=== PATIENT | male | born 1975 | race Caucasian/White ===

== ENCOUNTER 2017-11-08 11:14 | Emergency (ER) | payer OTHER ==
[2017-11-08] MEDS: NORCO, ANEXSIA 5/325MG TABLET (HYDROcodone/ACETAMINOPHEN) PO (12:16)
== END 2017-11-08 12:27 | disposition home or self-care (01) ==
LOC: M ED 11:14
DX: K04.7 Periapical abscess without sinus (principal); I10 Essential (primary) hypertension; Z91.013 Allergy to seafood; Z91.041 Radiographic dye allergy status; F17.210 Nicotine dependence, cigarettes, uncomplicated
CPT/HCPCS: 99283

== ENCOUNTER → 2019-04-24 | Outpatient (REF) | payer OTHER ==
[~2019-04-24] MED LIST: AUGMSUS PO; HYDR-3715 PO; IBUP-1022 PO; MAGICMW SSP
[2019-04-24 11:17] LABS: BASO # 0.1 10^3/uL (0.0-0.2); EOS # 0.3 10^3/uL (0.0-0.5); EOS % 2.8 % (0.0-3.0); HEMOGLOBIN 14.3 g/dl (13.5-17.5); LYMPH # 2.6 10^3/uL (1.5-5.0); LYMPH % 21.3 % (24.0-44.0); MEAN CORPUSCULAR HGB CONC 33.3 g/dl (32.0-36.5); MEAN CORPUSCULAR VOLUME 93.1 fl (80.0-96.0); MONO # 0.9 10^3/uL (0.0-0.8); MONO % 7.2 % (0.0-5.0); NEUTROPHILS # 8.2 10^3/uL (1.5-8.5); NEUTROPHILS % 67.3 % (36.0-66.0); PLATELET COUNT, AUTOMATED 199 10^3/uL (150-450); RED BLOOD COUNT 4.62 10^6/uL (4.30-6.10); WHITE BLOOD COUNT 12.2 10^3/uL (4.0-10.0)
[2019-04-24 11:36] LABS: ALBUMIN 3.9 GM/DL (3.2-5.2); ALT/SGPT 181 U/L (12-78); BILIRUBIN,TOTAL 0.6 MG/DL (0.2-1.0); BLOOD UREA NITROGEN 7 MG/DL (7-18); CALCIUM LEVEL 8.7 MG/DL (8.5-10.1); CARBON DIOXIDE LEVEL 29 MEQ/L (21-32); CHLORIDE LEVEL 106 MEQ/L (98-107); CHOLESTEROL LEVEL 269 MG/DL (<200); CHOLESTEROL RISK RATIO 6.897 (<5); CREATININE FOR GFR 0.86 MG/DL (0.70-1.30); FREE T4 1.17 NG/DL (0.76-1.46); GLOMERULAR FILTRATION RATE > 60.0 (>60); GLUCOSE, FASTING 128 MG/DL (70-100); HDL CHOLESTEROL 39 MG/DL (>40); LDL CHOLESTEROL 195 MG/DL (<100); NON-HDL-C 230 MG/DL; POTASSIUM SERUM 4.3 MEQ/L (3.5-5.1); SODIUM LEVEL 139 MEQ/L (136-145); THYROID STIMULATING HORMONE 0.841 uIU/ML (0.358-3.740); TOTAL PROTEIN 7.9 GM/DL (6.4-8.2); TRIGLYCERIDES LEVEL 173 MG/DL (<150)
[2019-04-24 11:43] LABS: HEMOGLOBIN A1c 7.1 %
== END ==
LOC: M SFHCPLAZ 09:42
PROVIDERS: ATTEND Nurse Practitioner Family
DX: I10 Essential (primary) hypertension (principal); Z13.228 Encounter for screening for other metabolic disorders; Z13.220 Encounter for screening for lipoid disorders

== ENCOUNTER 2020-06-23 14:06 | Emergency (ER) | payer OTHER ==
[~2020-06-23] VITALS: Ht 170.2 cm; Wt 110.9 kg
[2020-06-23 14:07] VITALS: BP 173/103
[2020-06-23] MEDS ORDERED: LISI10TA22 (14:24)
== END 2020-06-23 18:43 | disposition left against medical advice (07) ==
LOC: M ED 14:06
DX: Z53.21 Procedure and treatment not carried out due to patient leaving prior to being seen by health care provider (principal)

== ENCOUNTER → 2020-07-02 | Outpatient (CLI) | payer OTHER ==
[~2020-07-02] MED LIST changes: +LISI10TA22
--- NOTE | 2020-07-02 11:23 | REP ---
INDICATION: RUQ PAIN. COMPARISON: None FINDINGS: Multiple ultrasonographic images of the liver show diffuse increased echoes throughout the hepatic parenchyma without evidence of a mass or ductal dilatation. The common bile duct measures approximately 3.7 mm in its greatest transverse dimension. The maximal hepatic dimension is approximately 19.2 cm. Multiple ultrasonographic images of the gallbladder show no focal or diffuse gallbladder wall thickening. There are no echogenic foci within the gallbladder lumen, which casts acoustic shadows. There is no pericholecystic edema. Images of the pancreatic region show no gross abnormality. The imaged portion of the right kidney is unremarkable. IMPRESSION: Fatty infiltration of the liver. There is evidence of mild hepatomegaly. Accredited by the [employer] in General Ultrasound. <Electronically signed by Zack Barroso > 07/02/20 [id number]
== END ==
LOC: M RAD 10:16
PROVIDERS: ATTEND Nurse Practitioner Family
DX: R10.9 Unspecified abdominal pain (principal)

== ENCOUNTER → 2020-07-02 | Outpatient (REF) | payer OTHER ==
[2020-07-02 11:26] LABS: BASO # 0.1 10^3/uL (0.0-0.2); BASO % 1.3 % (0.0-1.0); EOS # 0.4 10^3/uL (0.0-0.5); EOS % 5.8 % (0.0-3.0); HEMATOCRIT 41.1 % (42.0-52.0); HEMOGLOBIN 13.9 g/dl (13.5-17.5); LYMPH # 2.2 10^3/uL (1.5-5.0); LYMPH % 31.6 % (24.0-44.0); MEAN CORPUSCULAR HEMOGLOBIN 31.2 pg (27.0-33.0); MEAN CORPUSCULAR HGB CONC 33.8 g/dl (32.0-36.5); MEAN CORPUSCULAR VOLUME 92.2 fl (80.0-96.0); MONO # 0.4 10^3/uL (0.0-0.8); MONO % 5.9 % (2.0-8.0); NEUTROPHILS # 3.9 10^3/uL (1.5-8.5); NEUTROPHILS % 55.1 % (36.0-66.0); PLATELET COUNT, AUTOMATED 187 10^3/uL (150-450); RED BLOOD COUNT 4.46 10^6/uL (4.30-6.10); WHITE BLOOD COUNT 7.1 10^3/uL (4.0-10.0)
[2020-07-02 11:37] LABS: INR 0.93; PROTHROMBIN TIME 12.7 SECONDS (12.5-14.3)
[2020-07-02 12:13] LABS: HEMOGLOBIN A1c 7.7 %
[2020-07-02 12:16] LABS: ALBUMIN 4.1 GM/DL (3.2-5.2); ALT/SGPT 194 U/L (12-78); BILIRUBIN,TOTAL 0.6 MG/DL (0.2-1.0); BLOOD UREA NITROGEN 9 MG/DL (7-18); C REACTIVE PROTEIN QUANTITATIV 1.51 MG/DL (0.00-0.30); CALCIUM LEVEL 9.2 MG/DL (8.5-10.1); CARBON DIOXIDE LEVEL 27 MEQ/L (21-32); CHLORIDE LEVEL 102 MEQ/L (98-107); CHOLESTEROL LEVEL 284 MG/DL (<200); CHOLESTEROL RISK RATIO 6.042 (<5); CREATININE FOR GFR 0.84 MG/DL (0.70-1.30); FERRITIN 272 NG/ML (26-388); FREE T4 1.06 NG/DL (0.76-1.46); GLOMERULAR FILTRATION RATE > 60.0 (>60); GLUCOSE, FASTING 194 MG/DL (70-100); HDL CHOLESTEROL 47 MG/DL (>40); IRON (FE) 96 UG/DL (65-175); LDL CHOLESTEROL 201 MG/DL (<100); NON-HDL-C 237 MG/DL; POTASSIUM SERUM 4.2 MEQ/L (3.5-5.1); SODIUM LEVEL 136 MEQ/L (136-145); TOTAL PROTEIN 8.2 GM/DL (6.4-8.2); TRIGLYCERIDES LEVEL 181 MG/DL (<150)
[2020-07-02 12:25] LABS: CREATININE, URINE 67.1 MG/DL; MAU/CREAT RATIO 1421.7 MCG/MG (0.0-30.0)
== END ==
LOC: M SFHCPLAZ 09:40
PROVIDERS: ATTEND Nurse Practitioner Family
DX: R10.11 Right upper quadrant pain (principal); I10 Essential (primary) hypertension; R74.8 Abnormal levels of other serum enzymes; E78.5 Hyperlipidemia, unspecified; E11.9 Type 2 diabetes mellitus without complications; S30.1XXA Contusion of abdominal wall, initial encounter; W18.30XA Fall on same level, unspecified, initial encounter; Y92.009 Unspecified place in unspecified non-institutional (private) residence as the place of occurrence of the external cause

== ENCOUNTER 2020-07-04 11:50 | Emergency (ER) | payer OTHER ==
[~2020-07-04] VITALS: Ht 172.7 cm; Wt 112.2 kg
[2020-07-04] MEDS ORDERED: diphenhydrAMINE 50MG/ML VIAL (J1200) IV STA (12:09)
[2020-07-04] MEDS ORDERED: methylPREDNISolone 125MG 2ML VIAL IV ONE (12:10)
[2020-07-04] MEDS ORDERED: MORPHINE 4 MG/ML 1ML VIAL/SYRINGE (J2270) IV PRN (12:10)
[2020-07-04] MEDS ORDERED: ONDANSETRON 4MG/2ML VIAL IV ONE (12:10)
[2020-07-04 12:28] LABS: HEMATOCRIT 39.4 % (42.0-52.0); HEMOGLOBIN 13.5 g/dl (13.5-17.5); MEAN CORPUSCULAR HEMOGLOBIN 31.1 pg (27.0-33.0); MEAN CORPUSCULAR HGB CONC 34.3 g/dl (32.0-36.5); MEAN CORPUSCULAR VOLUME 90.8 fl (80.0-96.0); PLATELET COUNT, AUTOMATED 195 10^3/uL (150-450); RED BLOOD COUNT 4.34 10^6/uL (4.30-6.10)
[2020-07-04 12:46] LABS: INR 0.96
[2020-07-04] MEDS ORDERED: ISOVUE-370 76% 100ML VIAL As Ordered ONE (12:55)
[2020-07-04 12:57] LABS: ALBUMIN 3.7 GM/DL (3.2-5.2); BILIRUBIN,DIRECT 0.2 MG/DL (0.0-0.2); BILIRUBIN,TOTAL 0.8 MG/DL (0.2-1.0); TOTAL PROTEIN 7.6 GM/DL (6.4-8.2)
[2020-07-04 13:06] LABS: ATYPICAL LYMPH 1 % (0-5); EOSINOPHILS 7 % (0-3); LYMPHOCYTES 29 % (16-44); MONOCYTES 3 % (0-5); NEUTROPHILS 60 % (28-66); PLATELET ESTIMATE NORMAL (NORMAL)
--- NOTE | 2020-07-04 13:26 | REP ---
INDICATION: abd pain/brusing anterior abd and flank ? retro bleed. COMPARISON: None TECHNIQUE: Standard helical technique after the intravenous administration of 100 cc Isovue 370 FINDINGS: Mild chronic changes are seen in the lung bases. There are no pleural or pericardial effusions. There is hepatomegaly. The gallbladder, spleen, pancreas, adrenal glands, and kidneys are within normal limits. The abdominal aorta and para-regions are within normal limits. The bowel loops the mesenteries are within normal limits. There is no free fluid or free air. There is no mass or adenopathy. In the right upper mid abdominal region within the lateral soft tissues there is an approximately 14 by 4.4 by 11 cm sized area of soft tissue thickening and mixed density. There are no underlying rib fractures. This includes and is external to the transversalis muscle and fascia. This extends to the deep subcutanea. There are no concomitant well-demarcated air-fluid levels. Bone window technique throughout the examination shows no evidence of a fracture. IMPRESSION: 1. Soft tissue contusion and likely concomitant extraperitoneal hematoma as described above. 2. Hepatomegaly. <Electronically signed by Zack Barroso > 07/04/20 [id number]
[2020-07-04] MEDS ORDERED: PERC5TAB12 PO ×2 (14:22→14:30)
[2020-07-04 14:45] VITALS: BP 163/98
--- NOTE | 2020-07-04 18:19 | ECGEPIP ---
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
== END 2020-07-04 15:09 | disposition home or self-care (01) ==
LOC: M ED 11:50
DX: S30.1XXA Contusion of abdominal wall, initial encounter (principal); X58.XXXA Exposure to other specified factors, initial encounter; Y92.89 Other specified places as the place of occurrence of the external cause; E11.9 Type 2 diabetes mellitus without complications; I10 Essential (primary) hypertension; E78.5 Hyperlipidemia, unspecified; Z91.041 Radiographic dye allergy status; F17.210 Nicotine dependence, cigarettes, uncomplicated
CPT/HCPCS: 74177; 80047; 80076; 83690; 85025; 85610; 86850; 86900; 86901; 93005; 93041; 96374; 96375; 99285; J1200; J2270; J2405; J2930; Q9967

== ENCOUNTER → 2020-11-24 | Outpatient (CLI) | payer OTHER ==
[~2020-11-24] MED LIST changes: +PERC5TAB12 PO
[2020-11-24 13:36] LABS: BASO # 0.1 10^3/uL (0.0-0.2); BASO % 1.3 % (0.0-1.0); EOS # 0.2 10^3/uL (0.0-0.5); EOS % 2.8 % (0.0-3.0); HEMATOCRIT 43.6 % (42.0-52.0); HEMOGLOBIN 14.2 g/dl (13.5-17.5); LYMPH # 2.6 10^3/uL (1.5-5.0); LYMPH % 40.7 % (24.0-44.0); MEAN CORPUSCULAR HEMOGLOBIN 29.8 pg (27.0-33.0); MEAN CORPUSCULAR HGB CONC 32.6 g/dl (32.0-36.5); MEAN CORPUSCULAR VOLUME 91.4 fl (80.0-96.0); MONO # 0.4 10^3/uL (0.0-0.8); MONO % 6.8 % (2.0-8.0); NEUTROPHILS % 47.9 % (36.0-66.0); PLATELET COUNT, AUTOMATED 212 10^3/uL (150-450); RED BLOOD COUNT 4.77 10^6/uL (4.30-6.10); WHITE BLOOD COUNT 6.3 10^3/uL (4.0-10.0)
[2020-11-24 14:53] LABS: CREATININE, URINE 34.4 MG/DL; MALB URINE SIEMENS 41.7 MG/L; MAU/CREAT RATIO 121.2 MCG/MG (0.0-30.0)
[2020-11-24 15:45] LABS: ALT/SGPT 217 U/L (12-78); BILIRUBIN,TOTAL 0.3 MG/DL (0.2-1.0); BLOOD UREA NITROGEN 9 MG/DL (7-18); CALCIUM LEVEL 9.5 MG/DL (8.5-10.1); CARBON DIOXIDE LEVEL 28 MEQ/L (21-32); CHLORIDE LEVEL 104 MEQ/L (98-107); CHOLESTEROL LEVEL 279 MG/DL (<200); CHOLESTEROL RISK RATIO 5.936 (<5); CREATININE FOR GFR 0.87 MG/DL (0.70-1.30); GLOMERULAR FILTRATION RATE > 60.0 (>60); GLUCOSE, FASTING 104 MG/DL (70-100); HDL CHOLESTEROL 47 MG/DL (>40); LDL CHOLESTEROL 213 MG/DL (<100); NON-HDL-C 232 MG/DL; POTASSIUM SERUM 4.5 MEQ/L (3.5-5.1); SODIUM LEVEL 137 MEQ/L (136-145); THYROID STIMULATING HORMONE 0.587 uIU/ML (0.358-3.740); TOTAL PROTEIN 8.2 GM/DL (6.4-8.2); TRIGLYCERIDES LEVEL 97 MG/DL (<150)
[2020-11-24 18:04] LABS: HEMOGLOBIN A1c 7.1 %
== END ==
LOC: M PLALAB 10:54
PROVIDERS: ATTEND Nurse Practitioner Family
DX: E11.9 Type 2 diabetes mellitus without complications (principal); E78.5 Hyperlipidemia, unspecified; I10 Essential (primary) hypertension

== ENCOUNTER 2021-01-03 08:19 | Emergency (ER) | payer OTHER ==
[~2021-01-03] VITALS: Ht 172.7 cm; Wt 103.2 kg
--- OUTSIDE RECORDS SUMMARY | 2021-01-03 08:29 | CCD ---
Author Author [facility] Organization [facility] Address Unknown Phone Unavailable Care Team Providers Care Commercial Horticulture Instructor Name Role Phone Maring, Marko PA Unavailable Unavailable Maring, Marko PA Unavailable Unavailable Maring, Marko PA Unavailable Unavailable Maring, Marko PA Unavailable Unavailable Maring, Marko PA Unavailable Unavailable Maring, Marko PA Unavailable Unavailable Maring, Marko PA Unavailable Unavailable Maring, Marko PA Unavailable Unavailable Maring, Mrako PA Unavailable Unavailable Maring, Marko PA Unavailable Unavailable Maring, Marko PA Unavailable Unavailable Maring, Marko PA Unavailable Unavailable Maring, Marko PA Unavailable Unavailable Maring, Marko PA Unavailable Unavailable Maring, Marko PA Unavailable Unavailable Maring, Marko PA Unavailable Unavailable Oswaldo Banuelos MD Unavailable Unavailable Oswaldo Banuelos MD Unavailable Unavailable Oswaldo Banuelos MD Unavailable Unavailable Oswaldo Banuelos MD Unavailable Unavailable Oswaldo Banuelos MD Unavailable Unavailable Oswaldo Banuelos MD Unavailable Unavailable Banuelos, C Lara MD Unavailable Unavailable Banuelos, C Lara MD Unavailable Unavailable Banuelos, C Lara MD Unavailable Unavailable Banuelos, C Lara MD Unavailable Unavailable Banuelos, C Lara MD Unavailable Unavailable Banuelos, C Lara MD Unavailable Unavailable Banuelos, C Lara MD Unavailable Unavailable Banuelos, C Lara MD Unavailable Unavailable Banuelos, C Lara MD Unavailable Unavailable Banuelos, C Lara MD Unavailable Unavailable Banuelos, C Lara MD Unavailable Unavailable Banuelos, C Lara MD Unavailable Unavailable Banuelos, C Lara MD Unavailable Unavailable Banuelos, C Lara MD Unavailable Unavailable Banuelos, C Lara MD Unavailable Unavailable Banuelos, C Lara MD Unavailable Unavailable Banuelos, C Lara MD Unavailable Unavailable Banuelos, C Lara MD Unavailable Unavailable Banuelos, C Lara MD Unavailable Unavailable Re-disclosure Warning The records that you are about to access may contain information from federally-assisted alcohol or drug abuse programs. If such information is present, then the following federally mandated warning applies: This information has been disclosed to you from records protected by federal confidentiality rules (42 CFR part 2). The federal rules prohibit you from making any further disclosure of this information unless further disclosure is expressly permitted by the written consent of the person to whom it pertains or as otherwise permitted by 42 CFR part 2. A general authorization for the release of medical or other information is NOT sufficient for this purpose. The Federal rules restrict any use of the information to criminally investigate or prosecute any alcohol or drug abuse patient.The records that you are about to access may contain highly sensitive health information, the redisclosure of which is protected by Article 27-F of the [facility] Public Health law. If you continue you may have access to information: Regarding HIV / AIDS; Provided by facilities licensed or operated by the [facility] Office of Mental Health; or Provided by the [facility] Office for People With Developmental Disabilities. If such information is present, then the following [facility] mandated warning applies: This information has been disclosed to you from confidential records which are protected by state law. State law prohibits you from making any further disclosure of this information without the specific written consent of the person to whom it pertains, or as otherwise permitted by law. Any unauthorized further disclosure in violation of state law may result in a fine or mcfp sentence or both. A general authorization for the release of medical or other information is NOT sufficient authorization for further disc losure. Encounters Encounter Providers Location Date Indications Data Source(s ) [place] [address] [facility] [address] 11/24/2020 12:00:00 AM EDT eCW1 ([facility]) Outpatient Attender: Marko PHAN 11/02/19 03:48:23 PM EDT - 11/01/2020 04:12:59 PM EDT [facility] ([facility] ) [place] [address] [facility] [address] 07/14/2020 12:00:00 AM EDT eCW1 ([facility]) [place] [address] [facility] [address] 07/03/2020 12:00:00 AM EDT eCW1 ([facility]) Unknown [address] [facility] [address] 07/03/2020 12:00:00 AM EDT eCW1 ([facility]) Outpatient Attender: Marko PHAN 06/27/19 08:11:34 AM EDT - 06/26/2020 08:56:10 AM EDT [facility] ([facility] ) [place] [address] [address] 06/23/2020 12:00:00 AM EDT eCW1 ([facility]) Outpatient [address] [address] 06/06/2020 12:00:00 AM EDT eCW1 ([facility]) [place] [address] [address] 06/06/2020 12:00:00 AM EDT eCW1 ([facility]) Outpatient Attender: Lara Banuelos MD 0 04/25/2020 11:08:33 AM EST - 04/25/2020 12:40:34 PM EST [facility] ([facility]) Unknown [address] [facility] [address] 12/26/2019 12:00:00 AM EDT eCW1 ([facility]) Immunizations Vaccine Date Status Description Data Source(s) COVID-19 VACCINE Pfizer 10/26/2020 12:00:00 AM EDT completed [facility] Vaccine Series Complete: YESThis Data wa s Submitted to [facility] Via [employer]. COVID-19 VACCINE Pfizer 10/06/2020 12:00:00 AM EDT completed [facility] Vaccine Series Complete: NOThis Data was Submitted to [facility] [employer]. Medications Medication Brand Name Start Date Product Form Dose Route Admi nistrative Instructions Pharmacy Instructions Status Indications Reaction Description Data Source(s) Steglatro 15 MG Steglatro 15 MG 07/02/2020 12:00:00 AM EDT 1.0 { tablet} active Steglatro 15 MG eCW1 ([facility]) alogliptin 25 MG Oral Tablet Alogliptin Benzoate 25 MG Alogliptin Benzoate 25 MG 07/02/2020 12:00:00 AM EDT 1.0 {tablet} activ e Alogliptin Benzoate 25 MG eCW1 ([facility]) alogliptin 25 MG Oral Tablet Alogliptin Benzoate 25 MG Alogliptin Benzoate 25 MG 07/02/2020 12:00:00 AM EDT 1.0 {tablet} activ e Alogliptin Benzoate 25 MG eCW1 ([facility]) Steglatro 15 MG Steglatro 15 MG 07/02/2020 12:00:00 AM EDT 1.0 { tablet} active Steglatro 15 MG eCW1 ([facility]) Augmentin 875-125 MG UNK 06/06/2020 12:00:00 AM EDT 1.0 {tablet } active Augmentin 875-125 MG eCW1 ([facility]) Augmentin 875-125 MG UNK 06/06/2020 12:00:00 AM EDT 1.0 {tablet } active Augmentin 875-125 MG eCW1 ([facility]) Augmentin 875-125 MG UNK 06/06/2020 12:00:00 AM EDT 1.0 {tablet } active Augmentin 875-125 MG eCW1 ([facility]) Insurance Providers Payer name Policy type / Coverage type Policy ID Covered alliance party ID Covered alliance party's relationship to kwan Policy Kwan Plan Information E-Generator. [id number] Self [id number] RPR- Needs Payer Match [id number] Self [id number] RPR- Needs Payer Match [id number] Self [id number] [facility] [id number] DINA [id number] SP [id number] SELF PAY [id number] SP [id number] Problems, Conditions, and Diagnoses No Information Surgeries/Procedures Procedure Description Date Indications Data Source(s) ECG ROUTINE ECG W/LEAST 12 LDS W/I&R 06/06/2020 12:00: 00 AM EDT eCW1 ([facility]) Results ID Date Data Source Islet Cell Antibodies 11/24/2020 12:00:00 AM EDT eCW1 ([facility]) Name Value Range Interpretation Code Description Data Danielle rce(s) Supporting Document(s) Negative Neg:<1:1 ISLET CELL ANTIBODIES eCW 1 ([facility]) ID Date Data Source [id number] AUTOANTIBODY 11/24/2020 12:00:00 AM EDT eCW1 ([facility]) Name Value Range Interpretation Code Description Data Danielle rce(s) Supporting Document(s) <5.0 0.0-5.0 [id number] AUTOANTIBODY eCW1 ([facility]) ID Date Data Source C-PEPTIDE 11/24/2020 12:00:00 AM EDT eCW1 ([facility]) Name Value Range Interpretation Code Description Data Danielle rce(s) Supporting Document(s) 4.9 1.1-4.4 C-PEPTIDE eCW1 ([facility]) ID Date Data Source [id number] 11/24/2020 12:00:00 AM EDT eCW1 ([facility]) Name Value Range Interpretation Code Description Data Danielle rce(s) Supporting Document(s) Hemoglobin A1c/Hemoglobin.total in Blood 7.1 HEMOGLOBIN A1c eCW1 ([facility]) ID Date Data Source [id number] 11/24/2020 12:00:00 AM EDT eCW1 ([facility]) Name Value Range Interpretation Code Description Data Danielle rce(s) Supporting Document(s) Microalbumin/Creatinine [Mass Ratio] in Urine 34.4 CREATININE, URINE eCW1 ([facility]) Albumin/Creatinine [Mass Ratio] in Urine 41.7 MALB URINE SIEMENS eCW1 ([facility]) Microalbumin/Creatinine [Ratio] in Urine 121.2 0.0-30.0 LEONIDAS/CREAT RATIO eCW1 ([facility]) ID Date Data Source TSH 11/24/2020 12:00:00 AM EDT eCW1 ([facility]) Name Value Range Interpretation Code Description Data Danielle rce(s) Supporting Document(s) 0.587 0.358-3.740 THYROID STIMULATING HORM ONE eCW1 ([facility]) ID Date Data Source LIPID PANEL (CARDIAC RISK) 11/24/2020 12:00:00 AM EDT eCW1 ( [facility]) Name Value Range Interpretation Code Description Data Danielle rce(s) Supporting Document(s) Triglyceride [Mass/volume] in Serum or Plasma by calculation 97 <150 TRIGLYCERIDES LEVEL eCW1 ([facility]) Cholesterol [Moles/volume] in Serum or Plasma 279 <200 CHOLESTEROL LEVEL eC ([facility]) Cholesterol in LDL [Mass/volume] in Serum or Plasma by calculation 213 <100 LDL CHOLESTEROL eCW1 ([facility]) Cholesterol in HDL [Moles/volume] in Serum or Plasma 47 >40 HDL CHOLESTEROL eCW1 ([facility]) 232 NON-HDL-C eCW1 ([facility]) 5.936 <5 CHOLESTEROL RISK RATIO eCW ([facility]) ID Date Data Source FREE T4 11/24/2020 12:00:00 AM EDT eCW1 ([facility]) Name Value Range Interpretation Code Description Data Danielle rce(s) Supporting Document(s) 1.00 0.76-1.46 FREE T4 eCW1 ([facility]) ID Date Data Source Comprehensive Metabolic Profile (CMP) 11/24/2020 12:00:00 AM EDT eCW1 ([facility]) Name Value Range Interpretation Code Description Data Danielle rce(s) Supporting Document(s) 104 70-100 GLUCOSE, FASTING eCW1 ([facility]) 9 7-18 BLOOD UREA NITROGEN eCW1 ([facility]) 0.87 0.70-1.30 CREATININE FOR GFR eCW1 ([facility]) > 60.0 >60 GLOMERULAR FILTRATION RATE eCW 1 ([facility]) 104 98-107 CHLORIDE LEVEL eCW1 ([facility]) 4.5 3.5-5.1 POTASSIUM SERUM eCW1 ([facility]) 28 21-32 CARBON DIOXIDE LEVEL eCW1 ([facility]) 137 136-145 SODIUM LEVEL eCW1 ([facility]) 83 7-37 AST/SGOT eCW1 ([facility]) 9.5 8.5-10.1 CALCIUM LEVEL eCW1 ([facility]) 217 12-78 ALT/SGPT eCW1 ([facility]) 0.3 0.2-1.0 BILIRUBIN,TOTAL eCW1 ([facility]) 74 45-117 ALKALINE PHOSPHATASE eCW1 ([facility]) 8.2 6.4-8.2 TOTAL PROTEIN eCW1 ([facility]) 4.0 3.2-5.2 ALBUMIN eCW1 ([facility]) 1.0 ALBUMIN/GLOBULIN RATIO eCW1 ([facility]) ID Date Data Source CBC with Differential 11/24/2020 12:00:00 AM EDT eCW1 ([facility]) Name Value Range Interpretation Code Description Data Danielle rce(s) Supporting Document(s) 6.3 4.0-10.0 WHITE BLOOD COUNT eCW1 ([facility]) 43.6 42.0-52.0 HEMATOCRIT eCW1 ([facility]) 14.2 13.5-17.5 HEMOGLOBIN eCW1 ([facility]) 4.77 4.30-6.10 RED BLOOD COUNT eCW1 ([facility]) 91.4 80.0-96.0 MEAN CORPUSCULAR VOLUME e CW1 ([facility]) 29.8 27.0-33.0 MEAN CORPUSCULAR HEMOGLOB IN eCW1 ([facility]) 32.6 32.0-36.5 MEAN CORPUSCULAR HGB CONC eCW1 ([facility]) 13.2 11.5-14.5 RED CELL DISTRIBUTION WID TH eCW1 ([facility]) 212 150-450 PLATELET COUNT, AUTOMATED eCW1 ([facility]) 40.7 24.0-44.0 LYMPH % eCW1 ([facility]) 47.9 36.0-66.0 NEUTROPHILS % eCW1 ([facility]) 6.8 2.0-8.0 MONO % eCW1 ([facility]) 3.0 1.5-8.5 NEUTROPHILS # eCW1 ([facility]) 1.3 0.0-1.0 BASO % eCW1 ([facility]) 2.6 1.5-5.0 LYMPH # eCW1 ([facility]) 2.8 0.0-3.0 EOS % eCW1 ([facility]) 0.1 0.0-0.2 BASO # eCW1 ([facility]) 0.4 0.0-0.8 MONO # eCW1 ([facility]) 0.2 0.0-0.5 EOS # eCW1 ([facility]) Procedure Social History Code Duration Value Status Description Data Source(s ) Smoking 11/24/2020 12:00:00 AM EDT Current Smoker completed Curre nt Smoker eCW1 ([facility]) Smoking 07/14/2020 12:00:00 AM EDT Current Smoker completed Curre nt Smoker eCW1 ([facility]) Smoking 07/02/2020 12:00:00 AM EDT Current Smoker completed Curre nt Smoker eCW1 ([facility]) Smoking 07/02/2020 12:00:00 AM EDT Current Smoker completed Curre nt Smoker eCW1 ([facility]) Smoking 06/06/2020 12:00:00 AM EDT Current Smoker completed Curre nt Smoker eCW1 ([facility]) Smoking 06/06/2020 12:00:00 AM EDT Current Smoker completed Curre nt Smoker eCW1 ([facility]) Smoking 06/06/2020 12:00:00 AM EDT Current Smoker completed Curre nt Smoker eCW1 ([facility]) Vital Signs ID Date Data Source UNK Name Value Range Interpretation Code Description Data Source(s) Body weight 223.8 [lb_av] 223.8 [lb_av] eCW1 ([facility]) Body weight 101.52 kg 101.52 kg eCW1 ([facility]) Body height 67 [in_i] 67 [in_i] eCW1 ([facility]) Body mass index (BMI) [Ratio] 35.05 kg/m2 35.05 kg/m2 eCW1 ([facility]) Heart rate 103 /min 103 /min eCW1 ([facility]) Respiratory rate 18 /min 18 /min eCW1 ([facility]) Body temperature 97.1 [degF] 97.1 [degF] eCW1 ( [facility]) Systolic blood pressure 130 mm[Hg] 130 mm[Hg] e CW1 ([facility]) Diastolic blood pressure 78 mm[Hg] 78 mm[Hg] eCW1 ([facility]) Body weight 237 [lb_av] 237 [lb_av] eCW1 ([facility]) Body height 67 [in_i] 67 [in_i] eCW1 ([facility]) Body mass index (BMI) [Ratio] 37.12 kg/m2 37.12 kg/m2 eCW1 ([facility]) Heart rate 114 /min 114 /min eCW1 ([facility]) Respiratory rate 18 /min 18 /min eCW1 ([facility]) Body temperature 97.5 [degF] 97.5 [degF] eCW1 ( [facility]) Systolic blood pressure 132 mm[Hg] 132 mm[Hg] e CW1 ([facility]) Diastolic blood pressure 80 mm[Hg] 80 mm[Hg] eCW1 ([facility]) Body weight 245 [lb_av] 245 [lb_av] eCW1 ([facility]) Body height 67 [in_i] 67 [in_i] eCW1 ([facility]) Body mass index (BMI) [Ratio] 38.37 kg/m2 38.37 kg/m2 eCW1 ([facility]) Heart rate 125 /min 125 /min eCW1 ([facility]) Respiratory rate 18 /min 18 /min eCW1 ([facility]) Body temperature 97.3 [degF] 97.3 [degF] eCW1 ( [facility]) Systolic blood pressure 136 mm[Hg] 136 mm[Hg] e CW1 ([facility]) Diastolic blood pressure 82 mm[Hg] 82 mm[Hg] eCW1 ([facility]) Patient Treatment Plan of Care Planned Activity Planned Date Details Description Data Source (s) alogliptin 25 MG Oral Tablet 07/02/2020 12:00:00 AM EDT eCW1 ([facility]) Steglatro 15 MG 07/02/2020 12:00:00 AM EDT eCW1 ([facility]) alogliptin 25 MG Oral Tablet 07/02/2020 12:00:00 AM EDT eCW1 ([facility]) Steglatro 15 MG 07/02/2020 12:00:00 AM EDT eCW1 ([facility]) Augmentin 875-125 MG 06/06/2020 12:00:00 AM EDT eCW1 ([facility]) Augmentin 875-125 MG 06/06/2020 12:00:00 AM EDT eCW1 ([facility]) Augmentin 875-125 MG 06/06/2020 12:00:00 AM EDT eCW1 ([facility])
--- OUTSIDE RECORDS SUMMARY | 2021-01-03 08:29 | CCD ---
Author Author [facility] Organization [facility] Address Unknown Phone Unavailable Care Team Providers Care Compliance Advisor Name Role Phone Amairani Lane Unavailable PROBLEMS Type Condition ICD9-CM Code [id number] Code Onset Dates Condition S tatus W/U Status Risk SNOMED Code Notes Problem Obesity (BMI 30-39.9) E66.9 Active confirmed 101743059 Problem Essential hypertension I10 Active confirmed 57471831 Problem Diabetes mellitus, type 2 E11.9 Active confirmed 46851647 Problem Alcohol abuse, daily use F10.10 Active confirmed 70709390 Problem Hyperlipidemia E78.5 Active confirmed 65356 004 ALLERGIES Allergen (clinical drug ingredient) Drug/Non Drug Allergy do cumented on EMR Reaction Allergy Type Onset Date Status contrast Dye Rash Non Drug Allergy Active ENCOUNTERS from 1973 to 2020-12-01 Encounter Location Date Provider Diagnosis [address] [phone] [place] [address] 13 Nov, [address] Essential hypertension I10 ; Obesity (BMI 30-39.9) E66.9 ; Diabetes mellitus, type 2 E11.9 ; Hyperlipidemia E78.5 ; Elevated liver enzymes R74.8 and Alcohol abuse, daily use F10.10 IMMUNIZATIONS No Information SOCIAL HISTORY Tobacco Use: Social History Observation Description Date Details (start date - stop date) Current Smoker Sex Assigned At : Social History Observation Description Sex Assigned At Unknown Education: Question Answer Notes Level of Education: Finished College Language: Question Answer Notes Languages spoken: Icelandic Jew: Question Answer Notes Jew 31 None Alcohol Screening: Question Answer Notes Did you have a drink containing alcohol in the past year? Ye s Points 4 Interpretation Positive How often did you have six or more drinks on one occas ion in the past year? Never (0 points) How many drinks did you have on a typica l day when you were drinking in the past year? 1 or 2 (0 points) How often did you have a drink containing alcohol in t he past year? Four or more times a week (4 points) Tobacco Use: Question Answer Notes Are you a: current smoker Smoking Cessation Information Given 05/01/2019 Patient counseled on the dangers of tobacco use and urged to quit: 05/01/2019 How many cigarettes a day do you smoke? 11-20 Are you interested in quitting? Thinking about quitting Counseled the patient on smoking cessation, education provid ed 05/01/2019 REASON FOR REFERRAL No Information VITAL SIGNS Weight 223.8 lbs Nov, Weight-kg 101.52 kg Nov, Height 67 in Nov, BMI 35.05 kg/m2 Nov, Heart Rate 103 /min Nov, Respiratory Rate 18 /min Nov, Temperature 97.1 degrees Fahrenheit Nov, Oximetry 97% Nov, Blood pressure systolic 130 mm Hg Nov, Blood pressure diastolic 78 mm Hg Nov, MEDICATIONS Medication SIG (Take, Route, Frequency, Duration) Notes Start Da te End Date Status Alogliptin Benzoate 25 MG 1 tablet Orally Once a day for 30 day(s) Active Steglatro 15 MG 1 tablet Orally Once a day for 30 day(s) Active BL Lancets 1 1 lancet e11.9 Daily for 90 day(s) Active Alcohol Swabs 70 % as directed e11.9 Daily for 90 day(s) Active OneTouch Verio 1 as directed E11.9 Daily for 90 day(s) Active Lisinopril 20 MG 1 tablet Orally Once a day for 30 day(s) Active Atorvastatin Calcium 20 MG 1 tablet Orally Once a day for 30 day(s) Active Aspirin 81 MG as directed Orally Once a day for 30 Active Glucometer (Verio IQ) as directed E11.9 Daily for 30 day(s) Active PROCEDURES No Information RESULTS Component Value Reference Range CBC with Differential Reviewed date:11/24/2020 17:07:00 Interpretation: Performing Lab:[facility], [facility] [id number] , ,[place] [address] WHITE BLOOD COUNT 6.3 4.0-10.0 RED BLOOD COUNT 4.77 4.30-6.10 HEMOGLOBIN 14.2 13.5-17.5 HEMATOCRIT 43.6 42.0-52.0 MEAN CORPUSCULAR VOLUME 91.4 80.0-96.0 MEAN CORPUSCULAR HEMOGLOBIN 29.8 27.0-33.0 MEAN CORPUSCULAR HGB CONC 32.6 32.0-36.5 RED CELL DISTRIBUTION WIDTH 13.2 11.5-14.5 PLATELET COUNT, AUTOMATED 212 150-450 NEUTROPHILS % 47.9 36.0-66.0 LYMPH % 40.7 24.0-44.0 MONO % 6.8 2.0-8.0 EOS % 2.8 0.0-3.0 BASO % 1.3 0.0-1.0 NEUTROPHILS # 3.0 1.5-8.5 LYMPH # 2.6 1.5-5.0 MONO # 0.4 0.0-0.8 EOS # 0.2 0.0-0.5 BASO # 0.1 0.0-0.2 Comprehensive Metabolic Profile (CMP) Reviewed date:11/24/2020 17:06:49 Interpretation: Performing Lab:[facility], [facility] [address] [facility] [id number] , ,[place] [address] GLUCOSE, FASTING 104 70-100 BLOOD UREA NITROGEN 9 7-18 CREATININE FOR GFR 0.87 0.70-1.30 GLOMERULAR FILTRATION RATE > 60.0 >60 SODIUM LEVEL 137 136-145 POTASSIUM SERUM 4.5 3.5-5.1 CHLORIDE LEVEL 104 98-107 CARBON DIOXIDE LEVEL 28 21-32 CALCIUM LEVEL 9.5 8.5-10.1 AST/SGOT 83 7-37 ALT/SGPT 217 12-78 ALKALINE PHOSPHATASE 74 45-117 BILIRUBIN,TOTAL 0.3 0.2-1.0 TOTAL PROTEIN 8.2 6.4-8.2 ALBUMIN 4.0 3.2-5.2 ALBUMIN/GLOBULIN RATIO 1.0 FREE T4 Reviewed date:11/24/2020 17:06:02 Interpretation: Performing Lab:[facility] [address] [facility] [address] , ,[place] [address] FREE T4 1.00 0.76-1.46 LIPID PANEL (CARDIAC RISK) Reviewed date:11/24/2020 17:06:19 Interpretation: Performing Lab:[facility] [address] [facility] [address] , ,[place] [address] TRIGLYCERIDES LEVEL 97 <150 CHOLESTEROL LEVEL 279 <200 HDL CHOLESTEROL 47 >40 LDL CHOLESTEROL 213 <100 NON-HDL-C 232 CHOLESTEROL RISK RATIO 5.936 <5 TSH Reviewed date:11/24/2020 17:06:08 Interpretation: Performing Lab:[facility] hospital [facility]ATORY [address] [facility] [address] , ,[facility] THYROID STIMULATING HORMONE 0.587 0.358-3.740 MICROALBUMIN RANDOM Reviewed date:11/24/2020 17:06:27 Interpretation: Performing Lab:[facility] [address] [facility] [address] , ,[place] [address] CREATININE, URINE 34.4 MALB URINE SIEMENS 41.7 LEONIDAS/CREAT RATIO 121.2 0.0-30.0 HEMOGLOBIN A1c Reviewed date:11/25/2020 12:54:54 Interpretation: Performing Lab:[facility] hospital LAB[facility]ORY [address] [facility] [address] , ,[place] [address] HEMOGLOBIN A1c 7.1 ESTIMATED AVERAGE GLUCOSE 157 60-110 C-PEPTIDE Reviewed date:11/28/2020 17:19:36 Interpretation: Performing Lab:[facility], [facility] [address] [place] [address] , ,[place] [address] C-PEPTIDE 4.9 1.1-4.4 BECKY-65 AUTOANTIBODY Reviewed date:11/28/2020 17:19:44 Interpretation: Performing Lab:[facility], [facility] [address] [facility] [address] , ,[place] [address] BECKY-65 AUTOANTIBODY <5.0 0.0-5.0 Islet Cell Antibodies Reviewed date:11/28/2020 17:19:41 Interpretation: Performing Lab:[facility], [facility] [address] [facility] [address] , ,[place] [address] ISLET CELL ANTIBODIES Negative Neg:<1:1 REASON FOR VISIT SEPT F/U MEDICAL (GENERAL) HISTORY Type Description Date Medical History Hypertension Medical History Nicotine use disorder Medical History ETOH use Medical History Hepatomegaly Medical History Fatty liver disease Medical History Hyperlipidemia Medical History DM type 2 Surgical History No Surgical history information Goals Section No Information Health Concerns No Information MEDICAL EQUIPMENT No Information MENTAL STATUS No Information FUNCTIONAL STATUS No Information ASSESSMENTS Encounter Date Diagnosis Assessment Notes Treatment Notes Treatm ent Clinical Notes Nov, Essential hypertension (ICD-10 - I10) 06/2020 0.8, 9, K 4.2 LEONIDAS 1421 increase to 20,g 04/2019 7, 0.8, K 4.3 lisino 13 Nov, 2020 Obesity (BMI 30-39.9) (ICD-10 - E66.9) encouraged weight loss Nov, Diabetes mellitus, type 2 (ICD-10 - E11.9) advised compliance with medication/diet changes had no f/u since 04/2019 metformin had not taken (difficulty swallowing pills) 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 contingency: Islet cell sammi/BECKY 06/2020 7.7 LEONIDAS 1421 DIANE as per HTN 04/2019 7.1, 04/2019 TSH/T4 0.84, 1.17 Nov, Hyperlipidemia (ICD-10 - E78.5) atorvastatin 40mg [id number], 47, 181 04/2019 195, 39, 173 13 Nov, 2020 Elevated liver enzymes (ICD-10 - R74.8) advised to stay off of ETOH use 06/2020 103/ 194 13 Nov, 2020 Alcohol abuse, daily use (ICD-10 - F10.10) 24 oz of beer 2-3 daily Encouraged to quit smoking PLAN OF TREATMENT Medication Medication Name Sig Start Date Stop Date Alogliptin Benzoate 25 MG 1 tablet Orally Once a day for 30 day( s) Atorvastatin Calcium 20 MG 1 tablet Orally Once a day for 30 day (s) Alcohol Swabs 70 % as directed e11.9 Daily for 90 day(s) Lisinopril 20 MG 1 tablet Orally Once a day for 30 day(s) Steglatro 15 MG 1 tablet Orally Once a day for 30 day(s) BL Lancets 1 1 lancet e11.9 Daily for 90 day(s) Treatment Notes Assessment Notes Clinical Notes Essential hypertension 06/2020 0.8, 9, K 4.2 LEONIDAS 1421 increase to 20, 7, 0.8, K 4.3 lisino Obesity (BMI 30-39.9) encouraged weight loss Diabetes mellitus, type 2 advised compli ance with medication/diet changeshad no f/u since 04/2019metformin had not taken (difficulty swallowing pills)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 cutting 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 operator consultreferral to opthalmologycontingency: Islet cell sammi/ GAD06/2020 7.7 LEONIDAS 1421 DIANE as per HTN04/2019 7.1,04/2019 TSH/T4 0.84, 1.17 Hyperlipidemia atorvastatin 40mg4/2 499770, 47, 18104/2019 195, 39, 173 Elevated liver enzymes advised to stay o ff of ETOH use06/2020 103/ 194 Alcohol abuse, daily use 24 oz of beer 2 -3 dailyEncouraged to quit smoking Treatment Notes Test Name Order Date FREE T4 & TSH PANEL 2020-11-24 Next Appt Details 4 Months Reason: Provider Name:Amairani Lane, 03-23 11:30:00 AM, [address] [facility], , [place], [address], Insurance Providers Payer Name Payer Address Payer Phone Insured Name Patient Relati onship to Insured Coverage Start Date Coverage End Date [facility] [employer] DEPT [address] [place] [phone] CHRISTIANO PEARSON self
[2021-01-03] MEDS ORDERED: STEG15TA PO (08:34)
[2021-01-03] MEDS ORDERED: ALOG25TA PO (08:34)
[2021-01-03] MEDS ORDERED: ATOR1TAB21 PO (08:34)
[2021-01-03] MEDS ORDERED: LISI20TA33 PO (08:34)
[2021-01-03] MEDS ORDERED: IBUP80TA PO (08:34)
[2021-01-03] MEDS ORDERED: diazePAM 5MG TABLET PO ONE (09:10)
--- NOTE | 2021-01-03 09:18 | REP ---
INDICATION: pain, cough. COMPARISON: None. TECHNIQUE: PA and lateral FINDINGS: The cardiomediastinal silhouette is within normal limits. The heart is not enlarged. In the right lower lobe there is a pleural based density which measures 3.3 cm. The lung vitale are otherwise clear. The pleural angles are sharp. The osseous structures are within normal limits. IMPRESSION: Right lower lobe pleural based density as described above. <Electronically signed by Zack Barroso > 01/03/21 0937
--- NOTE | 2021-01-03 09:18 | REP ---
INDICATION: pain, cough. COMPARISON: None. TECHNIQUE: AP and lateral FINDINGS: Mild degenerative changes are seen. There is no plain radiographic evidence of an acute fracture. Vertebral body height and alignment is within normal limits. IMPRESSION: Degenerative changes <Electronically signed by Zack Barroso > 01/03/21 0926
[2021-01-03 09:31] LABS: BASO # 0.1 10^3/uL (0.0-0.2); BASO % 0.9 % (0.0-1.0); EOS # 0.2 10^3/uL (0.0-0.5); EOS % 1.8 % (0.0-3.0); HEMOGLOBIN 14.5 g/dl (13.5-17.5); LYMPH # 2.4 10^3/uL (1.5-5.0); LYMPH % 22.4 % (24.0-44.0); MEAN CORPUSCULAR HEMOGLOBIN 30.5 pg (27.0-33.0); MEAN CORPUSCULAR VOLUME 92.4 fl (80.0-96.0); MONO # 0.5 10^3/uL (0.0-0.8); MONO % 4.4 % (2.0-8.0); NEUTROPHILS # 7.4 10^3/uL (1.5-8.5); NEUTROPHILS % 70.2 % (36.0-66.0); PLATELET COUNT, AUTOMATED 176 10^3/uL (150-450); RED BLOOD COUNT 4.76 10^6/uL (4.30-6.10); WHITE BLOOD COUNT 10.5 10^3/uL (4.0-10.0)
[2021-01-03 10:05] LABS: ALBUMIN 3.9 GM/DL (3.2-5.2); ALT/SGPT 141 U/L (12-78); BILIRUBIN,DIRECT 0.1 MG/DL (0.0-0.2); BILIRUBIN,TOTAL 0.4 MG/DL (0.2-1.0); CK-MB VALUE MASS 2.8 NG/ML (<3.6); CPK CREATINE PHOSPHOKINASE 176 U/L (39-308); LIPASE 220 U/L (73-393); MB/CK RELATIVE INDEX 1.59 (< OR =4); TOTAL PROTEIN 8.3 GM/DL (6.4-8.2); TROPONIN I < 0.02 NG/ML (< 0.10)
[2021-01-03 10:06] VITALS: BP 177/111
[2021-01-03] MEDS ORDERED: methylPREDNISolone 125MG 2ML VIAL IV ONE (10:10)
[2021-01-03] MEDS ORDERED: diphenhydrAMINE 50MG/ML VIAL (J1200) IV STA (10:10)
--- OUTSIDE RECORDS SUMMARY | 2021-01-03 10:40 | CCD ---
Author Author [facility] Organization [facility] Address Unknown Phone Unavailable Care Team Providers Care Postal Service Clerk Name Role Phone Maring, Marko PA Unavailable [...] Unavailable Unavailable Oswaldo Banuelos MD Unavailable Unavailable Oswalod Banuelos MD Unavailable Unavailable Oswaldo Banuelos MD [...] is protected by Article 27-F of the [facility] Public Health law. If you continue you may have access to information: Regarding HIV / AIDS; Provided by facilities licensed or operated by the [facility] Office of Mental Health; or Provided by the [facility] Office for People With Developmental Disabilities. If such information is present, then the following [facility] mandated warning applies: This information [...] law may result in a fine or correction sentence or both. A general authorization for the release of medical or other information is NOT sufficient authorization for further disc losure. Encounters Encounter Providers Location Date Indications Data Source(s ) Outpatient [address] [address] 11/24/2020 12:00:00 AM EDT eCW1 ([facility]) Outpatient Attender: Marko PHAN 11/02/19 03:48:23 PM EDT - 11/01/2020 04:12:59 PM EDT Doc[facility]Tap ([facility] ) [place] [address] [facility] [address] 07/14/2020 12:00:00 AM EDT eCW1 ([facility]) Unknown [address] [facility] [address] [address] 07/03/2020 12:00:00 AM EDT eCW1 ([facility]) Unknown [address] [facility] [address] 07/03/2020 12:00:00 AM EDT eCW1 ([facility]) Outpatient Attender: Marko PHAN 06/27/19 08:11:34 AM EDT - 06/26/2020 08:56:10 AM EDT [facility] ([facility] ) [place] [address] [facility] [address] 06/23/2020 12:00:00 AM EDT eCW1 ([facility]) Outpatient [address] [facility] [address] 06/06/2020 12:00:00 AM EDT eCW1 ([facility]) Unknown [address] [facility] [address] 06/06/2020 12:00:00 AM EDT eCW1 ([facility]) Outpatient Attender: Lara Banuelos MD 0 04/25/2020 11:08:33 AM EST - 04/25/2020 12:40:34 PM EST [facility] ([facility]) Unknown [address] [facility] [address] 12/26/2019 12:00:00 AM EDT eCW1 ([facility]) Immunizations Vaccine Date Status Description Data Source(s) COVID-19 VACCINE Pfizer 10/26/2020 12:00:00 AM EDT completed [facility] Vaccine Series Complete: YESThis Data wa s Submitted to [facility]. COVID-19 VACCINE Pfizer 10/06/2020 12:00:00 AM EDT completed [facility] Vaccine Series Complete: NOThis Data was Submitted to [facility]. Medications Medication Brand Name Start Date Product Form Dose Route Admi nistrative Instructions Pharmacy Instructions Status Indications Reaction Description Data Source(s) Steglatro 15 MG Steglatro 15 MG 07/02/2020 12:00:00 AM EDT 1.0 { tablet} active Steglatro 15 MG eCW1 ([facility]) alogliptin 25 MG Oral Tablet Alogliptin Benzoate 25 MG Alogliptin Benzoate 25 MG 07/02/2020 12:00:00 AM EDT 1.0 {tablet} activ e Alogliptin Benzoate 25 MG eCW1 ([facility]) alogliptin 25 MG Oral Tablet Alogliptin Benzoate 25 MG Alogliptin Benzoate 25 MG 07/02/2020 12:00:00 AM EDT 1.0 {tablet} activ e Alogliptin Benzoate 25 MG eCW1 ([facility]) Steglatro 15 MG Steglatro 15 MG 07/02/2020 12:00:00 AM EDT 1.0 { tablet} active Steglatro 15 MG eCW1 ([facility]) Augmentin 875-125 MG UNK 06/06/2020 12:00:00 AM EDT 1.0 {tablet } active Augmentin 875-125 MG eCW1 ([facility]) Augmentin 875-125 MG UNK 06/06/2020 12:00:00 AM EDT 1.0 {tablet } active Augmentin 875-125 MG eCW1 ([facility]) Augmentin 875-125 MG UNK 06/06/2020 12:00:00 AM EDT 1.0 {tablet } active Augmentin 875-125 MG eCW1 ([facility]) Insurance Providers Payer name Policy type / Coverage type Policy ID Covered libertarian ID Covered libertarian's relationship to kwan Policy Kwan Plan Information [employer]. [id number] Self [id number] RPR- Needs Payer Match [id number] Self [id number] RPR- Needs Payer Match [id number] Self [id number] [facility] [id number] DINA [id number] SP [id number] SELF PAY [id number] SP [id number] Problems, Conditions, and Diagnoses No Information Surgeries/Procedures Procedure Description Date Indications Data Source(s) ECG ROUTINE ECG W/LEAST 12 LDS W/I&R 06/06/2020 12:00: 00 AM EDT eCW1 ([facility]) Results ID Date Data Source Islet Cell Antibodies 11/24/2020 12:00:00 AM EDT eCW1 ([facility]) Name Value Range Interpretation Code Description Data Danielle rce(s) Supporting Document(s) Negative Neg:<1:1 ISLET CELL ANTIBODIES eCW 1 ([facility]) ID Date Data Source [id number] AUTOANTIBODY 11/24/2020 12:00:00 AM EDT eCW1 ([facility]) Name Value Range Interpretation Code Description Data Danielle rce(s) Supporting Document(s) <5.0 0.0-5.0 [id number] AUTOANTIBODY eCW1 ([facility]) ID Date Data Source C-PEPTIDE 11/24/2020 12:00:00 AM EDT eCW1 ([facility]) Name Value Range Interpretation Code Description Data Danielle rce(s) Supporting Document(s) 4.9 1.1-4.4 C-PEPTIDE eCW1 ([facility]) ID Date Data Source [id number] 11/24/2020 12:00:00 AM EDT eCW1 ([facility]) Name Value Range Interpretation Code Description Data Danielle rce(s) Supporting Document(s) Hemoglobin A1c/Hemoglobin.total in Blood 7.1 HEMOGLOBIN A1c eCW1 ([facility]) ID Date Data Source [id number] 11/24/2020 12:00:00 AM EDT eCW1 ([facility]) Name Value Range Interpretation Code Description Data Danielle rce(s) Supporting Document(s) Microalbumin/Creatinine [Mass Ratio] in Urine 34.4 CREATININE, URINE eCW1 ([facility]) Albumin/Creatinine [Mass Ratio] in Urine 41.7 MALB URINE SIEMENS eCW1 ([facility]) Microalbumin/Creatinine [Ratio] in Urine 121.2 0.0-30.0 LEONIDAS/CREAT RATIO eCW1 ([facility]) ID Date Data Source TSH 11/24/2020 12:00:00 AM EDT eCW1 ([facility]) Name Value Range Interpretation Code Description Data Danielle rce(s) Supporting Document(s) 0.587 0.358-3.740 THYROID STIMULATING HORM ONE eCW1 ([facility]) ID Date Data Source LIPID PANEL (CARDIAC RISK) 11/24/2020 12:00:00 AM EDT eCW1 ( [facility]) Name Value Range Interpretation Code Description Data Danielle rce(s) Supporting Document(s) Triglyceride [Mass/volume] in Serum or Plasma by calculation 97 <150 TRIGLYCERIDES LEVEL eCW1 ([facility]) Cholesterol [Moles/volume] in Serum or Plasma 279 <200 CHOLESTEROL LEVEL eC ([facility]) Cholesterol in LDL [Mass/volume] in Serum or Plasma by calculation 213 <100 LDL CHOLESTEROL eCW1 ([facility]) Cholesterol in HDL [Moles/volume] in Serum or Plasma 47 >40 HDL CHOLESTEROL eCW1 ([facility]) 232 NON-HDL-C eCW1 ([facility]) 5.936 <5 CHOLESTEROL RISK RATIO eCW ([facility]) ID Date Data Source FREE T4 11/24/2020 12:00:00 AM EDT eCW1 ([facility]) Name Value Range Interpretation Code Description Data Danielle rce(s) Supporting Document(s) 1.00 0.76-1.46 FREE T4 eCW ([facility]) ID Date Data Source Comprehensive Metabolic Profile (CMP) 11/24/2020 12:00:00 AM EDT eCW1 ([facility]) Name Value Range Interpretation Code Description Data Danielle rce(s) Supporting Document(s) 104 70-100 GLUCOSE, FASTING eCW1 ([facility]) 9 7-18 BLOOD UREA NITROGEN eCW1 ([facility]) 0.87 0.70-1.30 CREATININE FOR GFR eCW1 ([facility]) > 60.0 >60 GLOMERULAR FILTRATION RATE eCW 1 ([facility]) 104 98-107 CHLORIDE LEVEL eCW1 ([facility]) 4.5 3.5-5.1 POTASSIUM SERUM eCW1 ([facility]) 28 21-32 CARBON DIOXIDE LEVEL eCW1 ([facility]) 137 136-145 SODIUM LEVEL eCW1 ([facility]) 83 7-37 AST/SGOT eCW1 ([facility]) 9.5 8.5-10.1 CALCIUM LEVEL eCW1 ([facility]) 217 12-78 ALT/SGPT eCW1 ([facility]) 0.3 0.2-1.0 BILIRUBIN,TOTAL eCW1 ([facility]) 74 45-117 ALKALINE PHOSPHATASE eCW1 ([facility]) 8.2 6.4-8.2 TOTAL PROTEIN eCW1 ([facility]) 4.0 3.2-5.2 ALBUMIN eCW1 ([facility]) 1.0 ALBUMIN/GLOBULIN RATIO eCW1 ([facility]) ID Date Data Source CBC with Differential 11/24/2020 12:00:00 AM EDT eCW1 ([facility]) Name Value Range Interpretation Code Description Data Danielle rce(s) Supporting Document(s) 6.3 4.0-10.0 WHITE BLOOD COUNT eCW1 ([facility]) 43.6 42.0-52.0 HEMATOCRIT eCW1 ([facility]) 14.2 13.5-17.5 HEMOGLOBIN eCW1 ([facility]) 4.77 4.30-6.10 RED BLOOD COUNT eCW1 ([facility]) 91.4 80.0-96.0 MEAN CORPUSCULAR VOLUME e CW1 ([facility]) 29.8 27.0-33.0 MEAN CORPUSCULAR HEMOGLOB IN eCW1 ([facility]) 32.6 32.0-36.5 MEAN CORPUSCULAR HGB CONC eCW1 ([facility]) 13.2 11.5-14.5 RED CELL DISTRIBUTION WID TH eCW1 ([facility]) 212 150-450 PLATELET COUNT, AUTOMATED eCW1 ([facility]) 40.7 24.0-44.0 LYMPH % eCW1 ([facility]) 47.9 36.0-66.0 NEUTROPHILS % eCW1 ([facility]) 6.8 2.0-8.0 MONO % eCW1 ([facility]) 3.0 1.5-8.5 NEUTROPHILS # eCW1 ([facility]) 1.3 0.0-1.0 BASO % eCW1 ([facility]) 2.6 1.5-5.0 LYMPH # eCW1 ([facility]) 2.8 0.0-3.0 EOS % eCW1 ([facility]) 0.1 0.0-0.2 BASO # eCW1 ([facility]) 0.4 0.0-0.8 MONO # eCW1 ([facility]) 0.2 0.0-0.5 EOS # eCW1 ([facility]) Procedure Social History Code Duration Value Status Description Data Source(s ) Smoking 11/24/2020 12:00:00 AM EDT Current Smoker completed Curre nt Smoker eCW1 ([facility]) Smoking 07/14/2020 12:00:00 AM EDT Current Smoker completed Curre nt Smoker eCW1 ([facility]) Smoking 07/02/2020 12:00:00 AM EDT Current Smoker completed Curre nt Smoker eCW1 ([facility]) Smoking 07/02/2020 12:00:00 AM EDT Current Smoker completed Curre nt Smoker eCW1 ([facility]) Smoking 06/06/2020 12:00:00 AM EDT Current Smoker completed Curre nt Smoker eCW1 ([facility]) Smoking 06/06/2020 12:00:00 AM EDT Current Smoker completed Curre nt Smoker eCW1 ([facility]) Smoking 06/06/2020 12:00:00 AM EDT Current Smoker completed Curre nt Smoker eCW1 ([facility]) Vital Signs ID Date Data Source UNK Name Value Range Interpretation Code Description Data Source(s) Body weight 223.8 [lb_av] 223.8 [lb_av] eCW1 ([facility]) Body weight 101.52 kg 101.52 kg eCW1 ([facility]) Body height 67 [in_i] 67 [in_i] eCW1 ([facility]) Body mass index (BMI) [Ratio] 35.05 kg/m2 35.05 kg/m2 eCW1 ([facility]) Heart rate 103 /min 103 /min eCW1 ([facility]) Respiratory rate 18 /min 18 /min eCW1 ([facility]) Body temperature 97.1 [degF] 97.1 [degF] eCW1 ( [facility]) Systolic blood pressure 130 mm[Hg] 130 mm[Hg] e CW1 ([facility]) Diastolic blood pressure 78 mm[Hg] 78 mm[Hg] eCW1 ([facility]) Body weight 237 [lb_av] 237 [lb_av] eCW1 ([facility]) Body height 67 [in_i] 67 [in_i] eCW1 ([facility]) Body mass index (BMI) [Ratio] 37.12 kg/m2 37.12 kg/m2 eCW1 ([facility]) Heart rate 114 /min 114 /min eCW1 ([facility]) Respiratory rate 18 /min 18 /min eCW1 ([facility]) Body temperature 97.5 [degF] 97.5 [degF] eCW1 ( [facility]) Systolic blood pressure 132 mm[Hg] 132 mm[Hg] e CW1 ([facility]) Diastolic blood pressure 80 mm[Hg] 80 mm[Hg] eCW1 ([facility]) Body weight 245 [lb_av] 245 [lb_av] eCW1 ([facility]) Body height 67 [in_i] 67 [in_i] eCW1 ([facility]) Body mass index (BMI) [Ratio] 38.37 kg/m2 38.37 kg/m2 eCW1 ([facility]) Heart rate 125 /min 125 /min eCW1 ([facility]) Respiratory rate 18 /min 18 /min eCW1 ([facility]) Body temperature 97.3 [degF] 97.3 [degF] eCW1 ( [facility]) Systolic blood pressure 136 mm[Hg] 136 mm[Hg] e CW1 ([facility]) Diastolic blood pressure 82 mm[Hg] 82 mm[Hg] eCW1 ([facility]) Patient Treatment Plan of Care Planned Activity Planned Date Details Description Data Source (s) alogliptin 25 MG Oral Tablet 07/02/2020 12:00:00 AM EDT eCW1 ([facility]) Steglatro 15 MG 07/02/2020 12:00:00 AM EDT eCW1 ([facility]) alogliptin 25 MG Oral Tablet 07/02/2020 12:00:00 AM EDT eCW1 ([facility]) Steglatro 15 MG 07/02/2020 12:00:00 AM EDT eCW1 ([facility]) Augmentin 875-125 MG 06/06/2020 12:00:00 AM EDT eCW1 ([facility]) Augmentin 875-125 MG 06/06/2020 12:00:00 AM EDT eCW1 ([facility]) Augmentin 875-125 MG 06/06/2020 12:00:00 AM EDT eCW1 ([facility])
[2021-01-03] MEDS ORDERED: ISOVUE-370 76% 100ML VIAL As Ordered ONE (11:11)
--- NOTE | 2021-01-03 11:41 | REP ---
INDICATION: CP r/o PE COMPARISON: None. TECHNIQUE: CT angiography of the chest attention pulmonary arteries after the intravenous administration of 75 cc of Isovue 370. FINDINGS: There is excellent visualization of the pulmonary arterial vasculature. No focal filling defects are present that would be considered consistent with acute pulmonary emboli. The thoracic aorta is grossly within normal limits. There is no mediastinal or hilar adenopathy. There are no pleural or pericardial effusions. The imaged osseous structures are within normal limits. The imaged upper abdomen is within normal limits. Evaluation of the lung vitale shows early emphysematous changes particularly in the lung apical regions where tiny bulla and small pleural blebs are evident.. There is evidence of scattered subsegmental atelectatic change particularly in the lung bases. There is a subtle increase in the interstitial markings without focality. IMPRESSION: 1. There is no evidence of a pulmonary embolism. 2. Early emphysematous changes as described above. 3. Likely scattered areas of subsegmental atelectasis. Early interstitial lung disease cannot be ruled out. <Electronically signed by Zack Barroso > 01/03/21 [id number]
[2021-01-03] MEDS ORDERED: KETOROLAC 30 MG/ML 1ML VIAL IV ONE (11:45)
[2021-01-03] MEDS ORDERED: PERCOCET 5MG/325MG TAB PO ONE (13:10)
[2021-01-03] MEDS ORDERED: CYCL-707 PO (13:51)
[2021-01-03 14:14] VITALS: BP 164/98
--- NOTE | 2021-01-03 18:20 | ECGEPIP ---
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
--- NOTE | 2021-01-04 06:48 | ED PDOC ---
Post-Departure Follow-Up radiology report faxed to Marylin Garza MD Jan 04, 2021 06:48
== END 2021-01-03 14:16 | disposition home or self-care (01) ==
LOC: M ED 08:19
DX: I10 Essential (primary) hypertension (principal); M62.830 Muscle spasm of back; E11.9 Type 2 diabetes mellitus without complications; E78.5 Hyperlipidemia, unspecified; K76.0 Fatty (change of) liver, not elsewhere classified; Z91.041 Radiographic dye allergy status; Z79.899 Other long term (current) drug therapy; Z79.84 Long term (current) use of oral hypoglycemic drugs; F17.210 Nicotine dependence, cigarettes, uncomplicated
CPT/HCPCS: 71046; 71275; 72072; 80047; 80076; 82550; 82553; 83690; 85025; 93005; 96374; 96375; 99284; J1200; J1885; J2930; Q9967

== ENCOUNTER 2022-09-07 19:45 | Emergency (ER) | payer OTHER ==
[~2022-09-07] VITALS: Ht 172.7 cm; Wt 101.8 kg
[~2022-09-07 19:45] MED LIST changes: +ALOG25TA PO; +ATOR1TAB21 PO; +CYCL-707 PO; +IBUP80TA PO; +LISI20TA33 PO; +STEG15TA PO
[2022-09-07 20:46] LABS: VENOUS BASE EXCESS -2.1 (-2.0-2.0); VENOUS HCO3 20.8 MMOL/L (23.0-27.0); VENOUS O2 SATURATION 97.8 % (60.0-80.0); VENOUS PARTIAL PRESSURE CO2 30.4 mmHg (38.0-50.0); VENOUS PARTIAL PRESSURE O2 100.6 mmHg (30.0-50.0); VENOUS PH 7.453 UNITS (7.330-7.430); VENOUS STANDARD HCO3 22.8 MMOL/L; VENOUS TOTAL CO2 21.7 MMOL/L (24.0-28.0)
[2022-09-07 21:18] LABS: BASO # 0.1 10^3/uL (0.0-0.2); CK-MB VALUE MASS 3.5 NG/ML (<3.6); EOS # 0.1 10^3/uL (0.0-0.5); EOS % 1.5 % (0.0-3.0); HEMATOCRIT 37.5 % (42.0-52.0); HEMOGLOBIN 12.3 g/dl (13.5-17.5); LYMPH # 3.4 10^3/uL (1.5-5.0); LYMPH % 43.8 % (24.0-44.0); MEAN CORPUSCULAR HEMOGLOBIN 29.9 pg (27.0-33.0); MEAN CORPUSCULAR HGB CONC 32.8 g/dl (32.0-36.5); MONO # 0.6 10^3/uL (0.0-0.8); MONO % 7.4 % (2.0-8.0); NEUTROPHILS # 3.6 10^3/uL (1.5-8.5); NEUTROPHILS % 46.2 % (36.0-66.0); PLATELET COUNT, AUTOMATED 179 10^3/uL (150-450); RED BLOOD COUNT 4.12 10^6/uL (4.30-6.10); WHITE BLOOD COUNT 7.9 10^3/uL (4.0-10.0)
[2022-09-07 21:20] LABS: CPK CREATINE PHOSPHOKINASE 223 U/L (46-171); MB/CK RELATIVE INDEX 1.56 (< OR =4)
[2022-09-07 21:21] LABS: ALBUMIN 3.6 G/DL (3.2-5.2); ALKALINE PHOSPHATASE 73 U/L (46-116); ALT/SGPT 38 U/L (7.0-40); AST/SGOT 49 U/L (<34); BILIRUBIN,DIRECT 0.3 MG/DL (<0.4); BILIRUBIN,TOTAL 0.8 MG/DL (0.3-1.2); BLOOD UREA NITROGEN 7 MG/DL (9-23); CALCIUM LEVEL 8.4 MG/DL (8.5-10.1); CARBON DIOXIDE LEVEL 23 MMOL/L (20-31); CHLORIDE LEVEL 105 MMOL/L (98-107); CREATININE FOR GFR 0.67 MG/DL (0.70-1.30); GLOMERULAR FILTRATION RATE > 60.0 (>60); GLUCOSE, FASTING 168 MG/DL (60-100); POTASSIUM SERUM 3.9 MMOL/L (3.5-5.1); SODIUM LEVEL 135 MMOL/L (136-145)
[2022-09-07 21:23] LABS: THYROID STIMULATING HORMONE 1.459 uIU/ML (0.55-4.78)
[2022-09-07 21:27] LABS: PROCALCITONIN 0.05 ng/ml
[2022-09-07 21:39] LABS: RSV AMPLIFICATION NEGATIVE (NEGATIVE)
[2022-09-07] MEDS ORDERED: diphenhydrAMINE 50MG/ML VIAL IV STA (21:44)
[2022-09-07] MEDS ORDERED: methylPREDNISolone 125MG 2ML VIAL IV ONE (21:45)
[2022-09-07] MEDS ORDERED: FAMOTIDINE 20MG/2ML VIAL IVP ONE (21:45)
[2022-09-07 22:27] LABS: CK-MB VALUE MASS 4.1 NG/ML (<3.6)
[2022-09-07 22:28] LABS: MB/CK RELATIVE INDEX 1.94 (< OR =4)
[2022-09-07] MEDS ORDERED: ISOVUE-370 76% 100ML VIAL As Ordered ONE (22:32)
[2022-09-07] MEDS ORDERED: hydrALAZINE 20MG/ML 1ML VIAL IV STA (23:16)
[2022-09-07] MEDS ORDERED: NS 1,000 ML IV ONE (23:20)
[2022-09-07 23:54] LABS: APPEARANCE, URINE CLEAR (CLEAR); BACTERIA, URINE AUTO NEGATIVE (NEGATIVE); BILIRUBIN, URINE AUTO NEGATIVE (NEGATIVE); BLOOD, URINE BLOOD NEGATIVE (NEGATIVE); COLOR, URINE STRAW (YELLOW); GLUCOSE, URINE (UA) AUTO NEGATIVE (NEGATIVE); KETONE, URINE AUTO NEGATIVE (NEGATIVE); LEUKOCYTE ESTERASE, URINE AUTO NEGATIVE (NEGATIVE); NITRITE, URINE AUTO NEGATIVE (NEGATIVE); PROTEIN, URINE AUTO 1+ mg/dL (NEGATIVE); RBC, URINE AUTO 0 /HPF (0-3); SPECIFIC GRAVITY URINE AUTO 1.003 (1.002-1.035); SQUAMOUS EPITHELIAL CELL UR AU 0 /HPF (0-6); UROBILINOGEN, URINE AUTO 0.2 mg/dL (0.0-2.0); WBC, URINE AUTO 0 /HPF (0-3)
[2022-09-08 00:37] VITALS: BP 160/101; TEMP 98; O2SAT 97
== END 2022-09-08 00:50 | disposition left against medical advice (07) ==
LOC: M ED 19:45
DX: I16.0 Hypertensive urgency (principal); F41.9 Anxiety disorder, unspecified; R06.00 Dyspnea, unspecified; E11.9 Type 2 diabetes mellitus without complications; F17.200 Nicotine dependence, unspecified, uncomplicated; Z91.041 Radiographic dye allergy status
CPT/HCPCS: 71045; 71275; 80048; 80076; 81001; 82010; 82550; 82553; 82803; 83605; 83880; 84145; 84443; 85025; 85379; 87040; 87631; 93005; 93041; 94760; 96374; 96375; 99285; J0360; J1200; J2930; Q9967; S0028

== ENCOUNTER 2022-09-19 08:27 | Inpatient (IN) | payer OTHER ==
[~2022-09-19] VITALS: Ht 172.7 cm; Wt 102.7 kg
[~2022-09-19 08:27] MED LIST changes: +AMOX600S51 PO; -AUGMSUS PO
[2022-09-19] MEDS: MULTIVITAMINS/MINERALS THERAP 1 TAB PO SCH (09:00)
[2022-09-19 09:15] LABS: BASO # 0.1 10^3/uL (0.0-0.2); BASO % 1.2 % (0.0-1.0); EOS # 0.1 10^3/uL (0.0-0.5); EOS % 1.7 % (0.0-3.0); HEMATOCRIT 39.3 % (42.0-52.0); HEMOGLOBIN 12.5 g/dl (13.5-17.5); LYMPH # 2.2 10^3/uL (1.5-5.0); LYMPH % 30.5 % (24.0-44.0); MEAN CORPUSCULAR HEMOGLOBIN 28.9 pg (27.0-33.0); MEAN CORPUSCULAR HGB CONC 31.8 g/dl (32.0-36.5); MONO # 0.5 10^3/uL (0.0-0.8); MONO % 6.6 % (2.0-8.0); NEUTROPHILS # 4.3 10^3/uL (1.5-8.5); NEUTROPHILS % 59.7 % (36.0-66.0); PLATELET COUNT, AUTOMATED 191 10^3/uL (150-450); RED BLOOD COUNT 4.32 10^6/uL (4.30-6.10); WHITE BLOOD COUNT 7.2 10^3/uL (4.0-10.0)
[2022-09-19 09:25] LABS: ABG BASE EXCESS -3.5 (-2.0-2.0); ABG HCO3 19.3 MMOL/L (22.0-26.0); ABG O2 SATURATION 96.8 % (95.0-99.0); ABG PARTIAL PRESSURE CO2 28.6 mmHg (35.0-45.0); ABG PARTIAL PRESSURE O2 85.7 mmHg (75.0-100.0); ABG STANDARD HCO3 21.5 MMOL/L. (22.0-26.0); ABG TOTAL CO2 20.1 MMOL/L (22.0-29.0); ABG pH (ARTERIAL) 7.446 UNITS (7.350-7.450)
[2022-09-19 09:25] LABS: INR 1.13; PROTHROMBIN TIME 14.7 SECONDS (12.5-14.5)
[2022-09-19 09:26] LABS: PARTIAL THROMBOPLASTIN TIME 27.5 SECONDS (24.8-34.2)
[2022-09-19 09:48] LABS: CK-MB VALUE MASS 2.4 NG/ML (<3.6); LIPASE 64 U/L (12-53)
[2022-09-19 09:52] LABS: FREE T4 1.11 NG/DL (0.89-1.76); THYROID STIMULATING HORMONE 1.146 uIU/ML (0.55-4.78)
[2022-09-19 09:55] LABS: ALBUMIN 3.4 G/DL (3.2-5.2); ALKALINE PHOSPHATASE 74 U/L (46-116); ALT/SGPT 35 U/L (7.0-40); AST/SGOT 52 U/L (<34); BILIRUBIN,DIRECT 0.3 MG/DL (<0.4); BILIRUBIN,TOTAL 0.8 MG/DL (0.3-1.2); BLOOD UREA NITROGEN < 5 MG/DL (9-23); CALCIUM LEVEL 8.2 MG/DL (8.5-10.1); CARBON DIOXIDE LEVEL 22 MMOL/L (20-31); CHLORIDE LEVEL 105 MMOL/L (98-107); CPK CREATINE PHOSPHOKINASE 158 U/L (46-171); CREATININE FOR GFR 0.68 MG/DL (0.70-1.30); GLOMERULAR FILTRATION RATE > 60.0 (>60); GLUCOSE, FASTING 194 MG/DL (60-100); MB/CK RELATIVE INDEX 1.51 (< OR =4); POTASSIUM SERUM 4.3 MMOL/L (3.5-5.1); SODIUM LEVEL 137 MMOL/L (136-145)
[2022-09-19 10:11] LABS: RSV AMPLIFICATION NEGATIVE (NEGATIVE)
[2022-09-19] MEDS ORDERED: diphenhydrAMINE 50MG/ML VIAL IV STA (10:21)
[2022-09-19] MEDS ORDERED: FAMOTIDINE 20MG/2ML VIAL IVP ONE (10:25)
[2022-09-19] MEDS ORDERED: methylPREDNISolone 125MG 2ML VIAL IV ONE (10:25)
[2022-09-19] MEDS ORDERED: FUROSEMIDE 20MG/2ML VIAL IV ONE (10:50)
[2022-09-19] MEDS ORDERED: ISOVUE-370 76% 100ML VIAL As Ordered ONE (11:05)
[2022-09-19 12:02] LABS: CK-MB VALUE MASS 1.9 NG/ML (<3.6); MB/CK RELATIVE INDEX 1.25 (< OR =4)
[2022-09-19] MEDS ORDERED: LORazepam 2 MG/ML 1ML VIAL IV STA (12:59)
[2022-09-19] MEDS ORDERED: LORazepam 2 MG TAB PO PRN (13:00)
[2022-09-19] MEDS ORDERED: MED REC IN PROGRESS XX SCH (13:05)
[2022-09-19] MEDS ORDERED: HOME MED LIST COMPLETE! XX SCH (13:45)
[2022-09-19] MEDS ORDERED: GLUCAGON INJ 1MG VIAL SC PRN (13:50)
[2022-09-19] MEDS ORDERED: MOM 30ML SUSPENSION UDC PO PRN (13:50)
[2022-09-19] MEDS ORDERED: GLUCOSE 4GM CHEW TABLET PO PRN (13:50)
[2022-09-19] MEDS ORDERED: ACETAMINOPHEN TAB 650MG DOSE (2X325MG) PO PRN (13:50)
[2022-09-19] MEDS ORDERED: DEXTROSE 50% 50ML SYRINGE IV PRN (13:50)
[2022-09-19] MEDS ORDERED: NICOTINE POLACRILEX 2 MG GUM PO PRN (14:05)
[2022-09-19 15:21] LABS: INR 1.12; PROTHROMBIN TIME 14.6 SECONDS (12.5-14.5)
[2022-09-19 16:00] VITALS: BP 139/86; TEMP 97; O2SAT 92
[2022-09-19] MEDS: GABAPENTIN 300 MG CAP PO SCH ×2 (16:29→21:23)
[2022-09-19] MEDS: FUROSEMIDE 40MG/4ML VIAL IV SCH (16:29)
[2022-09-19 17:49] VITALS: BP 169/94
[2022-09-19] MEDS: INSULIN LISPRO (NovoLOG) PER UNIT SC SCH ×2 (17:59→21:24)
[2022-09-19 20:00] VITALS: BP 134/80; TEMP 97; O2SAT 95
[2022-09-19] MEDS: ENOXAPARIN 40MG/0.4ML SYRINGE (J1650 PER 10MG) SC SCH (21:23)
[2022-09-19] MEDS: THIAMINE 100 MG TAB PO SCH (21:23)
[2022-09-19 23:34] VITALS: BP 120/78; TEMP 97.3; O2SAT 93
[2022-09-20] VITALS (7 sets, daily range): BP systolic 108–140; BP diastolic 74–84; TEMP 96.9–97.9; O2SAT 96–99
[2022-09-20 05:32] LABS: HEMATOCRIT 39.7 % (42.0-52.0); HEMOGLOBIN 12.5 g/dl (13.5-17.5); MEAN CORPUSCULAR HEMOGLOBIN 29.1 pg (27.0-33.0); MEAN CORPUSCULAR HGB CONC 31.5 g/dl (32.0-36.5); MEAN CORPUSCULAR VOLUME 92.5 fl (80.0-96.0); PLATELET COUNT, AUTOMATED 206 10^3/uL (150-450); RED BLOOD COUNT 4.29 10^6/uL (4.30-6.10); WHITE BLOOD COUNT 9.6 10^3/uL (4.0-10.0)
[2022-09-20 05:36] LABS: HEMOGLOBIN A1c 8.2 % (4.0-6.0)
[2022-09-20 05:58] LABS: ALBUMIN 3.6 G/DL (3.2-5.2); ALKALINE PHOSPHATASE 78 U/L (46-116); ALT/SGPT 35 U/L (7.0-40); AST/SGOT 9 U/L (<34); BILIRUBIN,DIRECT 0.5 MG/DL (<0.4); BILIRUBIN,TOTAL 1.4 MG/DL (0.3-1.2); BLOOD UREA NITROGEN 12 MG/DL (9-23); CALCIUM LEVEL 8.7 MG/DL (8.5-10.1); CARBON DIOXIDE LEVEL 20 MMOL/L (20-31); CHLORIDE LEVEL 104 MMOL/L (98-107); CHOLESTEROL LEVEL 213 MG/DL (<200); CHOLESTEROL RISK RATIO 5.15 (<5); CREATININE FOR GFR 0.67 MG/DL (0.70-1.30); GLOMERULAR FILTRATION RATE > 60.0 (>60); GLUCOSE, FASTING 182 MG/DL (60-100); HDL CHOLESTEROL 41.3 MG/DL (>40); LDL CHOLESTEROL 149.3 MG/DL (<100); MAGNESIUM LEVEL 2.3 MG/DL (1.8-2.4); NON-HDL-C 171.7 MG/DL; POTASSIUM SERUM 3.7 MMOL/L (3.5-5.1); SODIUM LEVEL 136 MMOL/L (136-145); TOTAL PROTEIN 7.5 G/DL (5.7-8.2); TRIGLYCERIDES LEVEL 112 MG/DL (<150)
[2022-09-20] MEDS: MULTIVITAMINS/MINERALS THERAP 1 TAB PO SCH (08:12)
[2022-09-20] MEDS: INSULIN LISPRO (NovoLOG) PER UNIT SC SCH ×4 (08:12→20:45)
[2022-09-20] MEDS: FOLIC ACID 1MG TAB PO SCH (08:12)
[2022-09-20] MEDS: FUROSEMIDE 40MG/4ML VIAL IV SCH (08:12)
[2022-09-20] MEDS: GABAPENTIN 300 MG CAP PO SCH ×3 (08:12→20:43)
[2022-09-20] MEDS: THIAMINE 100 MG TAB PO SCH ×2 (08:13→20:44)
[2022-09-20] MEDS ORDERED: acetaZOLAMIDE 250MG TAB PO SCH (09:00)
[2022-09-20] MEDS: CARVedilol 6.25 MG TAB PO SCH ×2 (12:51→20:44)
[2022-09-20] MEDS: metFORMIN (GLUCOPHAGE) 500MG TAB PO SCH ×2 (12:51→18:25)
[2022-09-20] MEDS: SPIRONOLACTONE 50 MG TAB PO SCH (12:54)
[2022-09-20] MEDS: ENOXAPARIN 40MG/0.4ML SYRINGE (J1650 PER 10MG) SC SCH (20:43)
[2022-09-20] MEDS ORDERED: ATORVASTATIN 20 MG TAB PO SCH (21:00)
[2022-09-21 03:47] VITALS: BP 112/77; TEMP 97; O2SAT 97
[2022-09-21 06:04] LABS: HEMATOCRIT 38.1 % (42.0-52.0); HEMOGLOBIN 12.2 g/dl (13.5-17.5); MEAN CORPUSCULAR HEMOGLOBIN 29.6 pg (27.0-33.0); MEAN CORPUSCULAR VOLUME 92.5 fl (80.0-96.0); PLATELET COUNT, AUTOMATED 179 10^3/uL (150-450); RED BLOOD COUNT 4.12 10^6/uL (4.30-6.10); WHITE BLOOD COUNT 9.8 10^3/uL (4.0-10.0)
[2022-09-21 06:43] LABS: ALBUMIN 3.4 G/DL (3.2-5.2); ALKALINE PHOSPHATASE 69 U/L (46-116); ALT/SGPT 47 U/L (7.0-40); AST/SGOT 47 U/L (<34); BILIRUBIN,DIRECT 0.3 MG/DL (<0.4); BILIRUBIN,TOTAL 0.9 MG/DL (0.3-1.2); BLOOD UREA NITROGEN 20 MG/DL (9-23); CARBON DIOXIDE LEVEL 23 MMOL/L (20-31); CHLORIDE LEVEL 103 MMOL/L (98-107); GLOMERULAR FILTRATION RATE > 60.0 (>60); GLUCOSE, FASTING 154 MG/DL (60-100); MAGNESIUM LEVEL 2.1 MG/DL (1.8-2.4); POTASSIUM SERUM 3.8 MMOL/L (3.5-5.1); SODIUM LEVEL 135 MMOL/L (136-145); TOTAL PROTEIN 6.8 G/DL (5.7-8.2)
[2022-09-21 07:38] VITALS: BP 114/77; TEMP 96.8; O2SAT 98
[2022-09-21] MEDS: INSULIN LISPRO (NovoLOG) PER UNIT SC SCH ×2 (08:21→12:00)
[2022-09-21] MEDS: SPIRONOLACTONE 50 MG TAB PO SCH (08:22)
[2022-09-21] MEDS: CARVedilol 6.25 MG TAB PO SCH (08:22)
[2022-09-21] MEDS: GABAPENTIN 300 MG CAP PO SCH (08:22)
[2022-09-21] MEDS: metFORMIN (GLUCOPHAGE) 500MG TAB PO SCH (08:22)
[2022-09-21] MEDS: MULTIVITAMINS/MINERALS THERAP 1 TAB PO SCH (08:22)
[2022-09-21] MEDS: THIAMINE 100 MG TAB PO SCH (08:22)
[2022-09-21] MEDS: FOLIC ACID 1MG TAB PO SCH (08:23)
[2022-09-21] MEDS ORDERED: FARX1TAB3 PO (08:32)
[2022-09-21] MEDS ORDERED: FUROSEMIDE 20 MG TAB PO SCH (09:00)
[2022-09-21] MEDS ORDERED: METF500T13 PO ×2 (11:56→12:23)
[2022-09-21] MEDS ORDERED: FURO20TA2 PO ×2 (11:56→12:23)
[2022-09-21] MEDS ORDERED: NICO2GUM PO (11:56)
[2022-09-21] MEDS ORDERED: NALT50TA4 PO (11:56)
[2022-09-21] MEDS ORDERED: ATOR1TAB21 PO ×2 (11:56→12:23)
[2022-09-21] MEDS ORDERED: VITMTA PO ×2 (11:56→12:23)
[2022-09-21] MEDS ORDERED: GABA-282 PO (11:56)
[2022-09-21] MEDS ORDERED: ALDA50TA2 PO ×2 (11:56→12:23)
[2022-09-21] MEDS ORDERED: METO1TAB32 PO (11:57)
[2022-09-21] MEDS ORDERED: LISI5TAB11 PO (11:57)
[2022-09-21] MEDS ORDERED: ATOR40TA75 PO (12:23)
[2022-09-21] MEDS ORDERED: ALCOPAD25 TOP (13:07)
[2022-09-21] MEDS ORDERED: BLOOKIT21 XX (13:07)
[2022-09-21] MEDS ORDERED: LANC30MI XX (13:07)
[2022-09-21] MEDS ORDERED: GLUC1TES2 XX (13:07)
== END 2022-09-21 13:30 | disposition home or self-care (01) | DRG 194 ==
LOC: M ED 08:27 → M ED INP 13:50 → ENRESERV 15:05 → M PCU 16:12
PROVIDERS: ADMIT Student in an Organized Health Care Education/Training Program; ATTEND Student in an Organized Health Care Education/Training Program
PROC: B246ZZZ Ultrasonography of Right and Left Heart (ICD-10-PCS; principal; 2022-09-20)
DX: I11.0 Hypertensive heart disease with heart failure (principal); E11.9 Type 2 diabetes mellitus without complications; F10.231 Alcohol dependence with withdrawal delirium; F17.210 Nicotine dependence, cigarettes, uncomplicated; J43.9 Emphysema, unspecified; K70.31 Alcoholic cirrhosis of liver with ascites; I50.23 Acute on chronic systolic (congestive) heart failure; R00.0 Tachycardia, unspecified; S22.41XD Multiple fractures of ribs, right side, subsequent encounter for fracture with routine healing; Z91.013 Allergy to seafood; Z91.041 Radiographic dye allergy status; Z20.822 Contact with and (suspected) exposure to COVID-19; E78.5 Hyperlipidemia, unspecified; Z71.6 Tobacco abuse counseling; I34.0 Nonrheumatic mitral (valve) insufficiency

== ENCOUNTER 2022-12-23 01:00 | Emergency (ER) | payer OTHER ==
[~2022-12-23] VITALS: Ht 172.7 cm; Wt 92.9 kg
[2022-12-23 01:00] VITALS: BP 141/83; TEMP 96.8; O2SAT 98
[~2022-12-23 01:00] MED LIST changes: +ALCOPAD25 TOP; +ALDA50TA2 PO; +ATOR40TA75 PO; +BLOOKIT21 XX; +FARX1TAB3 PO; +FURO20TA2 PO; +GABA-282 PO; +GLUC1TES2 XX; +LANC30MI XX; +LISI5TAB11 PO; +METF500T13 PO; +METO1TAB32 PO; +NALT50TA4 PO; +NICO2GUM PO; +VITMTA PO
[2022-12-23] MEDS ORDERED: AUGMENTIN 875 MG TAB PO ONE (02:40)
[2022-12-23] MEDS ORDERED: KETOROLAC 60MG 2ML VIAL IM ONE (02:40)
[2022-12-23] MEDS ORDERED: KETO10TAB PO (02:42)
[2022-12-23] MEDS ORDERED: AMOX875T2 PO (02:42)
== END 2022-12-23 02:58 | disposition home or self-care (01) ==
LOC: M ED 01:00
DX: K02.9 Dental caries, unspecified (principal); I10 Essential (primary) hypertension; E78.5 Hyperlipidemia, unspecified; E11.9 Type 2 diabetes mellitus without complications; F10.10 Alcohol abuse, uncomplicated; F17.200 Nicotine dependence, unspecified, uncomplicated; Z79.84 Long term (current) use of oral hypoglycemic drugs; Z79.899 Other long term (current) drug therapy; Z91.013 Allergy to seafood; Z91.041 Radiographic dye allergy status
CPT/HCPCS: 96372; 99282; J1885

== ENCOUNTER 2023-06-17 21:31 | Emergency (ER) | payer OTHER ==
[~2023-06-17] VITALS: Ht 172.7 cm; Wt 104.4 kg
[~2023-06-17 21:31] MED LIST changes: +AMOX875T2 PO; +KETO10TAB PO
[2023-06-17 21:32] VITALS: BP 163/93; TEMP 96.8; O2SAT 98
[2023-06-17 22:39] LABS: BASO # 0.1 10^3/uL (0.0-0.2); BASO % 0.9 % (0.0-1.0); EOS # 0.2 10^3/uL (0.0-0.5); EOS % 2.3 % (0.0-3.0); HEMATOCRIT 36.8 % (42.0-52.0); HEMOGLOBIN 12.7 g/dl (13.5-17.5); LYMPH # 2.5 10^3/uL (1.5-5.0); LYMPH % 32.4 % (24.0-44.0); MEAN CORPUSCULAR HEMOGLOBIN 31.6 pg (27.0-33.0); MEAN CORPUSCULAR HGB CONC 34.5 g/dl (32.0-36.5); MEAN CORPUSCULAR VOLUME 91.5 fl (80.0-96.0); MONO # 0.5 10^3/uL (0.0-0.8); NEUTROPHILS # 4.4 10^3/uL (1.5-8.5); NEUTROPHILS % 57.1 % (36.0-66.0); PLATELET COUNT, AUTOMATED 190 10^3/uL (150-450); RED BLOOD COUNT 4.02 10^6/uL (4.30-6.10); WHITE BLOOD COUNT 7.7 10^3/uL (4.0-10.0)
[2023-06-17 22:44] LABS: ERYTHROCYTE SEDIMENTATION RATE 32 mm/hr (0-15)
[2023-06-17 23:10] LABS: BLOOD UREA NITROGEN 6 MG/DL (9-23); CALCIUM LEVEL 8.5 MG/DL (8.5-10.1); CARBON DIOXIDE LEVEL 22 MMOL/L (20-31); CHLORIDE LEVEL 104 MMOL/L (98-107); CREATININE FOR GFR 0.74 MG/DL (0.70-1.30); GLOMERULAR FILTRATION RATE > 60.0 (>60); GLUCOSE, FASTING 240 MG/DL (60-100); POTASSIUM SERUM 3.5 MMOL/L (3.5-5.1); SODIUM LEVEL 135 MMOL/L (136-145)
== END 2023-06-18 | disposition left against medical advice (07) ==
LOC: M ED 21:31
DX: Z53.21 Procedure and treatment not carried out due to patient leaving prior to being seen by health care provider (principal)

== ENCOUNTER 2023-06-25 02:24 | Emergency (ER) | payer OTHER ==
[~2023-06-25] VITALS: Ht 172.7 cm; Wt 97.7 kg
[2023-06-25] MEDS: diphenhydrAMINE 50MG/ML VIAL IV ONE (02:57)
[2023-06-25] MEDS: methylPREDNISolone 125MG 2ML VIAL IV ONE (02:57)
[2023-06-25] MEDS ORDERED: ISOVUE-370 76% 100ML VIAL As Ordered ONE (02:59)
[2023-06-25 03:03] LABS: VENOUS BASE EXCESS -4.2 (-2.0-2.0); VENOUS HCO3 19.3 MMOL/L (23.0-27.0); VENOUS O2 SATURATION 96.6 % (60.0-80.0); VENOUS PARTIAL PRESSURE CO2 30.9 mmHg (38.0-50.0); VENOUS PARTIAL PRESSURE O2 92.6 mmHg (30.0-50.0); VENOUS PH 7.413 UNITS (7.330-7.430); VENOUS TOTAL CO2 20.2 MMOL/L (24.0-28.0)
[2023-06-25 03:14] LABS: BASO # 0.1 10^3/uL (0.0-0.2); BASO % 1.2 % (0.0-1.0); EOS # 0.2 10^3/uL (0.0-0.5); EOS % 2.7 % (0.0-3.0); HEMATOCRIT 36.6 % (42.0-52.0); HEMOGLOBIN 12.1 g/dl (13.5-17.5); LYMPH # 2.7 10^3/uL (1.5-5.0); LYMPH % 31.7 % (24.0-44.0); MEAN CORPUSCULAR HEMOGLOBIN 30.7 pg (27.0-33.0); MEAN CORPUSCULAR HGB CONC 33.1 g/dl (32.0-36.5); MEAN CORPUSCULAR VOLUME 92.9 fl (80.0-96.0); MONO # 0.7 10^3/uL (0.0-0.8); MONO % 8.1 % (2.0-8.0); NEUTROPHILS # 4.8 10^3/uL (1.5-8.5); NEUTROPHILS % 55.9 % (36.0-66.0); PLATELET COUNT, AUTOMATED 226 10^3/uL (150-450); RED BLOOD COUNT 3.94 10^6/uL (4.30-6.10); WHITE BLOOD COUNT 8.6 10^3/uL (4.0-10.0)
[2023-06-25 03:20] LABS: INR 1.12; PARTIAL THROMBOPLASTIN TIME 31.8 SECONDS (24.8-34.2); PROTHROMBIN TIME 14.1 SECONDS (12.5-14.5)
[2023-06-25 03:30] LABS: ETHYL ALCOHOL (ETHANOL) < 0.003 % (0.000-0.010); LIPASE 61 U/L (12-53)
[2023-06-25 03:32] LABS: ALBUMIN 3.5 G/DL (3.2-5.2); ALKALINE PHOSPHATASE 70 U/L (46-116); ALT/SGPT 69 U/L (7.0-40); AST/SGOT 39 U/L (<34); BILIRUBIN,DIRECT 0.2 MG/DL (<0.4); BILIRUBIN,TOTAL 0.6 MG/DL (0.3-1.2); CPK CREATINE PHOSPHOKINASE 203 U/L (46-171); MB/CK RELATIVE INDEX 1.47 (< OR =4); TOTAL PROTEIN 6.9 G/DL (5.7-8.2)
[2023-06-25 05:12] LABS: CK-MB VALUE MASS 3.2 NG/ML (<3.6)
[2023-06-25 05:13] LABS: MB/CK RELATIVE INDEX 1.6 (< OR =4)
[2023-06-25] MEDS ORDERED: PRED20TA PO (05:57)
[2023-06-25 06:00] VITALS: BP 142/92; TEMP 97.8; O2SAT 96
[2023-06-25] MEDS: ALBUTEROL 90 MCG/ACT 8GM HFA INHALER INH ONE (06:04)
== END 2023-06-25 06:14 | disposition home or self-care (01) ==
LOC: M ED 02:24
DX: J44.9 Chronic obstructive pulmonary disease, unspecified (principal); R00.0 Tachycardia, unspecified; E11.9 Type 2 diabetes mellitus without complications; I10 Essential (primary) hypertension; E78.5 Hyperlipidemia, unspecified; F17.290 Nicotine dependence, other tobacco product, uncomplicated; F10.10 Alcohol abuse, uncomplicated; F15.10 Other stimulant abuse, uncomplicated; Z91.041 Radiographic dye allergy status; Z91.013 Allergy to seafood; Z79.2 Long term (current) use of antibiotics; Z79.84 Long term (current) use of oral hypoglycemic drugs; Z79.52 Long term (current) use of systemic steroids; Z79.810 Long term (current) use of selective estrogen receptor modulators (SERMs); Z79.899 Other long term (current) drug therapy
CPT/HCPCS: 71275; 74174; 80047; 80076; 81001; 82077; 82140; 82550; 82553; 82803; 83605; 83690; 85025; 85610; 85730; 93005; 93041; 96374; 99285; J1200; J2919; Q9967

== ENCOUNTER 2023-07-19 14:29 | Emergency (ER) | payer OTHER ==
[~2023-07-19] VITALS: Ht 172.7 cm; Wt 108.0 kg
[~2023-07-19 14:29] MED LIST changes: +PRED20TA PO
[2023-07-19 16:16] LABS: APPEARANCE, URINE CLEAR (CLEAR); BACTERIA, URINE AUTO NEGATIVE (NEGATIVE); BILIRUBIN, URINE AUTO NEGATIVE (NEGATIVE); BLOOD, URINE BLOOD NEGATIVE (NEGATIVE); COLOR, URINE STRAW (YELLOW); GLUCOSE, URINE (UA) AUTO NEGATIVE (NEGATIVE); KETONE, URINE AUTO NEGATIVE (NEGATIVE); LEUKOCYTE ESTERASE, URINE AUTO NEGATIVE (NEGATIVE); NITRITE, URINE AUTO NEGATIVE (NEGATIVE); PROTEIN, URINE AUTO 2+ mg/dL (NEGATIVE); RBC, URINE AUTO 0 /HPF (0-3); SPECIFIC GRAVITY URINE AUTO 1.003 (1.002-1.035); SQUAMOUS EPITHELIAL CELL UR AU 0 /HPF (0-6); UROBILINOGEN, URINE AUTO 0.2 mg/dL (0.0-2.0); WBC, URINE AUTO 0 /HPF (0-3)
[2023-07-19 16:56] LABS: HEMATOCRIT 38.6 % (42.0-52.0); HEMOGLOBIN 12.4 g/dl (13.5-17.5); MEAN CORPUSCULAR HEMOGLOBIN 28.7 pg (27.0-33.0); MEAN CORPUSCULAR HGB CONC 32.1 g/dl (32.0-36.5); MEAN CORPUSCULAR VOLUME 89.4 fl (80.0-96.0); PLATELET COUNT, AUTOMATED 234 10^3/uL (150-450); RED BLOOD COUNT 4.32 10^6/uL (4.30-6.10); WHITE BLOOD COUNT 10.3 10^3/uL (4.0-10.0)
[2023-07-19 17:19] LABS: ATYPICAL LYMPH 2 % (0-5); BASOPHILS 2 % (0-1); EOSINOPHILS 4 % (0-3); LYMPHOCYTES 44 % (16-44); MONOCYTES 2 % (0-5); NEUTROPHILS 46 % (28-66); PLATELET ESTIMATE NORMAL (NORMAL)
[2023-07-19 17:20] LABS: LIPASE 91 U/L (12-53)
[2023-07-19 17:21] LABS: ETHYL ALCOHOL (ETHANOL) < 0.003 % (0.000-0.010)
[2023-07-19 17:26] LABS: FREE T4 1.29 NG/DL (0.89-1.76); THYROID STIMULATING HORMONE 1.383 uIU/ML (0.55-4.78)
[2023-07-19 17:29] VITALS: BP 157/88; TEMP 97.8; O2SAT 98
[2023-07-19 17:29] LABS: ALBUMIN 3.1 G/DL (3.2-5.2); ALKALINE PHOSPHATASE 77 U/L (46-116); ALT/SGPT 52 U/L (7.0-40); AST/SGOT 37 U/L (<34); BILIRUBIN,DIRECT 0.3 MG/DL (<0.4); BILIRUBIN,TOTAL 0.8 MG/DL (0.3-1.2); BLOOD UREA NITROGEN 10 MG/DL (9-23); CALCIUM LEVEL 9.1 MG/DL (8.5-10.1); CARBON DIOXIDE LEVEL 22 MMOL/L (20-31); CHLORIDE LEVEL 103 MMOL/L (98-107); CREATININE FOR GFR 0.81 MG/DL (0.70-1.30); GLOMERULAR FILTRATION RATE > 60.0 (>60); GLUCOSE, FASTING 157 MG/DL (60-100); POTASSIUM SERUM 4.1 MMOL/L (3.5-5.1); SODIUM LEVEL 135 MMOL/L (136-145); TOTAL PROTEIN 6.9 G/DL (5.7-8.2)
[2023-07-19] MEDS ORDERED: NS 500 ML IV ONE (17:50)
== END 2023-07-19 18:08 | disposition left against medical advice (07) ==
LOC: M ED 14:29
DX: R53.83 Other fatigue (principal); E11.9 Type 2 diabetes mellitus without complications; I10 Essential (primary) hypertension; F17.210 Nicotine dependence, cigarettes, uncomplicated; F10.10 Alcohol abuse, uncomplicated; Z91.013 Allergy to seafood; Z91.041 Radiographic dye allergy status; Z79.2 Long term (current) use of antibiotics; Z79.84 Long term (current) use of oral hypoglycemic drugs; Z79.810 Long term (current) use of selective estrogen receptor modulators (SERMs); Z79.899 Other long term (current) drug therapy; Z53.9 Procedure and treatment not carried out, unspecified reason

== ENCOUNTER → 2023-07-21 | Outpatient (CLI) | payer OTHER ==
[2023-07-21 12:21] LABS: BASO # 0.1 10^3/uL (0.0-0.2); BASO % 1.2 % (0.0-1.0); EOS # 0.1 10^3/uL (0.0-0.5); EOS % 1.1 % (0.0-3.0); HEMATOCRIT 35.8 % (42.0-52.0); HEMOGLOBIN 11.6 g/dl (13.5-17.5); LYMPH # 2.9 10^3/uL (1.5-5.0); MEAN CORPUSCULAR HEMOGLOBIN 28.6 pg (27.0-33.0); MEAN CORPUSCULAR HGB CONC 32.4 g/dl (32.0-36.5); MEAN CORPUSCULAR VOLUME 88.2 fl (80.0-96.0); MONO # 0.6 10^3/uL (0.0-0.8); MONO % 6.9 % (2.0-8.0); NEUTROPHILS # 4.6 10^3/uL (1.5-8.5); NEUTROPHILS % 55.6 % (36.0-66.0); PLATELET COUNT, AUTOMATED 219 10^3/uL (150-450); RED BLOOD COUNT 4.06 10^6/uL (4.30-6.10); WHITE BLOOD COUNT 8.3 10^3/uL (4.0-10.0)
[2023-07-21 12:39] LABS: ALBUMIN 3.1 G/DL (3.2-5.2); ALKALINE PHOSPHATASE 74 U/L (46-116); ALT/SGPT 68 U/L (7.0-40); AST/SGOT 50 U/L (<34); BILIRUBIN,TOTAL 1.2 MG/DL (0.3-1.2); BLOOD UREA NITROGEN 9 MG/DL (9-23); CALCIUM LEVEL 8.4 MG/DL (8.5-10.1); CARBON DIOXIDE LEVEL 25 MMOL/L (20-31); CHLORIDE LEVEL 103 MMOL/L (98-107); CREATININE FOR GFR 0.93 MG/DL (0.70-1.30); GLOMERULAR FILTRATION RATE > 60.0 (>60); GLUCOSE, FASTING 173 MG/DL (60-100); POTASSIUM SERUM 4.3 MMOL/L (3.5-5.1); SODIUM LEVEL 135 MMOL/L (136-145); TOTAL PROTEIN 6.7 G/DL (5.7-8.2)
[2023-07-21 12:53] LABS: HEPATITIS B SURFACE ANTIGEN NEGATIVE (NEGATIVE)
[2023-07-21 13:13] LABS: HEPATITIS C VIRUS ABY INDEX 0.05 INDEX (<0.8)
[2023-07-21 13:14] LABS: HEPATITIS B CORE ANTIBODY IGM NEGATIVE (NEGATIVE)
== END ==
LOC: M LAB 11:36
PROVIDERS: ATTEND Physician Assistant Medical
DX: E11.9 Type 2 diabetes mellitus without complications (principal); K74.60 Unspecified cirrhosis of liver

== ENCOUNTER 2023-07-27 00:49 | Emergency (ER) | payer OTHER ==
[~2023-07-27] VITALS: Ht 172.7 cm; Wt 101.1 kg
[2023-07-27 00:51] VITALS: BP 131/86; TEMP 97.3; O2SAT 98
== END 2023-07-27 04:29 | disposition left against medical advice (07) ==
LOC: M ED 00:49
DX: Z53.21 Procedure and treatment not carried out due to patient leaving prior to being seen by health care provider (principal)

== ENCOUNTER 2023-07-27 11:19 | Emergency (ER) | payer OTHER ==
[~2023-07-27] VITALS: Ht 172.7 cm; Wt 103.2 kg
[2023-07-27 13:07] LABS: BASO # 0.1 10^3/uL (0.0-0.2); BASO % 1.1 % (0.0-1.0); EOS # 0.1 10^3/uL (0.0-0.5); EOS % 0.6 % (0.0-3.0); HEMATOCRIT 35.6 % (42.0-52.0); HEMOGLOBIN 11.4 g/dl (13.5-17.5); LYMPH # 2.8 10^3/uL (1.5-5.0); LYMPH % 34.2 % (24.0-44.0); MEAN CORPUSCULAR HEMOGLOBIN 27.7 pg (27.0-33.0); MEAN CORPUSCULAR VOLUME 86.4 fl (80.0-96.0); MONO # 0.6 10^3/uL (0.0-0.8); MONO % 7.2 % (2.0-8.0); NEUTROPHILS # 4.6 10^3/uL (1.5-8.5); NEUTROPHILS % 56.5 % (36.0-66.0); PLATELET COUNT, AUTOMATED 211 10^3/uL (150-450); RED BLOOD COUNT 4.12 10^6/uL (4.30-6.10); WHITE BLOOD COUNT 8.1 10^3/uL (4.0-10.0)
[2023-07-27 13:20] LABS: D-DIMER QUANT 1.2 ug/mL (<0.5); INR 1.31; PROTHROMBIN TIME 15.9 SECONDS (12.5-14.5)
[2023-07-27 13:33] LABS: CK-MB VALUE MASS 5.7 NG/ML (<3.6)
[2023-07-27 13:35] LABS: CPK CREATINE PHOSPHOKINASE 517 U/L (46-171)
[2023-07-27 13:36] LABS: ALBUMIN 3.2 G/DL (3.2-5.2); ALKALINE PHOSPHATASE 76 U/L (46-116); ALT/SGPT 71 U/L (7.0-40); AST/SGOT 45 U/L (<34); BILIRUBIN,DIRECT 0.5 MG/DL (<0.4); BILIRUBIN,TOTAL 1.1 MG/DL (0.3-1.2); BLOOD UREA NITROGEN 12 MG/DL (9-23); CALCIUM LEVEL 8.9 MG/DL (8.5-10.1); CARBON DIOXIDE LEVEL 25 MMOL/L (20-31); CHLORIDE LEVEL 102 MMOL/L (98-107); CREATININE FOR GFR 0.91 MG/DL (0.70-1.30); GLOMERULAR FILTRATION RATE > 60.0 (>60); GLUCOSE, FASTING 136 MG/DL (60-100); POTASSIUM SERUM 4.2 MMOL/L (3.5-5.1); SODIUM LEVEL 133 MMOL/L (136-145); TOTAL PROTEIN 6.6 G/DL (5.7-8.2)
[2023-07-27 13:37] LABS: THYROID STIMULATING HORMONE 2.784 uIU/ML (0.55-4.78)
[2023-07-27 13:38] LABS: FREE T4 1.18 NG/DL (0.89-1.76)
[2023-07-27 14:24] LABS: CK-MB VALUE MASS 5.6 NG/ML (<3.6)
[2023-07-27 14:26] LABS: MB/CK RELATIVE INDEX 1.06 (< OR =4)
[2023-07-27] MEDS: diphenhydrAMINE 50MG/ML VIAL IV STA (15:30)
[2023-07-27] MEDS: methylPREDNISolone 125MG 2ML VIAL IV ONE (15:30)
[2023-07-27 15:40] LABS: CK-MB VALUE MASS 5.1 NG/ML (<3.6)
[2023-07-27] MEDS ORDERED: ISOVUE-370 76% 100ML VIAL As Ordered ONE (15:53)
[2023-07-27 17:30] VITALS: BP 134/86; TEMP 98.1; O2SAT 98
== END 2023-07-27 17:33 | disposition home or self-care (01) ==
LOC: M ED 11:19
DX: J43.9 Emphysema, unspecified (principal); R06.02 Shortness of breath; R00.0 Tachycardia, unspecified; I50.22 Chronic systolic (congestive) heart failure; E11.9 Type 2 diabetes mellitus without complications; I11.0 Hypertensive heart disease with heart failure; Z87.891 Personal history of nicotine dependence; F10.10 Alcohol abuse, uncomplicated; Z91.041 Radiographic dye allergy status; Z91.013 Allergy to seafood; Z79.84 Long term (current) use of oral hypoglycemic drugs; Z79.899 Other long term (current) drug therapy
CPT/HCPCS: 71045; 71275; 80048; 80076; 82550; 82553; 83880; 84439; 84443; 84484; 85025; 85379; 85610; 87486; 87581; 87633; 87798; 93005; 93041; 94760; 96374; 99285; J1200; J2919; Q9967

== ENCOUNTER → 2023-08-02 | Outpatient (REF) | payer OTHER | LOC: M SFHCPLAZ 10:44 | PROVIDERS: ATTEND Student in an Organized Health Care Education/Training Program | DX: E78.5 Hyperlipidemia, unspecified (principal); I11.0 Hypertensive heart disease with heart failure; E11.9 Type 2 diabetes mellitus without complications; F10.10 Alcohol abuse, uncomplicated; D64.9 Anemia, unspecified; I50.22 Chronic systolic (congestive) heart failure ==

== ENCOUNTER → 2023-08-02 | Outpatient (CLI) | payer OTHER ==
[2023-08-02 13:48] LABS: BASO # 0.1 10^3/uL (0.0-0.2); BASO % 1.3 % (0.0-1.0); EOS # 0.1 10^3/uL (0.0-0.5); EOS % 2.2 % (0.0-3.0); HEMATOCRIT 36.4 % (42.0-52.0); HEMOGLOBIN 11.5 g/dl (13.5-17.5); LYMPH # 1.7 10^3/uL (1.5-5.0); LYMPH % 27.5 % (24.0-44.0); MEAN CORPUSCULAR HEMOGLOBIN 27.8 pg (27.0-33.0); MEAN CORPUSCULAR HGB CONC 31.6 g/dl (32.0-36.5); MEAN CORPUSCULAR VOLUME 87.9 fl (80.0-96.0); MONO # 0.9 10^3/uL (0.0-0.8); NEUTROPHILS # 3.4 10^3/uL (1.5-8.5); NEUTROPHILS % 53.8 % (36.0-66.0); PLATELET COUNT, AUTOMATED 188 10^3/uL (150-450); RED BLOOD COUNT 4.14 10^6/uL (4.30-6.10); WHITE BLOOD COUNT 6.3 10^3/uL (4.0-10.0)
[2023-08-02 13:54] LABS: ALBUMIN 3.2 G/DL (3.2-5.2); ALKALINE PHOSPHATASE 72 U/L (46-116); ALT/SGPT 44 U/L (7.0-40); AST/SGOT 23 U/L (<34); BILIRUBIN,TOTAL 0.8 MG/DL (0.3-1.2); BLOOD UREA NITROGEN 13 MG/DL (9-23); CALCIUM LEVEL 8.5 MG/DL (8.5-10.1); CARBON DIOXIDE LEVEL 24 MMOL/L (20-31); CHLORIDE LEVEL 104 MMOL/L (98-107); CHOLESTEROL LEVEL 93 MG/DL (<200); CHOLESTEROL RISK RATIO 3.17 (<5); CREATININE FOR GFR 1.05 MG/DL (0.70-1.30); GLOMERULAR FILTRATION RATE > 60.0 (>60); GLUCOSE, FASTING 138 MG/DL (60-100); HDL CHOLESTEROL 29.3 MG/DL (>40); LDL CHOLESTEROL 49.7 MG/DL (<100); NON-HDL-C 63.7 MG/DL; POTASSIUM SERUM 4.8 MMOL/L (3.5-5.1); SODIUM LEVEL 133 MMOL/L (136-145); TOTAL PROTEIN 6.4 G/DL (5.7-8.2); TRIGLYCERIDES LEVEL 70 MG/DL (<150)
[2023-08-02 13:56] LABS: VITAMIN B12 LEVEL 946 PG/ML (211-911)
[2023-08-02 13:58] LABS: FOLATE 18.24 NG/ML (>5.4)
[2023-08-02 14:11] LABS: HEMOGLOBIN A1c 8.2 % (4.0-6.0)
== END ==
LOC: M PLALAB 09:51
PROVIDERS: ATTEND Student in an Organized Health Care Education/Training Program
DX: I11.0 Hypertensive heart disease with heart failure (principal); I50.20 Unspecified systolic (congestive) heart failure; E78.5 Hyperlipidemia, unspecified; E11.9 Type 2 diabetes mellitus without complications; F10.10 Alcohol abuse, uncomplicated

== ENCOUNTER 2023-08-04 08:10 | Inpatient (IN) | payer OTHER ==
[~2023-08-04] VITALS: Ht 172.7 cm; Wt 108.6 kg
[2023-08-04] MEDS ORDERED: ASPI81CH33 PO (08:19)
[2023-08-04 08:39] LABS: VENOUS PARTIAL PRESSURE CO2 32.1 mmHg (38.0-50.0); VENOUS PARTIAL PRESSURE O2 43.5 mmHg (30.0-50.0); VENOUS PH 7.389 UNITS (7.330-7.430); VENOUS STANDARD HCO3 19.9 MMOL/L; VENOUS TOTAL CO2 19.9 MMOL/L (24.0-28.0)
[2023-08-04 09:22] LABS: ALBUMIN 3.6 G/DL (3.2-5.2); ALKALINE PHOSPHATASE 85 U/L (46-116); ALT/SGPT 63 U/L (7.0-40); AST/SGOT 59 U/L (<34); BILIRUBIN,DIRECT 0.7 MG/DL (<0.4); BILIRUBIN,TOTAL 1.6 MG/DL (0.3-1.2); BLOOD UREA NITROGEN 15 MG/DL (9-23); CALCIUM LEVEL 8.5 MG/DL (8.5-10.1); CARBON DIOXIDE LEVEL 22 MMOL/L (20-31); CHLORIDE LEVEL 99 MMOL/L (98-107); CREATININE FOR GFR 0.84 MG/DL (0.70-1.30); GLOMERULAR FILTRATION RATE > 60.0 (>60); GLUCOSE, FASTING 171 MG/DL (60-100); POTASSIUM SERUM 4.5 MMOL/L (3.5-5.1); SODIUM LEVEL 132 MMOL/L (136-145); TOTAL PROTEIN 7.3 G/DL (5.7-8.2)
[2023-08-04 10:09] LABS: BASO # 0.1 10^3/uL (0.0-0.2); BASO % 1.1 % (0.0-1.0); EOS % 0.3 % (0.0-3.0); HEMOGLOBIN 12.7 g/dl (13.5-17.5); LYMPH # 1.8 10^3/uL (1.5-5.0); LYMPH % 27.8 % (24.0-44.0); MEAN CORPUSCULAR HEMOGLOBIN 27.2 pg (27.0-33.0); MEAN CORPUSCULAR HGB CONC 31.8 g/dl (32.0-36.5); MEAN CORPUSCULAR VOLUME 85.7 fl (80.0-96.0); MONO # 0.7 10^3/uL (0.0-0.8); MONO % 11.7 % (2.0-8.0); NEUTROPHILS # 3.7 10^3/uL (1.5-8.5); NEUTROPHILS % 58.8 % (36.0-66.0); PLATELET COUNT, AUTOMATED 187 10^3/uL (150-450); RED BLOOD COUNT 4.67 10^6/uL (4.30-6.10); WHITE BLOOD COUNT 6.3 10^3/uL (4.0-10.0)
[2023-08-04] MEDS: TAMSULOSIN 0.4 MG CAP PO ONE (11:03)
[2023-08-04] MEDS: FINASTERIDE 5MG TAB PO ONE (11:03)
[2023-08-04] MEDS: FUROSEMIDE 40MG/4ML VIAL IV ONE (11:04)
[2023-08-04] MEDS: LIDOCAINE 2% 5ML JELLY UROJET TOP ONE (11:05)
[2023-08-04 12:11] LABS: CK-MB VALUE MASS 5.5 NG/ML (<3.6)
[2023-08-04 12:12] LABS: CPK CREATINE PHOSPHOKINASE 715 U/L (46-171); MB/CK RELATIVE INDEX 0.76 (< OR =4)
[2023-08-04 13:03] LABS: INR 1.4; PROTHROMBIN TIME 16.7 SECONDS (12.5-14.5)
[2023-08-04] MEDS: ENOXAPARIN 100MG/1ML SYRINGE (J1650 PER 10MG) SC ONE (14:05)
[2023-08-04] MEDS ORDERED: METF500T13 PO (14:56)
[2023-08-04] MEDS ORDERED: METO1TAB32 PO (14:56)
[2023-08-04] MEDS ORDERED: AMOX875T2 PO (14:56)
[2023-08-04] MEDS ORDERED: LISI5TAB11 PO (14:56)
[2023-08-04] MEDS ORDERED: ASPI81TA26 PO (14:56)
[2023-08-04] MEDS ORDERED: VENTAER INH (14:56)
[2023-08-04] MEDS ORDERED: FURO20TA2 PO (14:56)
[2023-08-04] MEDS ORDERED: SPIR50TA4 PO (14:56)
[2023-08-04] MEDS ORDERED: ATOR40TA75 PO (14:56)
[2023-08-04] MEDS ORDERED: FARX1TAB3 PO (14:56)
[2023-08-04] MEDS: methylPREDNISolone 125MG 2ML VIAL IV ONE (15:00)
[2023-08-04] MEDS: FAMOTIDINE IV BAG 20 MG in IV 1 EA IV ONE (15:00)
[2023-08-04] MEDS: diphenhydrAMINE 50MG/ML VIAL IV ONE (15:00)
[2023-08-04] MEDS ORDERED: ACETAMINOPHEN TAB 650MG DOSE (2X325MG) PO PRN (15:00)
[2023-08-04] MEDS ORDERED: HOME MED LIST COMPLETE! XX SCH (15:00)
[2023-08-04] MEDS ORDERED: GLUCOSE 4 GM CHEW PO PRN (15:15)
[2023-08-04] MEDS ORDERED: GLUCAGON INJ 1MG VIAL SC PRN (15:15)
[2023-08-04] MEDS ORDERED: DEXTROSE 50% 50ML SYRINGE IV PRN (15:15)
[2023-08-04] MEDS ORDERED: ISOVUE-370 76% 100ML VIAL As Ordered ONE (16:47)
[2023-08-04] MEDS: cefTRIAXone SOD 1 GM in D5W MINI-BAG PLUS 50 ML IV SCH (18:17)
[2023-08-04 18:24] LABS: FREE T4 1.22 NG/DL (0.89-1.76); THYROID STIMULATING HORMONE 2.815 uIU/ML (0.55-4.78)
[2023-08-04] MEDS: INSULIN LISPRO (NovoLOG) PER UNIT SC SCH ×2 (18:40→20:59)
[2023-08-04 21:27] VITALS: BP 117/85; TEMP 98.1; O2SAT 99
[2023-08-05] MEDS: ALBUTEROL 90 MCG/ACT 8GM HFA INHALER INH PRN (05:25)
[2023-08-05 05:38] VITALS: BP 141/108; TEMP 97.3; O2SAT 98
[2023-08-05 06:05] LABS: HEMATOCRIT 36.2 % (42.0-52.0); HEMOGLOBIN 11.7 g/dl (13.5-17.5); MEAN CORPUSCULAR HEMOGLOBIN 27.3 pg (27.0-33.0); MEAN CORPUSCULAR HGB CONC 32.3 g/dl (32.0-36.5); MEAN CORPUSCULAR VOLUME 84.4 fl (80.0-96.0); PLATELET COUNT, AUTOMATED 206 10^3/uL (150-450); RED BLOOD COUNT 4.29 10^6/uL (4.30-6.10); WHITE BLOOD COUNT 7.3 10^3/uL (4.0-10.0)
[2023-08-05 06:27] LABS: ALBUMIN 3.4 G/DL (3.2-5.2); ALKALINE PHOSPHATASE 77 U/L (46-116); ALT/SGPT 62 U/L (7.0-40); AST/SGOT 47 U/L (<34); BILIRUBIN,TOTAL 1.2 MG/DL (0.3-1.2); BLOOD UREA NITROGEN 19 MG/DL (9-23); CALCIUM LEVEL 8.6 MG/DL (8.5-10.1); CARBON DIOXIDE LEVEL 22 MMOL/L (20-31); CHLORIDE LEVEL 96 MMOL/L (98-107); CREATININE FOR GFR 0.73 MG/DL (0.70-1.30); GLOMERULAR FILTRATION RATE > 60.0 (>60); GLUCOSE, FASTING 205 MG/DL (60-100); POTASSIUM SERUM 4.4 MMOL/L (3.5-5.1); SODIUM LEVEL 128 MMOL/L (136-145); TOTAL PROTEIN 6.9 G/DL (5.7-8.2)
[2023-08-05] MEDS: ASPIRIN 81MG ENTERIC TABLET PO SCH (08:43)
[2023-08-05] MEDS: DAPAGLIFLOZIN PROPANEDIOL 10MG TABLET (FARXIGA) PO SCH (08:43)
[2023-08-05] MEDS: ENOXAPARIN 40MG/0.4ML SYRINGE (J1650 PER 10MG) SC SCH (08:43)
[2023-08-05] MEDS: ATORVASTATIN 20 MG TAB PO SCH (08:44)
[2023-08-05] MEDS: FUROSEMIDE 40 MG TAB PO SCH ×2 (08:44→16:00)
[2023-08-05] MEDS: METOPROLOL SUCC *XL* 25MG TAB (TopROL *XL*) PO SCH (08:45)
[2023-08-05 10:00] VITALS: BP 137/103
[2023-08-05] MEDS: FINASTERIDE 5MG TAB PO SCH (12:17)
[2023-08-05] MEDS: METOPROLOL SUCC *XL* 25MG TAB (TopROL *XL*) PO ONE (12:20)
[2023-08-05 14:00] VITALS: BP 128/92; TEMP 97.9; O2SAT 95
[2023-08-05 20:21] VITALS: BP 125/90; TEMP 97.3; O2SAT 100
[2023-08-05] MEDS: TAMSULOSIN 0.4 MG CAP PO SCH (20:38)
[2023-08-05] MEDS: RAMELTEON 8 MG TAB (ROZEREM) PO SCH (20:38)
[2023-08-05] MEDS: LEVEMIR (INSULIN DETEMIR) 1 UNITS/0.01ML SC SCH (20:39)
[2023-08-06 05:51] LABS: BASO # 0.1 10^3/uL (0.0-0.2); EOS # 0.1 10^3/uL (0.0-0.5); HEMATOCRIT 36.7 % (42.0-52.0); HEMOGLOBIN 11.6 g/dl (13.5-17.5); LYMPH # 3.2 10^3/uL (1.5-5.0); LYMPH % 38.4 % (24.0-44.0); MEAN CORPUSCULAR HGB CONC 31.6 g/dl (32.0-36.5); MEAN CORPUSCULAR VOLUME 85.5 fl (80.0-96.0); MONO # 0.5 10^3/uL (0.0-0.8); MONO % 6.1 % (2.0-8.0); NEUTROPHILS # 4.4 10^3/uL (1.5-8.5); NEUTROPHILS % 53.3 % (36.0-66.0); PLATELET COUNT, AUTOMATED 177 10^3/uL (150-450); RED BLOOD COUNT 4.29 10^6/uL (4.30-6.10); WHITE BLOOD COUNT 8.3 10^3/uL (4.0-10.0)
[2023-08-06 06:11] VITALS: BP_SYST 112; BP_SYST 122; BP_DIAS 88; TEMP 97.2; O2SAT 93
[2023-08-06 06:26] LABS: ALBUMIN 3.2 G/DL (3.2-5.2); ALKALINE PHOSPHATASE 78 U/L (46-116); ALT/SGPT 57 U/L (7.0-40); AST/SGOT 37 U/L (<34); BILIRUBIN,TOTAL 0.9 MG/DL (0.3-1.2); BLOOD UREA NITROGEN 24 MG/DL (9-23); CALCIUM LEVEL 8.6 MG/DL (8.5-10.1); CARBON DIOXIDE LEVEL 24 MMOL/L (20-31); CHLORIDE LEVEL 101 MMOL/L (98-107); CREATININE FOR GFR 0.87 MG/DL (0.70-1.30); GLOMERULAR FILTRATION RATE > 60.0 (>60); GLUCOSE, FASTING 158 MG/DL (60-100); POTASSIUM SERUM 3.8 MMOL/L (3.5-5.1); SODIUM LEVEL 134 MMOL/L (136-145); TOTAL PROTEIN 6.5 G/DL (5.7-8.2)
[2023-08-06] MEDS: METOPROLOL SUCC (TopROL XL) 50MG **XL** TAB PO SCH (08:26)
[2023-08-06 14:00] VITALS: BP 118/82; TEMP 97.5; O2SAT 98
[2023-08-06] MEDS: FUROSEMIDE 40MG/4ML VIAL IV SCH (17:00)
[2023-08-06] MEDS ORDERED: FUROSEMIDE 40 MG TAB PO SCH (17:00)
[2023-08-06 20:10] VITALS: BP 116/82; TEMP 97.5; O2SAT 97
[2023-08-07 05:02] VITALS: BP 116/81; TEMP 97.5; O2SAT 98
[2023-08-07 05:46] LABS: HEMATOCRIT 34.3 % (42.0-52.0); MEAN CORPUSCULAR HEMOGLOBIN 27.3 pg (27.0-33.0); MEAN CORPUSCULAR HGB CONC 32.1 g/dl (32.0-36.5); MEAN CORPUSCULAR VOLUME 85.1 fl (80.0-96.0); PLATELET COUNT, AUTOMATED 169 10^3/uL (150-450); RED BLOOD COUNT 4.03 10^6/uL (4.30-6.10); WHITE BLOOD COUNT 8.7 10^3/uL (4.0-10.0)
[2023-08-07 06:06] LABS: BLOOD UREA NITROGEN 21 MG/DL (9-23); CALCIUM LEVEL 8.4 MG/DL (8.5-10.1); CARBON DIOXIDE LEVEL 25 MMOL/L (20-31); CHLORIDE LEVEL 100 MMOL/L (98-107); CREATININE FOR GFR 0.89 MG/DL (0.70-1.30); GLOMERULAR FILTRATION RATE > 60.0 (>60); GLUCOSE, FASTING 141 MG/DL (60-100); POTASSIUM SERUM 3.6 MMOL/L (3.5-5.1); SODIUM LEVEL 134 MMOL/L (136-145)
[2023-08-07] MEDS: LORazepam 1 MG TAB PO PRN (09:39)
[2023-08-07] MEDS: lisinopriL 5 MG TAB PO SCH (13:58)
[2023-08-07] MEDS: SPIRONOLACTONE 25 MG TAB PO SCH (13:58)
[2023-08-07 14:00] VITALS: BP 119/81; TEMP 97.5; O2SAT 94
[2023-08-07 22:00] VITALS: BP 119/82; TEMP 97.5; O2SAT 98
[2023-08-08 06:00] VITALS: BP 110/68; TEMP 97.3; O2SAT 97
[2023-08-08 06:41] LABS: BLOOD UREA NITROGEN 21 MG/DL (9-23); CALCIUM LEVEL 8.7 MG/DL (8.5-10.1); CARBON DIOXIDE LEVEL 25 MMOL/L (20-31); CHLORIDE LEVEL 97 MMOL/L (98-107); CREATININE FOR GFR 0.87 MG/DL (0.70-1.30); GLOMERULAR FILTRATION RATE > 60.0 (>60); GLUCOSE, FASTING 162 MG/DL (60-100); MAGNESIUM LEVEL 2.1 MG/DL (1.8-2.4); POTASSIUM SERUM 3.8 MMOL/L (3.5-5.1); SODIUM LEVEL 131 MMOL/L (136-145)
[2023-08-08] MEDS: METOPROLOL SUCC *XL* 25MG TAB (TopROL *XL*) PO SCH (08:44)
[2023-08-08 14:00] VITALS: BP 125/84; TEMP 97.5; O2SAT 97
[2023-08-08] MEDS: FUROSEMIDE 40MG/4ML VIAL IV SCH (17:02)
[2023-08-08] MEDS: metFORMIN (GLUCOPHAGE) 500MG TAB PO SCH (17:03)
[2023-08-08 20:36] VITALS: BP 125/85; TEMP 97.7; O2SAT 96
[2023-08-09 05:59] LABS: BASO # 0.1 10^3/uL (0.0-0.2); BASO % 0.7 % (0.0-1.0); EOS # 0.1 10^3/uL (0.0-0.5); EOS % 1.1 % (0.0-3.0); HEMATOCRIT 35.8 % (42.0-52.0); HEMOGLOBIN 11.2 g/dl (13.5-17.5); LYMPH # 3.2 10^3/uL (1.5-5.0); LYMPH % 28.7 % (24.0-44.0); MEAN CORPUSCULAR HEMOGLOBIN 26.7 pg (27.0-33.0); MEAN CORPUSCULAR HGB CONC 31.3 g/dl (32.0-36.5); MEAN CORPUSCULAR VOLUME 85.4 fl (80.0-96.0); MONO # 0.7 10^3/uL (0.0-0.8); NEUTROPHILS # 6.9 10^3/uL (1.5-8.5); PLATELET COUNT, AUTOMATED 185 10^3/uL (150-450); RED BLOOD COUNT 4.19 10^6/uL (4.30-6.10)
[2023-08-09 06:14] VITALS: BP 107/72; TEMP 98.1; O2SAT 97
[2023-08-09 06:22] LABS: ALBUMIN 3.1 G/DL (3.2-5.2); ALKALINE PHOSPHATASE 77 U/L (46-116); ALT/SGPT 50 U/L (7.0-40); AST/SGOT 29 U/L (<34); BLOOD UREA NITROGEN 20 MG/DL (9-23); CALCIUM LEVEL 8.7 MG/DL (8.5-10.1); CARBON DIOXIDE LEVEL 25 MMOL/L (20-31); CHLORIDE LEVEL 98 MMOL/L (98-107); CREATININE FOR GFR 0.92 MG/DL (0.70-1.30); GLOMERULAR FILTRATION RATE > 60.0 (>60); GLUCOSE, FASTING 160 MG/DL (60-100); MAGNESIUM LEVEL 2.1 MG/DL (1.8-2.4); POTASSIUM SERUM 3.5 MMOL/L (3.5-5.1); SODIUM LEVEL 132 MMOL/L (136-145); TOTAL PROTEIN 6.6 G/DL (5.7-8.2)
[2023-08-09 08:41] VITALS: BP 104/71
[2023-08-09] MEDS: METOPROLOL SUCC (TopROL XL) 50MG **XL** TAB PO SCH (08:41)
[2023-08-09] MEDS: CEPACOL LOZENGE PO PRN (08:49)
[2023-08-09] MEDS ORDERED: FINA5TAB2 PO (10:26)
[2023-08-09] MEDS ORDERED: FLOM0.4C39 PO (10:26)
== END 2023-08-09 12:40 | disposition home or self-care (01) | DRG 194 ==
LOC: M ED 08:10 → M ED INP 14:59 → M MSPAV 21:28
PROVIDERS: ADMIT Hospitalist; ATTEND Family Medicine
PROC: B246ZZZ Ultrasonography of Right and Left Heart (ICD-10-PCS; principal; 2023-08-05)
DX: I11.0 Hypertensive heart disease with heart failure (principal); E87.1 Hypo-osmolality and hyponatremia; I27.20 Pulmonary hypertension, unspecified; J43.9 Emphysema, unspecified; E78.5 Hyperlipidemia, unspecified; E11.9 Type 2 diabetes mellitus without complications; F10.20 Alcohol dependence, uncomplicated; F17.290 Nicotine dependence, other tobacco product, uncomplicated; N40.1 Benign prostatic hyperplasia with lower urinary tract symptoms; R39.198 Other difficulties with micturition; R00.0 Tachycardia, unspecified; F41.9 Anxiety disorder, unspecified; I34.0 Nonrheumatic mitral (valve) insufficiency; B34.8 Other viral infections of unspecified site; R74.01 Elevation of levels of liver transaminase levels; R33.9 Retention of urine, unspecified; I50.33 Acute on chronic diastolic (congestive) heart failure; Z79.82 Long term (current) use of aspirin; Z91.013 Allergy to seafood; Z79.84 Long term (current) use of oral hypoglycemic drugs; Z79.899 Other long term (current) drug therapy; Z91.041 Radiographic dye allergy status

== ENCOUNTER 2023-08-15 11:56 | Emergency (ER) | payer OTHER ==
[~2023-08-15] VITALS: Ht 172.7 cm; Wt 105.0 kg
[~2023-08-15 11:56] MED LIST changes: +ASPI81CH33 PO; +ASPI81TA26 PO; +FINA5TAB2 PO; +FLOM0.4C39 PO; +SPIR50TA4 PO; +VENTAER INH
[2023-08-15 14:48] LABS: BASO # 0.1 10^3/uL (0.0-0.2); BASO % 0.9 % (0.0-1.0); EOS # 0.1 10^3/uL (0.0-0.5); EOS % 0.7 % (0.0-3.0); HEMATOCRIT 36.1 % (42.0-52.0); HEMOGLOBIN 11.3 g/dl (13.5-17.5); LYMPH # 2.7 10^3/uL (1.5-5.0); LYMPH % 26.4 % (24.0-44.0); MEAN CORPUSCULAR HEMOGLOBIN 26.8 pg (27.0-33.0); MEAN CORPUSCULAR HGB CONC 31.3 g/dl (32.0-36.5); MEAN CORPUSCULAR VOLUME 85.5 fl (80.0-96.0); MONO # 0.7 10^3/uL (0.0-0.8); MONO % 7.1 % (2.0-8.0); NEUTROPHILS # 6.7 10^3/uL (1.5-8.5); NEUTROPHILS % 64.5 % (36.0-66.0); PLATELET COUNT, AUTOMATED 230 10^3/uL (150-450); RED BLOOD COUNT 4.22 10^6/uL (4.30-6.10); WHITE BLOOD COUNT 10.3 10^3/uL (4.0-10.0)
[2023-08-15 15:10] LABS: ALBUMIN 3.1 G/DL (3.2-5.2); ALKALINE PHOSPHATASE 73 U/L (46-116); ALT/SGPT 41 U/L (7.0-40); AST/SGOT 23 U/L (<34); BILIRUBIN,DIRECT 0.5 MG/DL (<0.4); BILIRUBIN,TOTAL 1.3 MG/DL (0.3-1.2); BLOOD UREA NITROGEN 15 MG/DL (9-23); CALCIUM LEVEL 8.4 MG/DL (8.5-10.1); CARBON DIOXIDE LEVEL 24 MMOL/L (20-31); CHLORIDE LEVEL 102 MMOL/L (98-107); GLOMERULAR FILTRATION RATE > 60.0 (>60); GLUCOSE, FASTING 137 MG/DL (60-100); POTASSIUM SERUM 4.2 MMOL/L (3.5-5.1); SODIUM LEVEL 132 MMOL/L (136-145); TOTAL PROTEIN 6.4 G/DL (5.7-8.2)
[2023-08-15 17:50] LABS: CK-MB VALUE MASS 4.4 NG/ML (<3.6)
[2023-08-15 17:51] LABS: CPK CREATINE PHOSPHOKINASE 200 U/L (46-171)
[2023-08-15] MEDS ORDERED: ISOVUE-370 76% 100ML VIAL As Ordered ONE (18:12)
[2023-08-15] MEDS: diphenhydrAMINE 50MG/ML VIAL IV STA (18:17)
[2023-08-15] MEDS: methylPREDNISolone 125MG 2ML VIAL IV ONE (18:17)
[2023-08-15] MEDS: FUROSEMIDE 40MG/4ML VIAL IV ONE (18:17)
[2023-08-15 18:21] LABS: CK-MB VALUE MASS 4.7 NG/ML (<3.6)
[2023-08-15 18:23] LABS: MB/CK RELATIVE INDEX 2.24 (< OR =4)
[2023-08-15 18:26] LABS: FREE T4 1.08 NG/DL (0.89-1.76); THYROID STIMULATING HORMONE 3.62 uIU/ML (0.55-4.78)
[2023-08-15 20:23] VITALS: BP 133/93; TEMP 97.9; O2SAT 100
[2023-08-15 20:26] VITALS: O2SAT 100
== END 2023-08-15 20:26 | disposition home or self-care (01) ==
LOC: M ED 11:56
DX: R60.1 Generalized edema (principal); E11.9 Type 2 diabetes mellitus without complications; I50.22 Chronic systolic (congestive) heart failure; I11.0 Hypertensive heart disease with heart failure; E78.5 Hyperlipidemia, unspecified; R00.0 Tachycardia, unspecified; Z91.041 Radiographic dye allergy status; Z91.013 Allergy to seafood; Z79.51 Long term (current) use of inhaled steroids; Z79.2 Long term (current) use of antibiotics; Z79.1 Long term (current) use of non-steroidal anti-inflammatories (NSAID); Z79.84 Long term (current) use of oral hypoglycemic drugs; Z79.899 Other long term (current) drug therapy
CPT/HCPCS: 71045; 71275; 80048; 80076; 82550; 82553; 83880; 84439; 84443; 84484; 85025; 93005; 93041; 93970; 94760; 96374; 99285; J1200; J1940; J2919; Q9967

== ENCOUNTER 2023-08-20 09:17 | Inpatient (IN) | payer OTHER ==
[~2023-08-20] VITALS: Ht 172.7 cm; Wt 108.6 kg
[2023-08-20 10:07] LABS: VENOUS BASE EXCESS -1.6 (-2.0-2.0); VENOUS HCO3 21.6 MMOL/L (23.0-27.0); VENOUS O2 SATURATION 96.8 % (60.0-80.0); VENOUS PARTIAL PRESSURE CO2 32.3 mmHg (38.0-50.0); VENOUS PARTIAL PRESSURE O2 89.3 mmHg (30.0-50.0); VENOUS PH 7.444 UNITS (7.330-7.430); VENOUS STANDARD HCO3 23.1 MMOL/L; VENOUS TOTAL CO2 22.6 MMOL/L (24.0-28.0)
[2023-08-20 10:11] LABS: BASO # 0.1 10^3/uL (0.0-0.2); BASO % 0.9 % (0.0-1.0); EOS # 0.2 10^3/uL (0.0-0.5); EOS % 1.3 % (0.0-3.0); HEMATOCRIT 37.3 % (42.0-52.0); HEMOGLOBIN 11.8 g/dl (13.5-17.5); LYMPH # 2.2 10^3/uL (1.5-5.0); LYMPH % 19.4 % (24.0-44.0); MEAN CORPUSCULAR HEMOGLOBIN 26.5 pg (27.0-33.0); MEAN CORPUSCULAR HGB CONC 31.6 g/dl (32.0-36.5); MEAN CORPUSCULAR VOLUME 83.6 fl (80.0-96.0); MONO # 0.6 10^3/uL (0.0-0.8); MONO % 5.4 % (2.0-8.0); NEUTROPHILS # 8.1 10^3/uL (1.5-8.5); NEUTROPHILS % 72.7 % (36.0-66.0); PLATELET COUNT, AUTOMATED 256 10^3/uL (150-450); RED BLOOD COUNT 4.46 10^6/uL (4.30-6.10); WHITE BLOOD COUNT 11.2 10^3/uL (4.0-10.0)
[2023-08-20] MEDS: diphenhydrAMINE 50MG/ML VIAL IV STA (10:11)
[2023-08-20] MEDS: methylPREDNISolone 125MG 2ML VIAL IV ONE (10:11)
[2023-08-20] MEDS ORDERED: ISOVUE-370 76% 100ML VIAL As Ordered ONE (10:12)
[2023-08-20] MEDS ORDERED: fentaNYL 100 MCG/2 ML INJECTION IV PRN (10:20)
[2023-08-20 10:25] LABS: INR 1.13; PARTIAL THROMBOPLASTIN TIME 29.7 SECONDS (24.8-34.2); PROTHROMBIN TIME 14.2 SECONDS (12.5-14.5)
[2023-08-20 10:42] LABS: CK-MB VALUE MASS 2.8 NG/ML (<3.6)
[2023-08-20 10:45] LABS: ALBUMIN 3.2 G/DL (3.2-5.2); ALKALINE PHOSPHATASE 74 U/L (46-116); ALT/SGPT 39 U/L (7.0-40); AMYLASE 79 U/L (30-118); AST/SGOT 18 U/L (<34); BILIRUBIN,DIRECT 0.4 MG/DL (<0.4); BILIRUBIN,TOTAL 0.9 MG/DL (0.3-1.2); BLOOD UREA NITROGEN 14 MG/DL (9-23); CALCIUM LEVEL 8.4 MG/DL (8.5-10.1); CARBON DIOXIDE LEVEL 22 MMOL/L (20-31); CHLORIDE LEVEL 102 MMOL/L (98-107); CPK CREATINE PHOSPHOKINASE 123 U/L (46-171); CREATININE FOR GFR 0.72 MG/DL (0.70-1.30); GLOMERULAR FILTRATION RATE > 60.0 (>60); GLUCOSE, FASTING 185 MG/DL (60-100); MB/CK RELATIVE INDEX 2.27 (< OR =4); SODIUM LEVEL 132 MMOL/L (136-145); TOTAL PROTEIN 6.6 G/DL (5.7-8.2)
[2023-08-20 10:51] LABS: PROCALCITONIN 0.04 ng/ml
[2023-08-20 11:45] LABS: CK-MB VALUE MASS 2.8 NG/ML (<3.6)
[2023-08-20 11:47] LABS: MB/CK RELATIVE INDEX 2.27 (< OR =4)
[2023-08-20] MEDS: LORazepam 2 MG/ML 1ML VIAL IV STA (12:06)
[2023-08-20] MEDS: PIPERACILLIN/TAZOBACTAM SOD 4.5 GM in D5W MINI-BAG PLUS 50 ML IV ONE (12:06)
[2023-08-20] MEDS: FUROSEMIDE 40MG/4ML VIAL IV ONE (12:06)
[2023-08-20] MEDS ORDERED: FLOM0.4C39 PO (13:14)
[2023-08-20] MEDS ORDERED: FINA5TAB2 PO (13:14)
[2023-08-20] MEDS ORDERED: LISI2.5T9 PO (13:14)
[2023-08-20] MEDS ORDERED: HOME MED LIST COMPLETE! XX SCH (13:15)
[2023-08-20] MEDS ORDERED: ACETAMINOPHEN TAB 650MG DOSE (2X325MG) PO PRN (13:45)
[2023-08-20] MEDS ORDERED: GLUCOSE 4 GM CHEW PO PRN (14:15)
[2023-08-20] MEDS ORDERED: DEXTROSE 50% 50ML SYRINGE IV PRN (14:15)
[2023-08-20] MEDS ORDERED: GLUCAGON INJ 1MG VIAL SC PRN (14:15)
[2023-08-20 15:07] VITALS: BP 101/68; TEMP 97.9; O2SAT 98
[2023-08-20] MEDS: cefTRIAXone SOD 1 GM in D5W MINI-BAG PLUS 50 ML IV SCH (16:55)
[2023-08-20] MEDS: INSULIN LISPRO (NovoLOG) PER UNIT SC SCH ×2 (17:51→21:32)
[2023-08-20 20:30] VITALS: BP 103/70; TEMP 97.9; O2SAT 98
[2023-08-20] MEDS: FUROSEMIDE 40MG/4ML VIAL IV SCH (21:32)
[2023-08-21] MEDS: RAMELTEON 8 MG TAB (ROZEREM) PO PRN (00:57)
[2023-08-21 02:24] VITALS: BP 111/76; TEMP 99.9; O2SAT 95
[2023-08-21 05:56] VITALS: BP 126/56; TEMP 97.5; O2SAT 99
[2023-08-21 07:44] LABS: HEMATOCRIT 39.9 % (42.0-52.0); HEMOGLOBIN 12.5 g/dl (13.5-17.5); MEAN CORPUSCULAR HEMOGLOBIN 26.6 pg (27.0-33.0); MEAN CORPUSCULAR HGB CONC 31.3 g/dl (32.0-36.5); MEAN CORPUSCULAR VOLUME 84.9 fl (80.0-96.0); PLATELET COUNT, AUTOMATED 298 10^3/uL (150-450); WHITE BLOOD COUNT 16.2 10^3/uL (4.0-10.0)
[2023-08-21 08:20] LABS: ALBUMIN 3.4 G/DL (3.2-5.2); ALKALINE PHOSPHATASE 74 U/L (46-116); ALT/SGPT 40 U/L (7.0-40); AST/SGOT 21 U/L (<34); BILIRUBIN,TOTAL 1.6 MG/DL (0.3-1.2); BLOOD UREA NITROGEN 18 MG/DL (9-23); CALCIUM LEVEL 9.2 MG/DL (8.5-10.1); CARBON DIOXIDE LEVEL 24 MMOL/L (20-31); CHLORIDE LEVEL 98 MMOL/L (98-107); CREATININE FOR GFR 0.83 MG/DL (0.70-1.30); GLOMERULAR FILTRATION RATE > 60.0 (>60); GLUCOSE, FASTING 177 MG/DL (60-100); POTASSIUM SERUM 4.4 MMOL/L (3.5-5.1); SODIUM LEVEL 132 MMOL/L (136-145)
[2023-08-21] MEDS: VANCOMYCIN 1000MG/20ML VIAL As Ordered ONE (10:51)
[2023-08-21] MEDS: GENTAMICIN SULF 80MG/2ML VIAL As Ordered ONE (10:52)
[2023-08-21] MEDS ORDERED: LIDOCAINE 2% 100MG/5ML SDV (FOR ANES.) As Ordered ONE (11:16)
[2023-08-21] MEDS ORDERED: propofoL 200 MG/20 ML VIAL As Ordered ONE (11:16)
[2023-08-21] MEDS ORDERED: MIDAZOLAM INJ 2MG/2ML VIAL As Ordered ONE (11:16)
[2023-08-21] MEDS ORDERED: ETOMIDATE INJ 20MG/10ML VIAL As Ordered ONE (11:16)
[2023-08-21] MEDS ORDERED: fentaNYL 100 MCG/2 ML INJECTION As Ordered ONE (11:16)
[2023-08-21] MEDS ORDERED: ONDANSETRON 4MG 2ML VIAL As Ordered ONE (11:24)
[2023-08-21] MEDS ORDERED: PHENYLephrine 500MCG 5ML (100MCG/ML) SYRINGE As Ordered ONE (11:45)
[2023-08-21] MEDS ORDERED: ACETAMINOPHEN 1000MG 100ML IV BAG As Ordered ONE (12:05)
[2023-08-21] MEDS ORDERED: BACITRACIN OINTMENT 30GM TUBE As Ordered ONE (12:15)
[2023-08-21 14:40] VITALS: BP 105/64
[2023-08-21] MEDS: LORazepam 2 MG TAB PO PRN (14:48)
[2023-08-21] MEDS: MAG SULF 1GM/100ML (MAG RUN) 1 GM in IV 1 EA IV ONE (15:22)
[2023-08-21] MEDS: MULTIVITAMIN -ADULT INJECTION 10 ML, THIAMINE INJection 100 MG, FOLIC ACID 1 MG in NS 1... IV ONE (16:00)
[2023-08-21] MEDS ORDERED: LORazepam 2 MG/ML 1ML VIAL IV PRN (18:45)
[2023-08-21] MEDS: OXAZEPAM 15MG CAP PO SCH (18:55)
[2023-08-21 19:10] VITALS: BP 138/94; O2SAT 100
[2023-08-21 20:00] VITALS: BP 144/95; TEMP 98.3; O2SAT 100
[2023-08-21] MEDS: ALPRAZolam 0.25 MG TAB PO PRN (20:35)
[2023-08-21] MEDS: LEVEMIR (INSULIN DETEMIR) 1 UNITS/0.01ML SC SCH (20:35)
[2023-08-21 21:00] VITALS: BP 142/106; O2SAT 97
[2023-08-21] MEDS ORDERED: NICOTINE POLACRILEX 2 MG GUM PO PRN (21:00)
[2023-08-21] MEDS ORDERED: NICOTINE 21MG/24HR 1 EA TRANSDERMAL TD SCH (21:00)
[2023-08-21] MEDS ORDERED: chlordiazePOXIDE 25 MG CAP PO ONE (21:15)
[2023-08-22] MEDS ORDERED: MULTIVITAMINS/MINERALS THERAP 1 TAB PO SCH (09:00)
[2023-08-22] MEDS ORDERED: FOLIC ACID 1MG TAB PO SCH (09:00)
[2023-08-22] MEDS ORDERED: THIAMINE 100 MG TAB PO SCH (09:00)
[2023-08-22] MEDS ORDERED: chlordiazePOXIDE 25 MG CAP PO SCH (09:00)
== END 2023-08-21 21:18 | disposition left against medical advice (07) | DRG 501 ==
LOC: M ED 09:17 → M ED INP 13:41 → M MSPAV 15:15 → M ICU 08-21 13:30
PROVIDERS: ADMIT Hospitalist; ATTEND Internal Medicine Pulmonary Disease
PROC: 0T9B80Z Drainage of Bladder with Drainage Device, Via Natural or Artificial Opening Endoscopic (ICD-10-PCS; 2023-08-21)
PROC: 0VB50ZZ Excision of Scrotum, Open Approach (ICD-10-PCS; 2023-08-21)
PROC: 0V954ZZ Drainage of Scrotum, Percutaneous Endoscopic Approach (ICD-10-PCS; principal; 2023-08-21 10:30)
DX: N50.89 Other specified disorders of the male genital organs (principal); I50.33 Acute on chronic diastolic (congestive) heart failure; I95.89 Other hypotension; I27.20 Pulmonary hypertension, unspecified; E87.1 Hypo-osmolality and hyponatremia; J43.9 Emphysema, unspecified; I11.0 Hypertensive heart disease with heart failure; E78.5 Hyperlipidemia, unspecified; E11.9 Type 2 diabetes mellitus without complications; I34.0 Nonrheumatic mitral (valve) insufficiency; R33.9 Retention of urine, unspecified; F41.9 Anxiety disorder, unspecified; R53.83 Other fatigue; R53.81 Other malaise; R00.0 Tachycardia, unspecified; F10.20 Alcohol dependence, uncomplicated; R53.1 Weakness; E66.9 Obesity, unspecified; F17.290 Nicotine dependence, other tobacco product, uncomplicated; Z79.82 Long term (current) use of aspirin; Z79.84 Long term (current) use of oral hypoglycemic drugs; Z79.899 Other long term (current) drug therapy; Z91.030 Bee allergy status; Z91.041 Radiographic dye allergy status; Z68.34 Body mass index [BMI] 34.0-34.9, adult

== ENCOUNTER 2023-08-23 09:16 | Inpatient (IN) | payer OTHER ==
[~2023-08-23] VITALS: Ht 172.7 cm; Wt 96.3 kg
[2023-08-23] MEDS: MULTIVITAMINS/MINERALS THERAP 1 TAB PO SCH (09:00)
[2023-08-23] MEDS: FOLIC ACID 1MG TAB PO SCH (09:00)
[~2023-08-23 09:16] MED LIST changes: +FUROSEMIDE 40 MG TAB PO SCH; +LISI2.5T9 PO
[2023-08-23] MEDS ORDERED: HYDR50TA70 PO (09:32)
[2023-08-23] MEDS: FUROSEMIDE 20MG/2ML VIAL IV ONE (11:33)
[2023-08-23 11:56] LABS: BASO # 0.1 10^3/uL (0.0-0.2); BASO % 0.5 % (0.0-1.0); EOS # 0.1 10^3/uL (0.0-0.5); EOS % 0.6 % (0.0-3.0); HEMATOCRIT 35.8 % (42.0-52.0); HEMOGLOBIN 11.1 g/dl (13.5-17.5); LYMPH # 1.8 10^3/uL (1.5-5.0); LYMPH % 18.1 % (24.0-44.0); MEAN CORPUSCULAR VOLUME 83.8 fl (80.0-96.0); MONO # 0.8 10^3/uL (0.0-0.8); MONO % 7.6 % (2.0-8.0); NEUTROPHILS # 7.4 10^3/uL (1.5-8.5); PLATELET COUNT, AUTOMATED 223 10^3/uL (150-450); RED BLOOD COUNT 4.27 10^6/uL (4.30-6.10); WHITE BLOOD COUNT 10.2 10^3/uL (4.0-10.0)
[2023-08-23 12:00] LABS: ERYTHROCYTE SEDIMENTATION RATE 26 mm/hr (0-15)
[2023-08-23 12:36] LABS: PROCALCITONIN 0.07 ng/ml
[2023-08-23 12:40] LABS: BLOOD UREA NITROGEN 15 MG/DL (9-23); CALCIUM LEVEL 8.4 MG/DL (8.5-10.1); CARBON DIOXIDE LEVEL 24 MMOL/L (20-31); CHLORIDE LEVEL 101 MMOL/L (98-107); CREATININE FOR GFR 0.71 MG/DL (0.70-1.30); GLOMERULAR FILTRATION RATE > 60.0 (>60); GLUCOSE, FASTING 155 MG/DL (60-100); SODIUM LEVEL 133 MMOL/L (136-145)
[2023-08-23] MEDS ORDERED: VANCOMYCIN HCL 1,000 MG in IV FLUID PLACE HOLDER 1 EA IV STA (14:56)
[2023-08-23] MEDS ORDERED: FURO40TA2 PO (15:18)
[2023-08-23] MEDS ORDERED: HOME MED LIST COMPLETE! XX SCH (15:20)
[2023-08-23] MEDS: VANCOMYCIN HCL 1,000 MG, VIAL MATE ADAPTER 1 EACH in D5W 250 ML IV STA (15:25)
[2023-08-23] MEDS ORDERED: ACETAMINOPHEN TAB 650MG DOSE (2X325MG) PO PRN (16:10)
[2023-08-23] MEDS ORDERED: hydrOXYzine 50 MG TAB PO PRN (16:10)
[2023-08-23] MEDS ORDERED: LORazepam 2 MG TAB PO PRN (16:10)
[2023-08-23] MEDS: NICOTINE 21MG/24HR 1 EA TRANSDERMAL TD SCH (16:25)
[2023-08-23] MEDS ORDERED: GLUCOSE 4 GM CHEW PO PRN (16:45)
[2023-08-23] MEDS ORDERED: GLUCAGON INJ 1MG VIAL SC PRN (16:45)
[2023-08-23] MEDS ORDERED: DEXTROSE 50% 50ML SYRINGE IV PRN (16:45)
[2023-08-23] MEDS: INSULIN LISPRO (NovoLOG) PER UNIT SC SCH ×2 (17:30→21:20)
[2023-08-23] MEDS: THIAMINE 100 MG TAB PO SCH (18:02)
[2023-08-23] MEDS: PIPERACILLIN/TAZOBACTAM SOD 3.375 GM in D5W MINI-BAG PLUS 50 ML IV SCH (18:02)
[2023-08-23 19:09] LABS: ALBUMIN 3.2 G/DL (3.2-5.2); BILIRUBIN,DIRECT 0.7 MG/DL (<0.4); BILIRUBIN,TOTAL 1.7 MG/DL (0.3-1.2); TOTAL PROTEIN 6.4 G/DL (5.7-8.2)
[2023-08-23] MEDS: VANCOMYCIN HCL 1,000 MG, VIAL MATE ADAPTER 1 EACH in D5W 250 ML IV SCH (19:27)
[2023-08-23 21:50] VITALS: BP 109/78; TEMP 97; O2SAT 96
[2023-08-23 22:19] VITALS: BP 109/75; TEMP 97; O2SAT 95
[2023-08-23 22:50] VITALS: BP 109/75
[2023-08-24] VITALS (8 sets, daily range): BP systolic 109–125; BP diastolic 78–89; TEMP 96.8–97.7; O2SAT 95–98
[2023-08-24 06:02] LABS: HEMATOCRIT 35.7 % (42.0-52.0); HEMOGLOBIN 11.3 g/dl (13.5-17.5); MEAN CORPUSCULAR HEMOGLOBIN 26.5 pg (27.0-33.0); MEAN CORPUSCULAR HGB CONC 31.7 g/dl (32.0-36.5); MEAN CORPUSCULAR VOLUME 83.8 fl (80.0-96.0); PLATELET COUNT, AUTOMATED 233 10^3/uL (150-450); RED BLOOD COUNT 4.26 10^6/uL (4.30-6.10); WHITE BLOOD COUNT 10.7 10^3/uL (4.0-10.0)
[2023-08-24 06:34] LABS: ALBUMIN 3.1 G/DL (3.2-5.2); ALKALINE PHOSPHATASE 77 U/L (46-116); ALT/SGPT 47 U/L (7.0-40); AST/SGOT 27 U/L (<34); BILIRUBIN,TOTAL 1.7 MG/DL (0.3-1.2); BLOOD UREA NITROGEN 14 MG/DL (9-23); CALCIUM LEVEL 8.6 MG/DL (8.5-10.1); CARBON DIOXIDE LEVEL 23 MMOL/L (20-31); CHLORIDE LEVEL 100 MMOL/L (98-107); CREATININE FOR GFR 0.71 MG/DL (0.70-1.30); GLOMERULAR FILTRATION RATE > 60.0 (>60); GLUCOSE, FASTING 193 MG/DL (60-100); POTASSIUM SERUM 3.9 MMOL/L (3.5-5.1); SODIUM LEVEL 130 MMOL/L (136-145); TOTAL PROTEIN 6.3 G/DL (5.7-8.2)
[2023-08-24] MEDS: ASPIRIN 81MG ENTERIC TABLET PO SCH (07:56)
[2023-08-24] MEDS: FINASTERIDE 5MG TAB PO SCH (07:56)
[2023-08-24] MEDS: TAMSULOSIN 0.4 MG CAP PO SCH (07:56)
[2023-08-24] MEDS: ATORVASTATIN 20 MG TAB PO SCH (07:56)
[2023-08-24] MEDS: LISINOPRIL *2.5 MG* TAB PO SCH (07:57)
[2023-08-24] MEDS: METOPROLOL SUCC *XL* 12.5MG PER 1/2 TAB (TopROL *XL*) PO SCH (07:57)
[2023-08-24] MEDS: SPIRONOLACTONE 12.5MG PER 1/2 TABLET PO SCH (07:58)
[2023-08-24] MEDS: FUROSEMIDE 40MG/4ML VIAL IV ONE (07:58)
[2023-08-24] MEDS ORDERED: SPIRONOLACTONE 25 MG TAB PO SCH (09:00)
[2023-08-24] MEDS ORDERED: FUROSEMIDE 40 MG TAB PO SCH (09:00)
[2023-08-24] MEDS: METOPROLOL SUCC *XL* 25MG TAB (TopROL *XL*) PO SCH (09:16)
[2023-08-24 09:59] LABS: VANCOMYCIN LEVEL TROUGH 12.4 UG/ML (10.0-20.0)
[2023-08-24] MEDS: LINEZOLID 600MG TABLET (ZYVOX) PO SCH (10:21)
[2023-08-24 14:28] LABS: BLOOD UREA NITROGEN 14 MG/DL (9-23); CARBON DIOXIDE LEVEL 24 MMOL/L (20-31); CHLORIDE LEVEL 100 MMOL/L (98-107); GLOMERULAR FILTRATION RATE > 60.0 (>60); GLUCOSE, FASTING 161 MG/DL (60-100); POTASSIUM SERUM 3.9 MMOL/L (3.5-5.1); SODIUM LEVEL 133 MMOL/L (136-145)
[2023-08-24] MEDS ORDERED: PILL CUTTER 1 EACH XX PRN (16:50)
[2023-08-24] MEDS: MORPHINE 2 MG/ML 1ML VIAL IV PRN (16:54)
[2023-08-24] MEDS: FUROSEMIDE 40MG/4ML VIAL IV SCH (17:01)
[2023-08-24] MEDS: traMADol 50 MG TAB PO PRN (19:36)
[2023-08-25] VITALS (7 sets, daily range): BP systolic 109–164; BP diastolic 78–92; TEMP 97.2–97.7; O2SAT 96–100
[2023-08-25 05:33] LABS: HEMATOCRIT 38.1 % (42.0-52.0); MEAN CORPUSCULAR HEMOGLOBIN 26.4 pg (27.0-33.0); MEAN CORPUSCULAR HGB CONC 31.5 g/dl (32.0-36.5); MEAN CORPUSCULAR VOLUME 83.9 fl (80.0-96.0); PLATELET COUNT, AUTOMATED 220 10^3/uL (150-450); RED BLOOD COUNT 4.54 10^6/uL (4.30-6.10); WHITE BLOOD COUNT 9.6 10^3/uL (4.0-10.0)
[2023-08-25 06:08] LABS: ALBUMIN 3.6 G/DL (3.2-5.2); ALKALINE PHOSPHATASE 86 U/L (46-116); ALT/SGPT 50 U/L (7.0-40); AST/SGOT 35 U/L (<34); BILIRUBIN,TOTAL 1.9 MG/DL (0.3-1.2); BLOOD UREA NITROGEN 15 MG/DL (9-23); CALCIUM LEVEL 8.7 MG/DL (8.5-10.1); CARBON DIOXIDE LEVEL 25 MMOL/L (20-31); CHLORIDE LEVEL 96 MMOL/L (98-107); CREATININE FOR GFR 0.87 MG/DL (0.70-1.30); GLOMERULAR FILTRATION RATE > 60.0 (>60); GLUCOSE, FASTING 187 MG/DL (60-100); POTASSIUM SERUM 4.2 MMOL/L (3.5-5.1); SODIUM LEVEL 132 MMOL/L (136-145); TOTAL PROTEIN 6.9 G/DL (5.7-8.2)
[2023-08-25] MEDS ORDERED: METOPROLOL SUCC *XL* 25MG TAB (TopROL *XL*) PO SCH (09:00)
[2023-08-25] MEDS: METOPROLOL TART 25 MG TABLET PO SCH (09:00)
[2023-08-25 09:30] LABS: INR 1.28; PROTHROMBIN TIME 15.6 SECONDS (12.5-14.5)
[2023-08-25] MEDS: FUROSEMIDE 40MG/4ML VIAL IV SCH (09:38)
[2023-08-26 04:00] VITALS: BP 105/75; TEMP 97.3; O2SAT 97
[2023-08-26 05:53] LABS: HEMATOCRIT 35.9 % (42.0-52.0); HEMOGLOBIN 11.4 g/dl (13.5-17.5); MEAN CORPUSCULAR HEMOGLOBIN 26.4 pg (27.0-33.0); MEAN CORPUSCULAR HGB CONC 31.8 g/dl (32.0-36.5); MEAN CORPUSCULAR VOLUME 83.1 fl (80.0-96.0); PLATELET COUNT, AUTOMATED 205 10^3/uL (150-450); RED BLOOD COUNT 4.32 10^6/uL (4.30-6.10); WHITE BLOOD COUNT 8.3 10^3/uL (4.0-10.0)
[2023-08-26 06:10] VITALS: BP 109/78
[2023-08-26 06:28] LABS: ALBUMIN 3.3 G/DL (3.2-5.2); ALKALINE PHOSPHATASE 82 U/L (46-116); ALT/SGPT 44 U/L (7.0-40); AST/SGOT 27 U/L (<34); BILIRUBIN,TOTAL 1.9 MG/DL (0.3-1.2); BLOOD UREA NITROGEN 17 MG/DL (9-23); CALCIUM LEVEL 8.5 MG/DL (8.5-10.1); CARBON DIOXIDE LEVEL 25 MMOL/L (20-31); CHLORIDE LEVEL 97 MMOL/L (98-107); CREATININE FOR GFR 0.92 MG/DL (0.70-1.30); GLOMERULAR FILTRATION RATE > 60.0 (>60); GLUCOSE, FASTING 141 MG/DL (60-100); POTASSIUM SERUM 4.2 MMOL/L (3.5-5.1); SODIUM LEVEL 131 MMOL/L (136-145); TOTAL PROTEIN 6.3 G/DL (5.7-8.2)
[2023-08-26] MEDS: FUROSEMIDE 100MG/10ML VIAL IV SCH (09:21)
[2023-08-26 12:00] VITALS: BP 108/80; TEMP 97.2; O2SAT 98
[2023-08-26 14:00] VITALS: BP 108/80
[2023-08-26] MEDS: ONDANSETRON 4MG TAB PO PRN (19:36)
[2023-08-26 20:00] VITALS: BP 115/82; TEMP 97.3; O2SAT 99
[2023-08-27] MEDS ORDERED: ONDANSETRON 4MG 2ML VIAL As Ordered ONE (00:39)
[2023-08-27] MEDS: ONDANSETRON 4MG 2ML VIAL IV SCH (00:40)
[2023-08-27 04:00] VITALS: BP 109/78; TEMP 97.5; O2SAT 97
[2023-08-27 05:45] LABS: HEMATOCRIT 37.6 % (42.0-52.0); HEMOGLOBIN 11.6 g/dl (13.5-17.5); MEAN CORPUSCULAR HEMOGLOBIN 25.8 pg (27.0-33.0); MEAN CORPUSCULAR HGB CONC 30.9 g/dl (32.0-36.5); MEAN CORPUSCULAR VOLUME 83.6 fl (80.0-96.0); PLATELET COUNT, AUTOMATED 207 10^3/uL (150-450); WHITE BLOOD COUNT 8.9 10^3/uL (4.0-10.0)
[2023-08-27 06:06] VITALS: BP 110/75
[2023-08-27 06:13] LABS: ALBUMIN 3.2 G/DL (3.2-5.2); ALKALINE PHOSPHATASE 89 U/L (46-116); ALT/SGPT 73 U/L (7.0-40); AST/SGOT 54 U/L (<34); BLOOD UREA NITROGEN 21 MG/DL (9-23); CALCIUM LEVEL 8.7 MG/DL (8.5-10.1); CARBON DIOXIDE LEVEL 25 MMOL/L (20-31); CHLORIDE LEVEL 99 MMOL/L (98-107); CREATININE FOR GFR 0.99 MG/DL (0.70-1.30); GLOMERULAR FILTRATION RATE > 60.0 (>60); GLUCOSE, FASTING 154 MG/DL (60-100); POTASSIUM SERUM 4.3 MMOL/L (3.5-5.1); SODIUM LEVEL 132 MMOL/L (136-145); TOTAL PROTEIN 6.3 G/DL (5.7-8.2)
[2023-08-27] MEDS: ONDANSETRON 4MG 2ML VIAL IV ONE (07:55)
[2023-08-27 12:00] VITALS: BP 111/80; TEMP 97.3; O2SAT 99
[2023-08-27 14:02] VITALS: BP 112/84
[2023-08-27] MEDS: FUROSEMIDE 100MG/10ML VIAL IV SCH (18:02)
[2023-08-27] MEDS: SPIRONOLACTONE 25 MG TAB PO SCH (18:03)
[2023-08-27 20:00] VITALS: BP 108/76; TEMP 97.3; O2SAT 97
[2023-08-27] MEDS: PANTOPRAZOLE 40MG TAB (PROTONIX) PO SCH (20:10)
[2023-08-27 22:00] VITALS: BP 112/84
[2023-08-27] MEDS: HEPARIN SOD (PORCINE) 5000UNITS/ML 1ML VIAL/SYRINGE SQ SCH (22:20)
[2023-08-28 04:00] VITALS: BP 112/80; TEMP 97.2; O2SAT 100
[2023-08-28 05:57] LABS: HEMATOCRIT 37.9 % (42.0-52.0); HEMOGLOBIN 11.7 g/dl (13.5-17.5); MEAN CORPUSCULAR HEMOGLOBIN 25.9 pg (27.0-33.0); MEAN CORPUSCULAR HGB CONC 30.9 g/dl (32.0-36.5); MEAN CORPUSCULAR VOLUME 83.8 fl (80.0-96.0); PLATELET COUNT, AUTOMATED 200 10^3/uL (150-450); RED BLOOD COUNT 4.52 10^6/uL (4.30-6.10)
[2023-08-28 06:17] LABS: ALBUMIN 3.3 G/DL (3.2-5.2); ALKALINE PHOSPHATASE 102 U/L (46-116); ALT/SGPT 230 U/L (7.0-40); AST/SGOT 189 U/L (<34); BILIRUBIN,TOTAL 2.3 MG/DL (0.3-1.2); BLOOD UREA NITROGEN 24 MG/DL (9-23); CALCIUM LEVEL 8.4 MG/DL (8.5-10.1); CARBON DIOXIDE LEVEL 25 MMOL/L (20-31); CHLORIDE LEVEL 96 MMOL/L (98-107); CREATININE FOR GFR 1.13 MG/DL (0.70-1.30); GLOMERULAR FILTRATION RATE > 60.0 (>60); GLUCOSE, FASTING 138 MG/DL (60-100); POTASSIUM SERUM 3.9 MMOL/L (3.5-5.1); SODIUM LEVEL 131 MMOL/L (136-145); TOTAL PROTEIN 6.6 G/DL (5.7-8.2)
[2023-08-28 12:00] VITALS: BP 111/78; TEMP 97.3; O2SAT 99
[2023-08-28] MEDS: VANICREAM MOISTURIZING SKIN CREAM 113GM TUBE TOP SCH (12:23)
[2023-08-28] MEDS: FUROSEMIDE 100MG/10ML VIAL IV SCH (13:50)
[2023-08-28 14:00] VITALS: BP 111/78
[2023-08-28] MEDS ORDERED: oxyBUTYnin 5 MG TAB PO PRN (14:40)
[2023-08-28] MEDS: DOCUSATE SODIUM 100MG CAPSULE PO SCH (15:10)
[2023-08-28] MEDS: ONDANSETRON 4MG 2ML VIAL IV ONE (19:58)
[2023-08-28] MEDS: SENNA 8.6 MG TAB (SENOKOT) PO SCH (19:59)
[2023-08-28 20:00] VITALS: BP 108/76; TEMP 97.3; O2SAT 100
[2023-08-28] MEDS ORDERED: SUMAtriptan SUCCINATE 6MG/0.5ML VIAL SC ONE (20:00)
[2023-08-28 20:46] LABS: CK-MB VALUE MASS 2.7 NG/ML (<3.6)
[2023-08-28 20:50] LABS: MB/CK RELATIVE INDEX 1.75 (< OR =4)
[2023-08-28 22:00] VITALS: BP 110/64
[2023-08-29 04:00] VITALS: BP 102/59; TEMP 97.3; O2SAT 98
[2023-08-29 05:38] LABS: HEMATOCRIT 36.3 % (42.0-52.0); HEMOGLOBIN 11.6 g/dl (13.5-17.5); MEAN CORPUSCULAR HEMOGLOBIN 26.4 pg (27.0-33.0); MEAN CORPUSCULAR VOLUME 82.7 fl (80.0-96.0); PLATELET COUNT, AUTOMATED 186 10^3/uL (150-450); RED BLOOD COUNT 4.39 10^6/uL (4.30-6.10)
[2023-08-29 06:00] VITALS: BP 111/64
[2023-08-29 06:01] LABS: ALBUMIN 3.3 G/DL (3.2-5.2); ALKALINE PHOSPHATASE 108 U/L (46-116); ALT/SGPT 237 U/L (7.0-40); AST/SGOT 142 U/L (<34); BILIRUBIN,TOTAL 1.7 MG/DL (0.3-1.2); BLOOD UREA NITROGEN 24 MG/DL (9-23); CALCIUM LEVEL 8.5 MG/DL (8.5-10.1); CARBON DIOXIDE LEVEL 27 MMOL/L (20-31); CHLORIDE LEVEL 96 MMOL/L (98-107); CREATININE FOR GFR 1.21 MG/DL (0.70-1.30); GLOMERULAR FILTRATION RATE > 60.0 (>60); GLUCOSE, FASTING 173 MG/DL (60-100); POTASSIUM SERUM 3.7 MMOL/L (3.5-5.1); SODIUM LEVEL 130 MMOL/L (136-145); TOTAL PROTEIN 6.5 G/DL (5.7-8.2)
[2023-08-29 12:00] VITALS: BP 114/81; TEMP 97.2; O2SAT 99
[2023-08-29 20:05] VITALS: BP 114/82; TEMP 97.2; O2SAT 99
[2023-08-29 20:39] VITALS: BP 114/82
[2023-08-30 04:10] VITALS: BP 102/68; TEMP 97.5; O2SAT 97
[2023-08-30 05:39] LABS: HEMATOCRIT 35.5 % (42.0-52.0); HEMOGLOBIN 11.5 g/dl (13.5-17.5); MEAN CORPUSCULAR HEMOGLOBIN 26.7 pg (27.0-33.0); MEAN CORPUSCULAR HGB CONC 32.4 g/dl (32.0-36.5); MEAN CORPUSCULAR VOLUME 82.4 fl (80.0-96.0); PLATELET COUNT, AUTOMATED 153 10^3/uL (150-450); RED BLOOD COUNT 4.31 10^6/uL (4.30-6.10); WHITE BLOOD COUNT 5.7 10^3/uL (4.0-10.0)
[2023-08-30 06:15] LABS: ALBUMIN 3.2 G/DL (3.2-5.2); ALKALINE PHOSPHATASE 100 U/L (46-116); ALT/SGPT 219 U/L (7.0-40); AST/SGOT 111 U/L (<34); BILIRUBIN,TOTAL 1.7 MG/DL (0.3-1.2); BLOOD UREA NITROGEN 20 MG/DL (9-23); CALCIUM LEVEL 8.1 MG/DL (8.5-10.1); CARBON DIOXIDE LEVEL 29 MMOL/L (20-31); CHLORIDE LEVEL 97 MMOL/L (98-107); CREATININE FOR GFR 1.18 MG/DL (0.70-1.30); GLOMERULAR FILTRATION RATE > 60.0 (>60); GLUCOSE, FASTING 143 MG/DL (60-100); POTASSIUM SERUM 3.7 MMOL/L (3.5-5.1); SODIUM LEVEL 131 MMOL/L (136-145); TOTAL PROTEIN 6.3 G/DL (5.7-8.2)
[2023-08-30] MEDS: SPIRONOLACTONE 50 MG TAB PO SCH (08:16)
[2023-08-30 08:17] VITALS: BP 99/63
[2023-08-30] MEDS ORDERED: TORSEMIDE (DEMADEX) 50 MG PER 1/2 TAB PO SCH (10:30)
[2023-08-30] MEDS ORDERED: FUROSEMIDE injection 250 MG in D5W 225 ML IV SCH (12:00)
[2023-08-30] MEDS ORDERED: LINE1TAB6 PO (12:21)
== END 2023-08-30 10:38 | disposition left against medical advice (07) | DRG 194 ==
LOC: M ED 09:16 → M ED INP 17:42 → M MSPAV 21:50
PROVIDERS: ADMIT Internal Medicine; ATTEND Internal Medicine Nephrology
PROC: B246ZZZ Ultrasonography of Right and Left Heart (ICD-10-PCS; principal; 2023-08-26)
DX: I11.0 Hypertensive heart disease with heart failure (principal); I27.20 Pulmonary hypertension, unspecified; E87.1 Hypo-osmolality and hyponatremia; E11.9 Type 2 diabetes mellitus without complications; D64.9 Anemia, unspecified; N32.89 Other specified disorders of bladder; I95.9 Hypotension, unspecified; K70.31 Alcoholic cirrhosis of liver with ascites; R33.9 Retention of urine, unspecified; E78.5 Hyperlipidemia, unspecified; I34.0 Nonrheumatic mitral (valve) insufficiency; N50.82 Scrotal pain; N50.89 Other specified disorders of the male genital organs; R74.01 Elevation of levels of liver transaminase levels; Z91.013 Allergy to seafood; F10.10 Alcohol abuse, uncomplicated; Z88.8 Allergy status to other drugs, medicaments and biological substances; F17.290 Nicotine dependence, other tobacco product, uncomplicated; R31.9 Hematuria, unspecified; Z79.82 Long term (current) use of aspirin; Z79.84 Long term (current) use of oral hypoglycemic drugs; Z79.899 Other long term (current) drug therapy; Z91.041 Radiographic dye allergy status; I50.43 Acute on chronic combined systolic (congestive) and diastolic (congestive) heart failure

== ENCOUNTER 2023-09-17 11:24 | Emergency (ER) | payer OTHER, SELFPAY ==
[~2023-09-17] VITALS: Ht 167.6 cm; Wt 105.5 kg
[~2023-09-17 11:24] MED LIST changes: +FURO40TA2 PO; -FUROSEMIDE 40 MG TAB PO SCH; +HYDR50TA70 PO; +LINE1TAB6 PO
[2023-09-17 11:37] VITALS: BP 111/69; TEMP 96.7; O2SAT 100
[2023-09-17 12:29] LABS: VENOUS BASE EXCESS -2.4 (-2.0-2.0); VENOUS O2 SATURATION 33.1 % (60.0-80.0); VENOUS PARTIAL PRESSURE O2 24.5 mmHg (30.0-50.0); VENOUS PH 7.392 UNITS (7.330-7.430); VENOUS TOTAL CO2 23.1 MMOL/L (24.0-28.0)
[2023-09-17 12:33] LABS: BASO # 0.1 10^3/uL (0.0-0.2); BASO % 0.7 % (0.0-1.0); EOS # 0.1 10^3/uL (0.0-0.5); EOS % 0.6 % (0.0-3.0); HEMATOCRIT 36.2 % (42.0-52.0); HEMOGLOBIN 11.4 g/dl (13.5-17.5); LYMPH # 2.2 10^3/uL (1.5-5.0); LYMPH % 21.2 % (24.0-44.0); MEAN CORPUSCULAR HGB CONC 31.5 g/dl (32.0-36.5); MEAN CORPUSCULAR VOLUME 82.5 fl (80.0-96.0); MONO # 0.7 10^3/uL (0.0-0.8); MONO % 6.7 % (2.0-8.0); NEUTROPHILS # 7.3 10^3/uL (1.5-8.5); NEUTROPHILS % 70.5 % (36.0-66.0); PLATELET COUNT, AUTOMATED 340 10^3/uL (150-450); RED BLOOD COUNT 4.39 10^6/uL (4.30-6.10); WHITE BLOOD COUNT 10.3 10^3/uL (4.0-10.0)
[2023-09-17 12:41] LABS: ALBUMIN 3.4 G/DL (3.2-5.2); ALKALINE PHOSPHATASE 116 U/L (46-116); ALT/SGPT 72 U/L (7.0-40); AST/SGOT 56 U/L (<34); BILIRUBIN,TOTAL 1.3 MG/DL (0.3-1.2); BLOOD UREA NITROGEN 39 MG/DL (9-23); CALCIUM LEVEL 8.9 MG/DL (8.5-10.1); CARBON DIOXIDE LEVEL 24 MMOL/L (20-31); CHLORIDE LEVEL 96 MMOL/L (98-107); CK-MB VALUE MASS 4.6 NG/ML (<3.6); CPK CREATINE PHOSPHOKINASE 213 U/L (46-171); CREATININE FOR GFR 0.98 MG/DL (0.70-1.30); GLOMERULAR FILTRATION RATE > 60.0 (>60); GLUCOSE, FASTING 202 MG/DL (60-100); MB/CK RELATIVE INDEX 2.15 (< OR =4); POTASSIUM SERUM 4.7 MMOL/L (3.5-5.1); SODIUM LEVEL 128 MMOL/L (136-145); TOTAL PROTEIN 7.1 G/DL (5.7-8.2)
[2023-09-17 12:43] LABS: INR 1.48; PROTHROMBIN TIME 17.4 SECONDS (12.5-14.5)
[2023-09-17 12:44] LABS: THYROID STIMULATING HORMONE 3.418 uIU/ML (0.55-4.78)
[2023-09-17] MEDS: FUROSEMIDE 100MG/10ML VIAL IV ONE (12:59)
== END 2023-09-17 13:28 | disposition left against medical advice (07) ==
LOC: M ED 11:24 → EDBD 11:24 → M ED 13:28
DX: I50.22 Chronic systolic (congestive) heart failure (principal); R00.0 Tachycardia, unspecified; I45.81 Long QT syndrome; E11.9 Type 2 diabetes mellitus without complications; E78.5 Hyperlipidemia, unspecified; J44.9 Chronic obstructive pulmonary disease, unspecified; Z87.891 Personal history of nicotine dependence; Z88.8 Allergy status to other drugs, medicaments and biological substances; Z91.013 Allergy to seafood; Z91.041 Radiographic dye allergy status; Z79.1 Long term (current) use of non-steroidal anti-inflammatories (NSAID); Z79.84 Long term (current) use of oral hypoglycemic drugs; Z79.899 Other long term (current) drug therapy; Z53.9 Procedure and treatment not carried out, unspecified reason
CPT/HCPCS: 71045; 80053; 82550; 82553; 82803; 83605; 83880; 84443; 84484; 85025; 85610; 87040; 93005; 93041; 94760; 96374; 99284; J1940

== ENCOUNTER → 2023-10-06 | Outpatient (CLI) | payer MEDICAID, OTHER, SELFPAY ==
[2023-10-06 15:25] LABS: ALBUMIN 3.6 G/DL (3.2-5.2); ALKALINE PHOSPHATASE 106 U/L (46-116); ALT/SGPT 29 U/L (7.0-40); AST/SGOT 16 U/L (<34); BILIRUBIN,TOTAL 1.3 MG/DL (0.3-1.2); BLOOD UREA NITROGEN 11 MG/DL (9-23); CALCIUM LEVEL 9.2 MG/DL (8.5-10.1); CARBON DIOXIDE LEVEL 26 MMOL/L (20-31); CHLORIDE LEVEL 101 MMOL/L (98-107); CREATININE FOR GFR 1.05 MG/DL (0.70-1.30); GLOMERULAR FILTRATION RATE > 60.0 (>60); GLUCOSE, FASTING 113 MG/DL (60-100); POTASSIUM SERUM 3.8 MMOL/L (3.5-5.1); SODIUM LEVEL 135 MMOL/L (136-145)
== END ==
LOC: M PLALAB 12:07
PROVIDERS: ATTEND Nurse Practitioner Adult Health
DX: I25.10 Atherosclerotic heart disease of native coronary artery without angina pectoris (principal); I34.0 Nonrheumatic mitral (valve) insufficiency; E11.9 Type 2 diabetes mellitus without complications

== ENCOUNTER → 2023-10-10 | Outpatient (CLI) | payer MEDICAID, OTHER ==
[2023-10-10 14:00] LABS: BASO # 0.1 10^3/uL (0.0-0.2); BASO % 0.9 % (0.0-1.0); EOS # 0.1 10^3/uL (0.0-0.5); EOS % 1.8 % (0.0-3.0); HEMATOCRIT 32.9 % (42.0-52.0); HEMOGLOBIN 9.9 g/dl (13.5-17.5); LYMPH # 1.7 10^3/uL (1.5-5.0); LYMPH % 26.1 % (24.0-44.0); MEAN CORPUSCULAR HEMOGLOBIN 24.8 pg (27.0-33.0); MEAN CORPUSCULAR HGB CONC 30.1 g/dl (32.0-36.5); MEAN CORPUSCULAR VOLUME 82.5 fl (80.0-96.0); MONO # 0.6 10^3/uL (0.0-0.8); MONO % 8.4 % (2.0-8.0); NEUTROPHILS # 4.1 10^3/uL (1.5-8.5); NEUTROPHILS % 62.3 % (36.0-66.0); PLATELET COUNT, AUTOMATED 217 10^3/uL (150-450); RED BLOOD COUNT 3.99 10^6/uL (4.30-6.10); WHITE BLOOD COUNT 6.5 10^3/uL (4.0-10.0)
[2023-10-10 14:15] LABS: ERYTHROCYTE SEDIMENTATION RATE 16 mm/hr (0-15)
[2023-10-10 14:21] LABS: ALBUMIN 3.5 G/DL (3.2-5.2); ALKALINE PHOSPHATASE 101 U/L (46-116); ALT/SGPT 21 U/L (7.0-40); AST/SGOT 16 U/L (<34); BILIRUBIN,TOTAL 1.9 MG/DL (0.3-1.2); BLOOD UREA NITROGEN 10 MG/DL (9-23); CALCIUM LEVEL 8.5 MG/DL (8.5-10.1); CARBON DIOXIDE LEVEL 26 MMOL/L (20-31); CHLORIDE LEVEL 100 MMOL/L (98-107); CREATININE FOR GFR 0.71 MG/DL (0.70-1.30); GLOMERULAR FILTRATION RATE > 60.0 (>60); GLUCOSE, FASTING 118 MG/DL (60-100); POTASSIUM SERUM 3.8 MMOL/L (3.5-5.1); SODIUM LEVEL 133 MMOL/L (136-145); TOTAL PROTEIN 6.7 G/DL (5.7-8.2)
== END ==
LOC: M PLALAB 09:32
PROVIDERS: ATTEND Nurse Practitioner Family
DX: L53.9 Erythematous condition, unspecified (principal)

== ENCOUNTER 2024-01-26 05:11 | Emergency (ER) | payer MEDICAID, OTHER ==
[~2024-01-26] VITALS: Ht 172.7 cm; Wt 89.3 kg
[~2024-01-26 05:11] MED LIST changes: +GABA-1172 PO; -GABA-282 PO
[2024-01-26 05:17] VITALS: BP 128/88; TEMP 97.3; O2SAT 99
== END 2024-01-26 05:45 | disposition left against medical advice (07) ==
LOC: M ED 05:11
DX: Z53.21 Procedure and treatment not carried out due to patient leaving prior to being seen by health care provider (principal)

== ENCOUNTER 2024-02-02 23:01 | Emergency (ER) | payer OTHER ==
[~2024-02-02] VITALS: Ht 172.7 cm; Wt 84.5 kg
[2024-02-02 23:47] LABS: BASO # 0.1 10^3/uL (0.0-0.2); BASO % 0.7 % (0.0-1.0); EOS # 0.1 10^3/uL (0.0-0.5); EOS % 0.6 % (0.0-3.0); HEMATOCRIT 37.5 % (42.0-52.0); HEMOGLOBIN 11.9 g/dl (13.5-17.5); LYMPH # 2.4 10^3/uL (1.5-5.0); LYMPH % 28.2 % (24.0-44.0); MEAN CORPUSCULAR HEMOGLOBIN 25.1 pg (27.0-33.0); MEAN CORPUSCULAR HGB CONC 31.7 g/dl (32.0-36.5); MEAN CORPUSCULAR VOLUME 79.1 fl (80.0-96.0); MONO # 0.8 10^3/uL (0.0-0.8); NEUTROPHILS # 5.1 10^3/uL (1.5-8.5); NEUTROPHILS % 61.3 % (36.0-66.0); PLATELET COUNT, AUTOMATED 284 10^3/uL (150-450); RED BLOOD COUNT 4.74 10^6/uL (4.30-6.10); WHITE BLOOD COUNT 8.3 10^3/uL (4.0-10.0)
[2024-02-03 00:18] LABS: ALBUMIN 3.5 G/DL (3.2-5.2); ALKALINE PHOSPHATASE 93 U/L (40-129); ALT/SGPT 102 U/L (7.0-40); AST/SGOT 91 U/L (<34); BILIRUBIN,DIRECT 0.7 MG/DL (<0.4); BILIRUBIN,TOTAL 1.7 MG/DL (0.3-1.2); BLOOD UREA NITROGEN 16 MG/DL (9-23); CALCIUM LEVEL 9.1 MG/DL (8.5-10.1); CARBON DIOXIDE LEVEL 22 MMOL/L (20-31); CHLORIDE LEVEL 97 MMOL/L (98-107); CREATININE FOR GFR 0.78 MG/DL (0.70-1.30); GLOMERULAR FILTRATION RATE > 60.0 (>56); GLUCOSE, FASTING 158 MG/DL (60-100); POTASSIUM SERUM 3.8 MMOL/L (3.5-5.1); SODIUM LEVEL 130 MMOL/L (136-145); TOTAL PROTEIN 7.2 G/DL (5.7-8.2)
[2024-02-03] MEDS: ASPIRIN 325 MG TAB PO ONE (00:57)
[2024-02-03 01:39] LABS: CK-MB VALUE MASS 2.5 NG/ML (<3.6)
[2024-02-03 01:41] LABS: MB/CK RELATIVE INDEX 1.86 (< OR =4)
[2024-02-03 01:56] LABS: CK-MB VALUE MASS 2.3 NG/ML (<3.6)
[2024-02-03 01:57] LABS: CPK CREATINE PHOSPHOKINASE 142 U/L (46-171); MB/CK RELATIVE INDEX 1.61 (< OR =4)
[2024-02-03] MEDS: FUROSEMIDE 40MG/4ML VIAL IV ONE (03:04)
[2024-02-03 04:16] VITALS: BP 127/86; TEMP 98; O2SAT 98
[2024-02-03 04:46] VITALS: O2SAT 95
== END 2024-02-03 05:10 | disposition home or self-care (01) ==
LOC: M ED 23:01 → EDBD 23:01 → M ED 02-03 05:10
DX: R06.02 Shortness of breath (principal); I50.22 Chronic systolic (congestive) heart failure; R00.0 Tachycardia, unspecified; E78.5 Hyperlipidemia, unspecified; N40.0 Benign prostatic hyperplasia without lower urinary tract symptoms; E11.9 Type 2 diabetes mellitus without complications; I11.9 Hypertensive heart disease without heart failure; Z88.8 Allergy status to other drugs, medicaments and biological substances; Z91.041 Radiographic dye allergy status; Z91.013 Allergy to seafood; Z79.1 Long term (current) use of non-steroidal anti-inflammatories (NSAID); Z79.84 Long term (current) use of oral hypoglycemic drugs; Z79.899 Other long term (current) drug therapy
CPT/HCPCS: 71045; 71250; 80048; 80076; 82550; 82553; 83880; 84484; 85025; 87486; 87581; 87633; 87798; 93005; 93041; 94760; 96374; 99285; 99396; J1940

== ENCOUNTER 2024-03-11 06:47 | Inpatient (IN) | payer OTHER ==
[~2024-03-11] VITALS: Ht 170.2 cm; Wt 78.0 kg
[2024-03-11 07:28] LABS: BASO # 0.1 10^3/uL (0.0-0.2); BASO % 1.4 % (0.0-1.0); EOS # 0.1 10^3/uL (0.0-0.5); EOS % 1.5 % (0.0-3.0); HEMATOCRIT 38.9 % (42.0-52.0); HEMOGLOBIN 11.9 g/dl (13.5-17.5); LYMPH # 1.8 10^3/uL (1.5-5.0); LYMPH % 23.8 % (24.0-44.0); MEAN CORPUSCULAR HEMOGLOBIN 24.9 pg (27.0-33.0); MEAN CORPUSCULAR HGB CONC 30.6 g/dl (32.0-36.5); MEAN CORPUSCULAR VOLUME 81.4 fl (80.0-96.0); MONO # 0.7 10^3/uL (0.0-0.8); MONO % 9.7 % (2.0-8.0); NEUTROPHILS # 4.7 10^3/uL (1.5-8.5); NEUTROPHILS % 63.3 % (36.0-66.0); PLATELET COUNT, AUTOMATED 240 10^3/uL (150-450); RED BLOOD COUNT 4.78 10^6/uL (4.30-6.10); WHITE BLOOD COUNT 7.4 10^3/uL (4.0-10.0)
[2024-03-11] MEDS: FUROSEMIDE 40MG/4ML VIAL IV ONE (07:55)
[2024-03-11 08:00] LABS: BLOOD UREA NITROGEN 11 MG/DL (9-23); CALCIUM LEVEL 8.6 MG/DL (8.5-10.1); CARBON DIOXIDE LEVEL 26 MMOL/L (20-31); CHLORIDE LEVEL 98 MMOL/L (98-107); CK-MB VALUE MASS 2.5 NG/ML (<3.6); CPK CREATINE PHOSPHOKINASE 133 U/L (46-171); CREATININE FOR GFR 0.82 MG/DL (0.70-1.30); GLOMERULAR FILTRATION RATE > 60.0 (>56); GLUCOSE, FASTING 163 MG/DL (60-100); MB/CK RELATIVE INDEX 1.87 (< OR =4); POTASSIUM SERUM 4.1 MMOL/L (3.5-5.1); SODIUM LEVEL 135 MMOL/L (136-145)
[2024-03-11 08:31] LABS: ALBUMIN 3.3 G/DL (3.2-5.2); ALKALINE PHOSPHATASE 105 U/L (40-129); ALT/SGPT 16 U/L (7.0-40); AST/SGOT 18 U/L (<34); BILIRUBIN,DIRECT 0.6 MG/DL (<0.4); BILIRUBIN,TOTAL 1.6 MG/DL (0.3-1.2); TOTAL PROTEIN 6.9 G/DL (5.7-8.2)
[2024-03-11] MEDS ORDERED: ENTRESTO 24-26MG TABLET (SACUBITRIL/VALSARTAN) PO SCH (09:00)
[2024-03-11] MEDS ORDERED: SPIRONOLACTONE 25 MG TAB PO SCH (09:00)
[2024-03-11 09:07] LABS: CK-MB VALUE MASS 2.5 NG/ML (<3.6)
[2024-03-11] MEDS ORDERED: THIA100T22 PO (10:19)
[2024-03-11] MEDS ORDERED: ENTR1TAB PO (10:19)
[2024-03-11] MEDS ORDERED: HOME MED LIST COMPLETE! XX SCH (10:20)
[2024-03-11] MEDS ORDERED: DEXTROSE 50% 50ML SYRINGE IV PRN (10:45)
[2024-03-11] MEDS ORDERED: GLUCOSE 4 GM CHEW PO PRN (10:45)
[2024-03-11] MEDS ORDERED: GLUCAGON INJ 1MG VIAL SC PRN (10:45)
[2024-03-11 11:12] LABS: MAGNESIUM LEVEL 1.8 MG/DL (1.8-2.4)
[2024-03-11] MEDS: ASPIRIN 81MG ENTERIC TABLET PO SCH (11:33)
[2024-03-11] MEDS: ATORVASTATIN 20 MG TAB PO SCH (11:34)
[2024-03-11] MEDS: THIAMINE 100 MG TAB PO SCH (11:34)
[2024-03-11] MEDS: FINASTERIDE 5MG TAB PO SCH (11:34)
[2024-03-11] MEDS: METOPROLOL TART 50 MG TAB PO SCH (11:35)
[2024-03-11] MEDS: DAPAGLIFLOZIN PROPANEDIOL 10MG TABLET (FARXIGA) PO SCH (11:36)
[2024-03-11 11:42] LABS: INR 1.16; PARTIAL THROMBOPLASTIN TIME 32.3 SECONDS (24.8-34.2); PROTHROMBIN TIME 15.1 SECONDS (12.5-14.5)
[2024-03-11 12:48] VITALS: BP 103/72; TEMP 97.9; O2SAT 96
[2024-03-11] MEDS: SCOPOLAMINE 1MG TRANSDERMAL PATCH TOP SCH (13:16)
[2024-03-11] MEDS: PROCHLORPERAZINE 10MG 2ML VIAL IV PRN (13:16)
[2024-03-11] MEDS: INSULIN LISPRO (NovoLOG) PER UNIT SC SCH ×2 (13:17→20:47)
[2024-03-11] MEDS: RIVAROXABAN 10MG TAB (XARELTO) PO SCH (13:23)
[2024-03-11] MEDS ORDERED: ACETAMINOPHEN 500 MG TAB PO PRN (14:10)
[2024-03-11] MEDS: FUROSEMIDE 40MG/4ML VIAL IV SCH (17:29)
[2024-03-11 17:33] VITALS: BP 128/87
[2024-03-11 18:37] LABS: BLOOD UREA NITROGEN 15 MG/DL (9-23); CALCIUM LEVEL 9.1 MG/DL (8.5-10.1); CARBON DIOXIDE LEVEL 22 MMOL/L (20-31); CHLORIDE LEVEL 99 MMOL/L (98-107); CREATININE FOR GFR 0.82 MG/DL (0.70-1.30); GLOMERULAR FILTRATION RATE > 60.0 (>56); GLUCOSE, FASTING 193 MG/DL (60-100); MAGNESIUM LEVEL 2.2 MG/DL (1.8-2.4); POTASSIUM SERUM 3.8 MMOL/L (3.5-5.1); SODIUM LEVEL 135 MMOL/L (136-145)
[2024-03-11 20:11] VITALS: BP 127/87; TEMP 97.3; O2SAT 96
[2024-03-11] MEDS: RAMELTEON 8 MG TAB (ROZEREM) PO ONE (22:05)
[2024-03-12] VITALS (14 sets, daily range): BP systolic 97–148; BP diastolic 60–103; TEMP 97.5–98.6; O2SAT 92–99
[2024-03-12] MEDS: CEPACOL LOZENGE PO PRN (00:42)
[2024-03-12 02:26] LABS: ABG BASE EXCESS -3.6 (-2.0-2.0); ABG HCO3 19.6 MMOL/L (22.0-26.0); ABG O2 SATURATION 95.5 % (95.0-99.0); ABG PARTIAL PRESSURE CO2 30.2 mmHg (35.0-45.0); ABG PARTIAL PRESSURE O2 80.9 mmHg (75.0-100.0); ABG STANDARD HCO3 21.5 MMOL/L. (22.0-26.0); ABG TOTAL CO2 20.6 MMOL/L (22.0-29.0); ABG pH (ARTERIAL) 7.431 UNITS (7.350-7.450)
[2024-03-12 03:20] LABS: BASO # 0.1 10^3/uL (0.0-0.2); BASO % 0.4 % (0.0-1.0); EOS % 0.2 % (0.0-3.0); HEMATOCRIT 39.2 % (42.0-52.0); HEMOGLOBIN 12.1 g/dl (13.5-17.5); LYMPH % 16.8 % (24.0-44.0); MEAN CORPUSCULAR HEMOGLOBIN 24.7 pg (27.0-33.0); MEAN CORPUSCULAR HGB CONC 30.9 g/dl (32.0-36.5); MONO % 8.2 % (2.0-8.0); NEUTROPHILS # 8.8 10^3/uL (1.5-8.5); PLATELET COUNT, AUTOMATED 334 10^3/uL (150-450); WHITE BLOOD COUNT 11.9 10^3/uL (4.0-10.0)
[2024-03-12 03:45] LABS: ETHYL ALCOHOL (ETHANOL) < 0.003 % (0.000-0.010)
[2024-03-12 03:49] LABS: BLOOD UREA NITROGEN 20 MG/DL (9-23); CALCIUM LEVEL 9.5 MG/DL (8.5-10.1); CARBON DIOXIDE LEVEL 22 MMOL/L (20-31); CHLORIDE LEVEL 98 MMOL/L (98-107); GLOMERULAR FILTRATION RATE > 60.0 (>56); GLUCOSE, FASTING 108 MG/DL (60-100); MAGNESIUM LEVEL 2.1 MG/DL (1.8-2.4); POTASSIUM SERUM 4.6 MMOL/L (3.5-5.1); SODIUM LEVEL 134 MMOL/L (136-145)
[2024-03-12] MEDS: FUROSEMIDE 40MG/4ML VIAL IV ONE (03:49)
[2024-03-12] MEDS: HALOPERIDOL LACTATE 5MG/ML VIAL IV ONE (04:20)
[2024-03-12 04:49] LABS: KETONE, URINE AUTO RFX NEGATIVE (NEGATIVE); LEUKOCYTE ESTERASE UR AUTO RFX TRACE (NEGATIVE); NITRITE, URINE AUTO RFX NEGATIVE (NEGATIVE)
[2024-03-12 04:52] LABS: PROCALCITONIN 0.16 ng/ml
[2024-03-12 05:02] LABS: AMPHETAMINES LEVEL URINE NEGATIVE (NEGATIVE); BARBITURATES URINE NEGATIVE (NEGATIVE); BENZODIAZEPINES URINE NEGATIVE (NEGATIVE); CANNABINOIDS URINE NEGATIVE (NEGATIVE); COCAINE METABOLITE URINE NEGATIVE (NEGATIVE); METHADONE URINE NEGATIVE (NEGATIVE); OPIATES URINE NEGATIVE (NEGATIVE); PHENCYCLIDINE URINE NEGATIVE (NEGATIVE)
[2024-03-12] MEDS: cefTRIAXone SOD 1 GM in DEXTROSE 5% (D5W) ADV/MINI-BAG 50 ML IV SCH (05:06)
[2024-03-12] MEDS: DOXYCYCLINE HYCLATE 100 MG in DEXTROSE 5% (D5W) MINI-BAG PLU 100 ML IV SCH (05:36)
[2024-03-12 05:42] LABS: HEMATOCRIT 34.4 % (42.0-52.0); HEMOGLOBIN 10.9 g/dl (13.5-17.5); MEAN CORPUSCULAR HEMOGLOBIN 24.9 pg (27.0-33.0); MEAN CORPUSCULAR HGB CONC 31.7 g/dl (32.0-36.5); MEAN CORPUSCULAR VOLUME 78.7 fl (80.0-96.0); RED BLOOD COUNT 4.37 10^6/uL (4.30-6.10)
[2024-03-12 05:54] LABS: PLATELET COUNT, AUTOMATED 228 10^3/uL (150-450)
[2024-03-12] MEDS: LORazepam 2 MG/ML 1ML VIAL IV STA ×2 (06:32→21:46)
[2024-03-12] MEDS: LORazepam 2 MG/ML 1ML VIAL IV ONE (09:48)
[2024-03-12 10:13] LABS: ERYTHROCYTE SEDIMENTATION RATE 21 mm/hr (0-20)
[2024-03-12] MEDS: LORazepam 2 MG TAB PO PRN (10:51)
[2024-03-12] MEDS: THIAMINE 100 MG TAB PO SCH (10:55)
[2024-03-12] MEDS: MULTIVITAMINS/MINERALS THERAP 1 TAB PO SCH (10:55)
[2024-03-12] MEDS: FOLIC ACID 1MG TAB PO SCH (10:55)
[2024-03-12] MEDS: HEPARIN SOD (PORCINE) 5000UNITS/ML 1ML VIAL/SYRINGE SQ SCH (10:55)
[2024-03-12 12:10] LABS: C REACTIVE PROTEIN QUANTITATIV 1.31 MG/DL (<1.0)
[2024-03-12 12:12] LABS: ALBUMIN 3.5 G/DL (3.2-5.2); ALKALINE PHOSPHATASE 117 U/L (40-129); ALT/SGPT 43 U/L (7.0-40); AST/SGOT 63 U/L (<34); BILIRUBIN,DIRECT 1.1 MG/DL (<0.4); BILIRUBIN,TOTAL 2.8 MG/DL (0.3-1.2)
[2024-03-12 12:22] LABS: THYROID STIMULATING HORMONE 5.364 uIU/ML (0.55-4.78)
[2024-03-12 12:44] LABS: CORTISOL AM 45.2 UG/DL (4.3-22.4)
[2024-03-12 12:48] LABS: FREE T4 1.55 NG/DL (0.89-1.76)
[2024-03-12 13:00] LABS: SOURCE, BODY FLUID pH PLEURAL
[2024-03-12 13:02] LABS: APPEARANCE, BODY FLUID CLEAR (CLEAR); PLEURAL FL COLOR YELLOW (COLORLESS); SOURCE, BODY FLUID PLEURAL
[2024-03-12 13:11] LABS: FREE T4 1.61 NG/DL (0.89-1.76)
[2024-03-12 13:12] LABS: CORTISOL BASELINE 37.6 UG/DL (4.3-22.4)
[2024-03-12 13:25] LABS: SOURCE, BODY FLUID ALBUMIN PLEURAL
[2024-03-12 13:30] LABS: SOURCE, BODY FLUID GLUCOSE PLEURAL; SOURCE, BODY FLUID TRIG PLEURAL; TRIGLYCERIDE, BODY FLUID 47 MG/DL (NOT ESTABLISHED)
[2024-03-12 13:31] LABS: LDH, BODY FLUID 112 U/L (NOT ESTABLISHED); SOURCE, BODY FLUID LDH PLEURAL; SOURCE, BODY FLUID TOT PROTEIN PLEURAL; TOTAL PROTEIN, BODY FLUID 3.2 G/DL (NOT ESTABLISHED)
[2024-03-12 13:32] LABS: AMYLASE, BODY FLUID 37 U/L (NOT ESTABLISHED); CHOLESTEROL, BODY FLUID 62 MG/DL (NOT ESTABLISHED); SOURCE, BODY FLUID AMYLASE PLEURAL; SOURCE, BODY FLUID CHOL PLEURAL
[2024-03-12 18:52] LABS: BLOOD UREA NITROGEN 29 MG/DL (9-23); CALCIUM LEVEL 9.1 MG/DL (8.5-10.1); CARBON DIOXIDE LEVEL 19 MMOL/L (20-31); CHLORIDE LEVEL 102 MMOL/L (98-107); CREATININE FOR GFR 1.01 MG/DL (0.70-1.30); GLOMERULAR FILTRATION RATE > 60.0 (>56); GLUCOSE, FASTING 119 MG/DL (60-100); POTASSIUM SERUM 4.5 MMOL/L (3.5-5.1); SODIUM LEVEL 137 MMOL/L (136-145)
[2024-03-12] MEDS: HALOPERIDOL LACTATE 5MG/ML VIAL IM STA (23:38)
[2024-03-13] VITALS (11 sets, daily range): BP systolic 108–137; BP diastolic 66–92; TEMP 97.4–98.2; O2SAT 86–98
[2024-03-13] MEDS: diphenhydrAMINE 50MG/ML VIAL IV ONE (02:39)
[2024-03-13] MEDS: LORazepam 2 MG/ML 1ML VIAL IV STA (05:23)
[2024-03-13 06:07] LABS: HEMATOCRIT 34.2 % (42.0-52.0); HEMOGLOBIN 10.9 g/dl (13.5-17.5); MEAN CORPUSCULAR HEMOGLOBIN 25.1 pg (27.0-33.0); MEAN CORPUSCULAR HGB CONC 31.9 g/dl (32.0-36.5); MEAN CORPUSCULAR VOLUME 78.8 fl (80.0-96.0); PLATELET COUNT, AUTOMATED 234 10^3/uL (150-450); RED BLOOD COUNT 4.34 10^6/uL (4.30-6.10); WHITE BLOOD COUNT 9.2 10^3/uL (4.0-10.0)
[2024-03-13 06:34] LABS: BLOOD UREA NITROGEN 33 MG/DL (9-23); CALCIUM LEVEL 8.7 MG/DL (8.5-10.1); CARBON DIOXIDE LEVEL 22 MMOL/L (20-31); CHLORIDE LEVEL 104 MMOL/L (98-107); CREATININE FOR GFR 0.99 MG/DL (0.70-1.30); GLOMERULAR FILTRATION RATE > 60.0 (>56); GLUCOSE, FASTING 132 MG/DL (60-100); MAGNESIUM LEVEL 2.2 MG/DL (1.8-2.4); POTASSIUM SERUM 3.7 MMOL/L (3.5-5.1); SODIUM LEVEL 140 MMOL/L (136-145)
[2024-03-13] MEDS: chlordiazePOXIDE 25 MG CAP PO SCH (10:42)
[2024-03-13] MEDS ORDERED: GLUCAGON INJ 1MG VIAL SC PRN (15:35)
[2024-03-13] MEDS ORDERED: GLUCOSE 4 GM CHEW PO PRN (15:35)
[2024-03-13] MEDS ORDERED: DEXTROSE 50% 50ML SYRINGE IV PRN (15:35)
[2024-03-13] MEDS: INSULIN LISPRO (NovoLOG) PER UNIT SC SCH (18:00)
[2024-03-13 18:41] LABS: BLOOD UREA NITROGEN 31 MG/DL (9-23); CALCIUM LEVEL 8.6 MG/DL (8.5-10.1); CARBON DIOXIDE LEVEL 24 MMOL/L (20-31); CHLORIDE LEVEL 106 MMOL/L (98-107); CREATININE FOR GFR 0.91 MG/DL (0.70-1.30); GLOMERULAR FILTRATION RATE > 60.0 (>56); GLUCOSE, FASTING 114 MG/DL (60-100); POTASSIUM SERUM 3.5 MMOL/L (3.5-5.1); SODIUM LEVEL 142 MMOL/L (136-145)
[2024-03-14] VITALS (7 sets, daily range): BP systolic 97–126; BP diastolic 51–85; TEMP 97.3–97.8; O2SAT 93–98
[2024-03-14 05:33] LABS: HEMATOCRIT 35.6 % (42.0-52.0); HEMOGLOBIN 11.3 g/dl (13.5-17.5); MEAN CORPUSCULAR HGB CONC 31.7 g/dl (32.0-36.5); MEAN CORPUSCULAR VOLUME 81.8 fl (80.0-96.0); PLATELET COUNT, AUTOMATED 193 10^3/uL (150-450); RED BLOOD COUNT 4.35 10^6/uL (4.30-6.10); WHITE BLOOD COUNT 6.3 10^3/uL (4.0-10.0)
[2024-03-14 06:03] LABS: BLOOD UREA NITROGEN 29 MG/DL (9-23); CALCIUM LEVEL 8.4 MG/DL (8.5-10.1); CARBON DIOXIDE LEVEL 25 MMOL/L (20-31); CHLORIDE LEVEL 106 MMOL/L (98-107); CREATININE FOR GFR 0.75 MG/DL (0.70-1.30); GLOMERULAR FILTRATION RATE > 60.0 (>56); GLUCOSE, FASTING 96 MG/DL (60-100); POTASSIUM SERUM 3.6 MMOL/L (3.5-5.1); SODIUM LEVEL 142 MMOL/L (136-145)
[2024-03-14] MEDS ORDERED: GLUCAGON INJ 1MG VIAL SC PRN (09:30)
[2024-03-14] MEDS ORDERED: GLUCOSE 4 GM CHEW PO PRN (09:30)
[2024-03-14] MEDS ORDERED: DEXTROSE 50% 50ML SYRINGE IV PRN (09:30)
[2024-03-14] MEDS: FUROSEMIDE 40 MG TAB PO SCH (12:39)
[2024-03-14] MEDS: LevoFLOXacin 750 MG TABLET PO SCH (12:39)
[2024-03-14] MEDS: INSULIN LISPRO (NovoLOG) PER UNIT SC SCH ×2 (12:39→20:36)
[2024-03-14] MEDS: chlordiazePOXIDE 25 MG CAP PO SCH (16:30)
[2024-03-14] MEDS: FUROSEMIDE 40MG/4ML VIAL IV ONE (18:09)
[2024-03-14 18:49] LABS: BLOOD UREA NITROGEN 28 MG/DL (9-23); CALCIUM LEVEL 8.3 MG/DL (8.5-10.1); CARBON DIOXIDE LEVEL 25 MMOL/L (20-31); CHLORIDE LEVEL 100 MMOL/L (98-107); CREATININE FOR GFR 0.77 MG/DL (0.70-1.30); GLOMERULAR FILTRATION RATE > 60.0 (>56); GLUCOSE, FASTING 124 MG/DL (60-100); POTASSIUM SERUM 3.6 MMOL/L (3.5-5.1); SODIUM LEVEL 135 MMOL/L (136-145)
[2024-03-14] MEDS: NICOTINE 21MG/24HR 1 EA TRANSDERMAL TD PRN (19:22)
[2024-03-14] MEDS: ONDANSETRON 4MG 2ML VIAL IV PRN (23:20)
[2024-03-15] VITALS (10 sets, daily range): BP systolic 91–124; BP diastolic 52–79; TEMP 97–98.2; O2SAT 96–100
[2024-03-15 05:13] LABS: HEMATOCRIT 36.4 % (42.0-52.0); HEMOGLOBIN 11.2 g/dl (13.5-17.5); MEAN CORPUSCULAR HEMOGLOBIN 25.3 pg (27.0-33.0); MEAN CORPUSCULAR HGB CONC 30.8 g/dl (32.0-36.5); MEAN CORPUSCULAR VOLUME 82.2 fl (80.0-96.0); PLATELET COUNT, AUTOMATED 191 10^3/uL (150-450); RED BLOOD COUNT 4.43 10^6/uL (4.30-6.10); WHITE BLOOD COUNT 6.5 10^3/uL (4.0-10.0)
[2024-03-15 05:43] LABS: BLOOD UREA NITROGEN 25 MG/DL (9-23); CALCIUM LEVEL 7.7 MG/DL (8.5-10.1); CARBON DIOXIDE LEVEL 27 MMOL/L (20-31); CHLORIDE LEVEL 101 MMOL/L (98-107); CREATININE FOR GFR 0.94 MG/DL (0.70-1.30); GLOMERULAR FILTRATION RATE > 60.0 (>56); GLUCOSE, FASTING 143 MG/DL (60-100); POTASSIUM SERUM 3.2 MMOL/L (3.5-5.1); SODIUM LEVEL 140 MMOL/L (136-145)
[2024-03-15] MEDS ORDERED: LevoFLOXacin 750 MG TABLET PO SCH (06:00)
[2024-03-15] MEDS: KCL 10MEQ/100ML SWI (KRUN) 10 MEQ in IV 1 EA IV SCH (08:15)
[2024-03-15] MEDS: POTASSIUM CHLORIDE 10MEQ SR TABLET PO ONE ×2 (08:16→11:11)
[2024-03-15] MEDS: chlordiazePOXIDE 25 MG CAP PO SCH (08:22)
[2024-03-15] MEDS ORDERED: NICOTINE 21MG/24HR 1 EA TRANSDERMAL TD SCH (09:00)
[2024-03-15] MEDS ORDERED: LEVO1TAB40 PO (16:08)
[2024-03-15] MEDS ORDERED: TOPR25TA PO (16:30)
[2024-03-15] MEDS ORDERED: POTA1TAB24 PO (16:30)
[2024-03-15] MEDS ORDERED: CHLO25CA10 PO (16:30)
== END 2024-03-15 17:00 | disposition home or self-care (01) | DRG 194 ==
LOC: EDBD 06:47 → M ED 06:47 → M ED INP 10:43 → M MSPAV 12:42 → M ICU 03-13 10:56
PROVIDERS: ADMIT Student in an Organized Health Care Education/Training Program; ATTEND Internal Medicine
PROC: 0W993ZZ Drainage of Right Pleural Cavity, Percutaneous Approach (ICD-10-PCS; 2024-03-12)
PROC: B246ZZZ Ultrasonography of Right and Left Heart (ICD-10-PCS; principal; 2024-03-12 15:00)
DX: I11.0 Hypertensive heart disease with heart failure (principal); F10.131 Alcohol abuse with withdrawal delirium; J90 Pleural effusion, not elsewhere classified; I08.1 Rheumatic disorders of both mitral and tricuspid valves; I42.8 Other cardiomyopathies; K72.90 Hepatic failure, unspecified without coma; E78.5 Hyperlipidemia, unspecified; I25.10 Atherosclerotic heart disease of native coronary artery without angina pectoris; I25.5 Ischemic cardiomyopathy; R00.0 Tachycardia, unspecified; E11.9 Type 2 diabetes mellitus without complications; Z79.82 Long term (current) use of aspirin; Z79.84 Long term (current) use of oral hypoglycemic drugs; Z79.899 Other long term (current) drug therapy; Z88.8 Allergy status to other drugs, medicaments and biological substances; Z91.013 Allergy to seafood; Z91.041 Radiographic dye allergy status; R33.9 Retention of urine, unspecified; R41.82 Altered mental status, unspecified; R94.31 Abnormal electrocardiogram [ECG] [EKG]; N40.1 Benign prostatic hyperplasia with lower urinary tract symptoms; J44.9 Chronic obstructive pulmonary disease, unspecified; N39.0 Urinary tract infection, site not specified; I50.33 Acute on chronic diastolic (congestive) heart failure